=== PATIENT | male | born 1960 | race Hispanic/Latino ===

== ENCOUNTER 2020-08-29 21:43 | Inpatient (IN) | payer OTHER ==
[2020-08-29] MEDS ORDERED: SODIUM CHLORIDE 0.9% 1000 ML 1,000 ML IV ONE ×2 (21:56→23:44)
--- NOTE | 2020-08-29 22:05 | Emergency Department Report ---
HPI - General Chief Complaint: Fall Time Seen by Provider: 08/29/20 21:52 - HPI HPI: 59-year-old male with history of hypertension, PTSD, and alcohol use disorder brought in by EMS after he had a ground-level fall from standing sometime today. According to the EMS report, the patient's mother has a boyfriend who checks on him and went to check on him tonight and found him on the floor. The patient admits to drinking several beers today but cannot say how many. According to this individual, he has been drinking nonstop for the past 4 days, not eating, and falling frequently. He typically drinks a lot but has been drinking more over the past few days. The patient smells of alcohol but is alert and oriented x4. The patient does not remember suffering a fall. He states he has no complaints at this time including no headache, no vision change no neck pain no back pain no chest pain no abdominal pain no musculoskeletal pain in any other part of his body, as well as no focal weakness, numbness, or any other complaints. He does not remember his last tetanus shot. ED Past Medical Hx - Past Medical History Previous Medical History?: Yes Hx Hypertension: Yes Additional medical history: PTSD, Alcohol use disorder ED Review of Systems ROS: Stated complaint: ETOH,FALL Other details as noted in HPI Physical Exam - Physical Exam Physical Exam: GENERAL: Well developed and well nourished. No acute distress. Smells of alcohol. A & O x4. HEENT: Normocephalic. There are multiple bruises noted to the face of varying stages throughout. There is large amount of dried blood around the lips and mouth and with small blood clots seen within the mouth. There is no active bleeding. Very dry mucous membranes. Posterior pharynx is within normal limits. We will reassess this region once the patient has been cleaned up EYES: Extraocular movements are intact. Pupils are equal round and reactive to light bilaterally NECK: Trachea is midline. C-collar is in place LUNGS: Nonlabored breathing. Equal chest rise bilaterally. Clear to auscultation bilaterally. HEART/CARDIOVASCULAR: Tachycardic but with regular rhythm. No murmurs or rubs. VASCULAR: 2+ peripheral pulses. Cap refill < 2 seconds ABDOMEN: Abdomen is distended but soft and nontender. There is no significant tenderness, guarding or rebound. SKIN: Skin is warm and dry with scattered bruises of varying stages noted throughout the body including to the left lateral knee region, the right knee, and throughout both upper and lower extremities. NEURO: Patient is awake, alert, and oriented. 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 No focal deficits. Normal motor and sensory exam throughout. Normal speech. MUSCULOSKELETAL: No obvious deformities. No significant tenderness. Normal ROM throughout. There is no varus/valgus or anterior/posterior laxity of the bilateral knees. There is no tenderness of the malleoli or base of the fifth metatarsal bilaterally. There is no tenderness at the wrists, arms, shoulder, clavicle, or any other region. BACK/SPINE: The patient was rolled and there is no midline tenderness or step- offs of the C/T/L spine. No costovertebral angle tenderness. ED Medical Decision Making - Lab Data Result diagrams: 08/29/20 22:18 08/29/20 22:18 - EKG Data -: EKG Interpreted by Vt - EKG Data 08/30/20 00:14 Sinus tachycardia. Normal axis. Normal intervals. No ectopy. No significant ST segment or T wave abnormalities. - Radiology Data CT HEAD WITHOUT CONTRAST INDICATION / CLINICAL INFORMATION: trauma +etoh. TECHNIQUE: All CT scans at this location are performed using CT dose reduction for [employer] by means of automated exposure control. COMPARISON: None available. FINDINGS: HEMORRHAGE: None. EXTRA-AXIAL SPACES: Mildly prominent likely related to cortical atrophy. VENTRICULAR SYSTEM: Normal in size and morphology for the patient's age. CEREBRAL PARENCHYMA: No significant abnormality. No acute territorial infarct. MIDLINE SHIFT / HERNIATION: None. CEREBELLUM / BRAINSTEM: No significant abnormality. ORBITS: Normal as visualized. SOFT TISSUES: No significant abnormality. SKULL: No significant abnormality. PARANASAL SINUSES / MASTOID AIR CELLS: Normal as visualized. ADDITIONAL FINDINGS: None. IMPRESSION: 1. No acute intracranial abnormality. Signer Name: Jad Santillan MD Signed: 08/29/2020 10:06 PM Workstation Name: [id number] CT CERVICAL SPINE WITHOUT CONTRAST INDICATION / CLINICAL INFORMATION: fall, etoh. TECHNIQUE: Axial CT images were obtained through the cervical spine. Sagittal and coronal reformatted images were produced. All CT scans at this location are performed using CT dose reduction for ALARA by means of automated exposure control. COMPARISON: None available. FINDINGS: No fracture or dislocation is seen. There is multilevel degenerative change more severe in the lower cervical spine. There is disc space narrowing and osteophyte formation most prominent at C5-6 and C6-7. There is facet degenerative change throughout the cervical spine. Prevertebral soft tissues are unremarkable. LUNG APICES: No significant abnormality of visualized lungs. IMPRESSION: 1. No fracture or subluxation is seen. Degenerative changes are noted. Signer Name: Jad Santillan MD Signed: 08/29/2020 10:13 PM Workstation Name: [id number] CT facial bones wo con INDICATION: Facial trauma. TECHNIQUE: All CT scans at this location are performed using the following dose modulation technique: Automated exposure control. Helical slices were obtained through the facial bones. Coronal and sagittal reformatted images were obtained. COMPARISON: None available. FINDINGS: Mucosal thickening is noted in the maxillary sinuses. There is a mucous retention cyst in the right maxillary sinus. No fracture is seen. No dislocation is seen. No focal lytic or sclerotic lesions are seen. IMPRESSION: 1. No fracture is seen. Signer Name: Jad Santillan MD Signed: 08/29/2020 10:09 PM Workstation Name: [id number] - Medical Decision Making 5-year-old male with history of alcohol use disorder who admits to being intox icated and fell at some point today hitting his face on the carpet. Patient has apparently been drinking nonstop for the past 4 days. He has multiple bruises throughout his face and throughout his body of varying stages. He currently has no complaints but is amnesic to his fall. He has dried blood noted over his lips and intraorally with contusions noted to his lips. He has very dry mucous membranes. He is alert and oriented x4 and denies any complaints. The patient arrived in a c-collar. He does not remember his last Tdap. Examination reveals no evidence of musculoskeletal tenderness, reduced range of motion, or laxity at any of his joints. Nonetheless we will perform broad work-up with a full set of labs and CT of the head, cervical spine, and face to evaluate for injuries given that he is intoxicated and does not remember the fall as evidence of trauma. His vital signs are notable for tachycardia in the 130s. However he has very dry mucous membranes and appears to be fluid depleted. We will give 1 L of normal saline as well as 1 banana bag and Tdap. Will reassess the patient after he has been cleaned up and any open wounds/lacerations irrigated with saline. After the facial region was washed copiously with saline, I reexamined the area and there is a contusion noted to the bottom lip with a small overlying abrasion but no laceration. Intraorally there are no obvious lacerations or puncture wounds. Examination of the nares reveals no evidence of septal hematoma. There are no other lacerations noted to the head or face. At 10:30 PM, the nurse alerted me that the patient has started to show signs of withdrawal including tremulousness. He will be given 2 mg of Ativan. CIWA protocol will be initiated. CT of the head, C-spine, and face reveals no evidence of acute fracture or acute abnormalities. Labs have partially resulted and there is no significant leukocytosis or anemia. The patient's blood alcohol level is 0.43. I went to reassess the patient at 11:20 PM, and only 1 hour and 30 minutes after his arrival he now has fine tremor of his fingers and in his legs as well as a tongue lag. He is tachycardic and hypertensive. Although the patient was alert and oriented when he first arrived, he now states that he is confused. He states that he lives at home with roommates. However, the EMS story was that he was at home alone and that his mom's boyfriend checks on him daily. Given that the patient is showing signs of alcohol withdrawal at such a high blood alcohol level, I do not feel that he would be safe for discharge at this time. The patient's chemistry reveals signs of dehydration without significant electrolyte abnormalities. Kidney function is normal. His AST and ALT are elevated at 473 and 160 respectively, which is consistent with alcoholic hepatitis. I will add on a CK level given that we do not know how long the patient was down, although given his very high blood alcohol level I doubt he was down for very long. At 1:45 PM I spoke over the phone with Dr. Armenta, the on-call hospitalist regarding the case. He accepts the patient for admission and will assume care. I will follow up the CK level and update the admitting doctor regarding the results. For now I will add on an additional liter of IV fluids CK level only mildly elevated at 370. The patient's c-collar has been cleared. The hospitalist has been alerted. Critical Care Time: Yes Critical care time in (mins) excluding proc time.: 55 Critical care attestation.: If time is entered above; I have spent that time in minutes in the direct care of this critically ill patient, excluding procedure time. Critical care time was spent in the evaluation/assessment, work-up, and management of severe alcohol intoxication with evidence of head trauma and alcohol withdrawal requiring administration of IV lorazepam as well as frequent reevaluation reassessment. ED Disposition Clinical Impression: Alcohol intoxication, Fall, Facial injury, Alcohol abuse, Frequent falls, Alcohol withdrawal Disposition: DC-09 OP ADMIT IP TO THIS HOSP Is pt being admited?: Yes Condition: Stable
[2020-08-29] MEDS ORDERED: TETANUS,DIPH,PERTUSS(ACELL) VACCINE 0.5 ML SYRINGE IM ONE (22:14)
[2020-08-29] MEDS ORDERED: THIAMINE 100 MG, FOLIC ACID 1 MG, MULTIPLE VITAMIN INJ, ADULT 10 ML in SODIUM CHLORIDE ... IV ONE (22:30)
[2020-08-29] MEDS ORDERED: LORazepam 2 MG/ML VIAL IV ONE (22:55)
[2020-08-29 22:59] LABS: Hematocrit 39.7 % (35.5-45.6); Mean Corpuscular HGB Conc 35 % (32-34); Mean Corpuscular Volume 97 fl (84-94); Platelet Count 159 K/mm3 (140-440); Red Blood Count 4.08 M/mm3 (3.65-5.03); Red Cell Distribution Width 14.3 % (13.2-15.2)
[2020-08-29 23:10] LABS: INR 1.03 (0.87-1.13)
--- NOTE | 2020-08-29 23:10 | Cat Scan Report ---
CT HEAD WITHOUT CONTRAST INDICATION / CLINICAL INFORMATION: trauma +etoh. TECHNIQUE: All CT scans at this location are performed using CT dose reduction for [employer] by means of automated exposure control. COMPARISON: None available. FINDINGS: HEMORRHAGE: None. EXTRA-AXIAL SPACES: Mildly prominent likely related to cortical atrophy. VENTRICULAR SYSTEM: Normal in size and morphology for the patient's age. CEREBRAL PARENCHYMA: No significant abnormality. No acute territorial infarct. MIDLINE SHIFT / HERNIATION: None. CEREBELLUM / BRAINSTEM: No significant abnormality. ORBITS: Normal as visualized. SOFT TISSUES: No significant abnormality. SKULL: No significant abnormality. PARANASAL SINUSES / MASTOID AIR CELLS: Normal as visualized. ADDITIONAL FINDINGS: None. IMPRESSION: 1. No acute intracranial abnormality. Signer Name: Jad Santillan MD Signed: 08/29/2020 11:06 PM Workstation Name: [id number]
[2020-08-29 23:11] LABS: Partial Thromboplastin Time 31.1 Sec. (24.2-36.6)
--- NOTE | 2020-08-29 23:14 | Cat Scan Report ---
CT facial bones wo con INDICATION: Facial trauma. TECHNIQUE: All CT scans at this location are performed using the following dose modulation technique: Automated exposure control. Helical slices were obtained through the facial bones. Coronal and sagittal reforma tted images were obtained. COMPARISON: None available. FINDINGS: Mucosal thickening is noted in the maxillary sinuses. There is a mucous retention cyst in the right m axillary sinus. No fracture is seen. No dislocation is seen. No focal lytic or sclerotic lesions are seen. IMPRESSION: 1. No fracture is seen. Signer Name: Jad Santillan MD Signed: 08/29/2020 11:09 PM Workstation Name: [id number]
--- NOTE | 2020-08-29 23:17 | Cat Scan Report ---
CT CERVICAL SPINE WITHOUT CONTRAST INDICATION / CLINICAL INFORMATION: fall, etoh. TECHNIQUE: Axial CT images were obtained through the cervical spine. Sagittal and coronal reformatted images were produced. All CT scans at this location are performed using CT dose reduction for [employer] by means of automated exposure control. COMPARISON: None available. FINDINGS: No fracture or dislocation is seen. There is multilevel degenerative change more severe in the lower cervical spine. There is disc space narrowing and osteophyte formation most prominent at C5-6 and C6- 7. There is facet degenerative change throughout the cervical spine. Prevertebral soft tissues are u nremarkable. LUNG APICES: No significant abnormality of visualized lungs. IMPRESSION: 1. No fracture or subluxation is seen. Degenerative changes are noted. Signer Name: Jad Santillan MD Signed: 08/29/2020 11:13 PM Workstation Name: [id number]
[2020-08-29 23:24] LABS: Alanine Aminotransferase 160 units/L (7-56); Albumin 3.8 g/dL (3.9-5); Bilirubin,Direct 0.9 mg/dL (0-0.2); Blood Urea Nitrogen 3 mg/dL (9-20); Calcium 8.4 mg/dL (8.4-10.2); Hemolysis Index 2
[2020-08-29 23:37] LABS: BUN/Creatinine Ratio 5
[2020-08-30] MEDS ORDERED: ALBUTEROL 2.5 MG/3 ML NEBU IH PRN (00:19)
[2020-08-30] MEDS ORDERED: ONDANSETRON 4 MG/2 ML INJ IV PRN (00:19)
[2020-08-30] MEDS ORDERED: ACETAMINOPHEN 325 MG TAB PO PRN (00:19)
[2020-08-30 00:31] LABS: Amphetamine Screen,Urine PRESUMPTIVE NEGATIVE; Benzodiazepines Screen,Urine PRESUMPTIVE NEGATIVE; Cannabinoid Screen,Urine PRESUMPTIVE NEGATIVE; Cocaine Screen,Urine PRESUMPTIVE NEGATIVE; Methadone Screen,Urine PRESUMPTIVE NEGATIVE; Opiate Screen,Urine PRESUMPTIVE NEGATIVE
--- NOTE | 2020-08-30 00:32 | History and Physical Report ---
History of Present Illness Date of examination: 08/30/20 Date of admission: 08/30/2020 Chief complaint: Alcohol intoxication Fall History of present illness: 59-year-old male with history of hypertension, PTSD, and alcohol use disorder brought in by EMS after he had a ground-level fall from standing sometime today. According to the EMS report, the patient's mother has a boyfriend who checks on him and went to check on him tonight and found him on the floor. The patient admits to drinking several beers today but cannot say how many. According to this individual, he has been drinking nonstop for the past 4 days, not eating, and falling frequently. He typically drinks a lot but has been drinking more over the past few days. The patient smells of alcohol but is alert and oriented x4. The patient does not remember suffering a fall. He states he has no c omplaints at this time including no headache, no vision change no neck pain no back pain no chest pain no abdominal pain no musculoskeletal pain in any other part of his body, as well as no focal weakness, numbness, or any other complaints. He does not remember his last tetanus shot. In the emergency room patient alcohol level is 0.43. Also AST is 473 ALT [address] scan of the head shows no acute intracranial abnormality Past History Past Medical History: hypertension, other (PTSD alcohol abuse) Medications and Allergies Allergies Allergy/AdvReac Type Severity Reaction Status Date / Time No Known Allergies Allergy Verified 08/29/20 22:38 Active Meds: Active Medications Acetaminophen (Acetaminophen 325 Mg Tab) 650 mg PO Q4H PRN PRN Reason: Pain MILD(1-3)/Fever >100.5/AMOS Albuterol (Albuterol 2.5 Mg/3 Ml Nebu) 2.5 mg IH Q4HRT PRN PRN Reason: Shortness Of Breath Albuterol/Ipratropium (Ipratropium/Albuterol Sulfate 3 Ml Ampul.Neb) 1 ampul IH Q6HRT LEANNE Famotidine (Famotidine 20 Mg Tab) 20 mg PO BID LEANNE Thiamine HCl 100 mg/ Folic Acid 1 mg/ Multivitamins/Minerals 10 ml/ Sodium Chloride 1,011.2 mls @ 250 mls/hr IV ONCE ONE Stop: 08/30/20 02:32 Sodium Chloride (Nacl 0.9% 1000 Ml) 1,000 mls @ 999 mls/hr IV BOLUS ONE Stop: 08/30/20 00:44 Lorazepam (Lorazepam 2 Mg/Ml Vial) 2 mg IV Q1HR PRN PRN Reason: CIWA-Ar 8-15 Lorazepam (Lorazepam 2 Mg/Ml Vial) 4 mg IV Q1HR PRN PRN Reason: CIWA-Ar 16-25 Ondansetron HCl (Ondansetron 4 Mg/2 Ml Inj) 4 mg IV Q8H PRN PRN Reason: Nausea And Vomiting Sodium Chloride (Sodium Chloride 0.9% 10 Ml Flush Syringe) 10 ml IV BID LEANNE Sodium Chloride (Sodium Chloride 0.9% 10 Ml Flush Syringe) 10 ml IV PRN PRN PRN Reason: LINE FLUSH Review of Systems Constitutional: other (Fall) Ears, nose, mouth and throat: other (There are multiple bruises noted to the face of varying stages throughout. There is large amount of dried blood around the lips and mouth and with small blood clots seen within the mouth. There is no active bleeding. Very dry mucous membranes. Posterior pharynx is within normal limits. We will re) Exam - Constitutional Vitals: Temp Pulse Resp BP Pulse Ox 98.1 F 113 H 27 H 160/111 93 08/29/20 22:38 08/29/20 23:30 08/29/20 23:30 08/29/20 23:30 08/29/20 23:30 General appearance: Present: no acute distress, well-nourished, other (There are multiple bruises noted to the face of varying stages throughout. There is large amount of dried blood around the lips and mouth and with small blood clots seen within the mouth. There is no active bleeding. Very dry mucous membranes. Posterior pharynx is within normal limits. We will re) - EENT Eyes: Present: PERRL ENT: hearing intact, clear oral mucosa - Neck Neck: Present: supple, normal ROM - Respiratory Respiratory effort: normal Respiratory: bilateral: CTA - Cardiovascular Heart Sounds: Present: S1 & S2. Absent: rub, click - Extremities Extremities: pulses symmetrical, No edema Peripheral Pulses: within normal limits - Abdominal General gastrointestinal: Present: soft, non-tender, non-distended, normal bowel sounds Male genitourinary: Present: normal - Integumentary Integumentary: Present: clear, warm, dry - Musculoskeletal Musculoskeletal: gait normal, strength equal bilaterally - Psychiatric Psychiatric: appropriate mood/affect, intact judgment & insight - Neurologic Neurologic: CNII-XII intact, moves all extremities HEART Score - HEART Score Troponin: Troponin T < 0.010 ng/mL (0.00-0.029) 08/29/20 22:18 Results - Labs CBC & Chem 7: 08/29/20 22:18 08/29/20 22:18 Labs: Laboratory Last Values WBC 5.8 K/mm3 (4.5-11.0) 08/29/20 22:18 RBC 4.08 M/mm3 (3.65-5.03) 08/29/20 22:18 Hgb 14.0 gm/dl (11.8-15.2) 08/29/20 22:18 Hct 39.7 % (35.5-45.6) 08/29/20 22:18 MCV 97 fl (84-94) H 08/29/20 22:18 MCH 34 pg (28-32) H 08/29/20 22:18 MCHC 35 % (32-34) H 08/29/20 22:18 RDW 14.3 % (13.2-15.2) 08/29/20 22:18 Plt Count 159 K/mm3 (140-440) 08/29/20 22:18 PT 14.0 Sec. (12.2-14.9) 08/29/20 22:18 INR 1.03 (0.87-1.13) 08/29/20 22:18 APTT 31.1 Sec. (24.2-36.6) 08/29/20 22:18 Sodium 130 mmol/L (137-145) L 08/29/20 22:18 Potassium 3.6 mmol/L (3.6-5.0) 08/29/20 22:18 Chloride 91.1 mmol/L (98-107) L 08/29/20 22:18 Carbon Dioxide 16 mmol/L (22-30) L 08/29/20 22:18 Anion Gap 27 mmol/L 08/29/20 22:18 BUN 3 mg/dL (9-20) L 08/29/20 22:18 Creatinine 0.6 mg/dL (0.8-1.3) L 08/29/20 22:18 Estimated GFR > 60 ml/min 08/29/20 22:18 BUN/Creatinine Ratio 5 % 08/29/20 22:18 Glucose 87 mg/dL (75-100) 08/29/20 22:18 Calcium 8.4 mg/dL (8.4-10.2) 08/29/20 22:18 Magnesium 1.90 mg/dL (1.7-2.3) 08/29/20 22:18 Total Bilirubin 1.30 mg/dL (0.1-1.2) H 08/29/20 22:18 Direct Bilirubin 0.9 mg/dL (0-0.2) H 08/29/20 22:18 Indirect Bilirubin 0.4 mg/dL 08/29/20 22:18 AST 473 units/L (5-40) H 08/29/20 22:18 ALT 160 units/L (7-56) H 08/29/20 22:18 Alkaline Phosphatase 192 units/L (35-129) H 08/29/20 22:18 Total Creatine Kinase 374 units/L (55-170) H 08/29/20 22:30 Troponin T < 0.010 ng/mL (0.00-0.029) 08/29/20 22:18 Total Protein 7.2 g/dL (6.3-8.2) 08/29/20 22:18 Albumin 3.8 g/dL (3.9-5) L 08/29/20 22:18 Albumin/Globulin Ratio 1.1 % 08/29/20 22:18 Salicylates < 0.3 mg/dL (2.8-20.0) L 08/29/20 22:18 Acetaminophen 5.0 ug/mL (10.0-30.0) L 08/29/20 22:18 Plasma/Serum Alcohol 0.43 % (0-0.07) H 08/29/20 22:18 - Imaging and Cardiology CT Scan - head: report reviewed Assessment and Plan VTE prophylaxis?: Mechanical Plan of care discussed with patient/family: Yes - Patient Problems (1) Alcohol intoxication Current Visit: Yes Status: Acute Plan to address problem: Admit the patient to the medical telemetry. Counseled regarding quit drinking. Put the patient on CIWA protocol. We also put the patient on banana bag IV daily. Thiamine 100 mg IV daily and folic acid 1 mg IV daily. We will monitor the patient closely (2) Fall Current Visit: Yes Status: Acute Plan to address problem: Patient is on fall precaution. We also consult physical therapy (3) Facial injury Current Visit: Yes Status: Acute Plan to address problem: Face CT and cervical spine and head CT shows no acute injury. We will monitor the patient closely. We will put the patient on fall precaution (4) Hypertension Current Visit: Yes Status: Acute Plan to address problem: Hydralazine 10 mg IV every 6 hours as needed. We will monitor the blood pressure closely (5) Alcohol abuse Current Visit: Yes Status: Acute Plan to address problem: Counseled regarding quit drinking. Put the patient on CIWA protocol. We also put the patient on banana bag IV daily. Thiamine 100 mg IV daily and folic acid 1 mg IV daily. We will monitor the patient closely (6) PTSD (post-traumatic stress disorder) Current Visit: Yes Status: Acute Plan to address problem: We will monitor the patient closely. Outpatient follow-up with psych (7) DVT prophylaxis Current Visit: Yes Status: Acute Plan to address problem: SCD for DVT prophylaxis because of facial trauma. Pepcid 20 mg p.o. twice daily for GI prophylaxis. Patient is a full code
--- NOTE | 2020-08-30 00:38 | XRay Report ---
CHEST 1 VIEW 08/29/2020 11:23 PM INDICATION / CLINICAL INFORMATION: fall. COMPARISON: None available. FINDINGS: SUPPORT DEVICES: None. HEART / MEDIASTINUM: No significant abnormality. LUNGS / PLEURA: No significant pulmonary or pleural abnormality. No pneumothorax. ADDITIONAL FINDINGS: There is mild elevation of the right hemidiaphragm. IMPRESSION: 1. No acute findings. Signer Name: Jad Santillan MD Signed: 08/30/2020 12:33 AM Workstation Name: [id number]
[2020-08-30 01:25] LABS: Anisocytosis 1+; Platelet Estimate Consistent w Auto; Total Cells Counted 100
[2020-08-30] MEDS: LORazepam 2 MG/ML VIAL IV PRN ×6 (03:26→21:50)
[2020-08-30] MEDS: IPRATROPIUM/ALBUTEROL SULFATE 3 ML AMPUL.NEB IH SCH ×4 (03:48→20:17)
--- NOTE | 2020-08-30 10:30 | Gastroenterology Consultation ---
History of Present Illness - Reason for Consult Consult date: 08/30/20 abnormal liver enzymes Requesting physician: MERLIN UMANA - History of Present Illness The patient is a 59 yo male who presented after being found down/after a fall. History primarily obtained from chart review. pt with h/o alcohol abuse, he was sleeping but arousable and being treated for alcohol withdrawal. has tremors at bedside. he states last alcohol intake was prior to arrival. he does not provide more history on duration of alcohol use. noted to have elevated liver enzymes, primarily hepatocellular pattern with ast>alt. he is not aware of prior h/of known liver disease. denies abd pain. Past History Past Medical History: hypertension, other (PTSD alcohol abuse) Medications and Allergies Allergies Allergy/AdvReac Type Severity Reaction Status Date / Time No Known Allergies Allergy Verified 08/29/20 22:38 Active Meds: Active Medications Acetaminophen (Acetaminophen 325 Mg Tab) 650 mg PO Q4H PRN PRN Reason: Pain MILD(1-3)/Fever >100.5/AMOS Albuterol (Albuterol 2.5 Mg/3 Ml Nebu) 2.5 mg IH Q4HRT PRN PRN Reason: Shortness Of Breath Albuterol/Ipratropium (Ipratropium/Albuterol Sulfate 3 Ml Ampul.Neb) 1 ampul IH Q6HRT [facility] Last Admin: 08/30/20 10:05 Dose: 1 ampul Documented by: Famotidine (Famotidine 20 Mg Tab) 20 mg PO BID [facility] Thiamine HCl 100 mg/ Folic Acid 1 mg/ Multivitamins/Minerals 10 ml/ Sodium Chloride 1,011.2 mls @ 250 mls/hr IV DAILY ONE Stop: 08/31/20 02:32 Lorazepam (Lorazepam 2 Mg/Ml Vial) 2 mg IV Q1HR PRN PRN Reason: CIWA-Ar 8-15 Last Admin: 08/30/20 06:09 Dose: 2 mg Documented by: Lorazepam (Lorazepam 2 Mg/Ml Vial) 4 mg IV Q1HR PRN PRN Reason: VIJAY-Ar 16-25 Ondansetron HCl (Ondansetron 4 Mg/2 Ml Inj) 4 mg IV Q8H PRN PRN Reason: Nausea And Vomiting Sodium Chloride (Sodium Chloride 0.9% 10 Ml Flush Syringe) 10 ml IV BID LEANNE Sodium Chloride (Sodium Chloride 0.9% 10 Ml Flush Syringe) 10 ml IV PRN PRN PRN Reason: LINE FLUSH reviewed/updated patient's home and current medications Review of Systems - Review of Systems ROS unobtainable: due to mental status Exam - Constitutional Vital Signs: Temp Pulse Resp BP Pulse Ox 98.1 F 103 H 18 131/75 95 08/29/20 22:38 08/30/20 08:00 08/30/20 08:00 08/30/20 05:46 08/30/20 10:00 General appearance: disheveled, other (facial bruises) - EENT Eyes: PERRL, EOM intact - Respiratory Respiratory effort: normal Respiratory: bilateral: CTA - Cardiovascular Rhythm: regular Heart Sounds: Present: S1 & S2 - Gastrointestinal General gastrointestinal: Present: soft, non-tender, non-distended - Neurologic Neurological: oriented to person, other (resting tremors) - Labs CBC & Chem 7: 08/29/20 22:18 08/29/20 22:18 Lab Results: Laboratory Results - last 24 hr 08/29/20 08/29/20 08/29/20 22:18 22:18 22:18 WBC 5.8 RBC 4.08 Hgb 14.0 Hct 39.7 MCV 97 H MCH 34 H MCHC 35 H RDW 14.3 Plt Count 159 Add Manual Diff Complete Total Counted 100 Seg Neuts % (Manual) 84.0 H Lymphocytes % (Manual) 11.0 L Monocytes % (Manual) 4.0 Basophils % (Manual) 1.0 Nucleated RBC % Not Reportable Seg Neutrophils # Man 4.9 Band Neutrophils # 0.0 Lymphocytes # (Manual) 0.6 L Abs React Lymphs (Man) 0.0 Monocytes # (Manual) 0.2 Eosinophils # (Manual) 0.0 Basophils # (Manual) 0.1 Metamyelocytes # 0.0 Myelocytes # 0.0 Promyelocytes # 0.0 Blast Cells # 0.0 WBC Morphology Not Reportable Hypersegmented Neuts Not Reportable Hyposegmented Neuts Not Reportable Hypogranular Neuts Not Reportable Smudge Cells Not Reportable Toxic Granulation Not Reportable Toxic Vacuolation Not Reportable Dohle Bodies Not Reportable Pelger-Huet Anomaly Not Reportable César Rods Not Reportable Platelet Estimate Consistent w auto Clumped Platelets Not Reportable Plt Clumps, EDTA Not Reportable Large Platelets Not Reportable Giant Platelets Not Reportable Platelet Satelliting Not Reportable Plt Morphology Comment Not Reportable RBC Morphology Not Reportable Dimorphic RBCs Not Reportable Polychromasia Not Reportable Hypochromasia Not Reportable Poikilocytosis Not Reportable Anisocytosis 1+ Microcytosis Not Reportable Macrocytosis Not Reportable Spherocytes Not Reportable Pappenheimer Bodies Not Reportable Sickle Cells Not Reportable Target Cells Not Reportable Tear Drop Cells Not Reportable Ovalocytes Not Reportable Helmet Cells Not Reportable Singh-[place] Bodies Not Reportable [place]ering Rings Not Reportable Sukhjinder Cells Not Reportable Bite Cells Not Reportable Crenated Cell Not Reportable Elliptocytes Not Reportable Acanthocytes (Spur) Not Reportable Rouleaux Not Reportable Hemoglobin C Crystals Not Reportable Schistocytes Not Reportable Malaria parasites Not Reportable Abe Bodies Not Reportable Hem Pathologist Commnt No PT 14.0 INR 1.03 APTT 31.1 Sodium 130 L Potassium 3.6 Chloride 91.1 L Carbon Dioxide 16 L Anion Gap 27 BUN 3 L Creatinine 0.6 L Estimated GFR > 60 BUN/Creatinine Ratio 5 Glucose 87 Calcium 8.4 Magnesium Total Bilirubin 1.30 H Direct Bilirubin 0.9 H Indirect Bilirubin 0.4 AST 473 H ALT 160 H Alkaline Phosphatase 192 H Total Creatine Kinase Troponin T Total Protein 7.2 Albumin 3.8 L Albumin/Globulin Ratio 1.1 Salicylates Urine Opiates Screen Urine Methadone Screen Acetaminophen Ur Barbiturates Screen Ur Phencyclidine Scrn Ur Amphetamines Screen U Benzodiazepines Scrn Urine Cocaine Screen U Marijuana (THC) Screen Drugs of Abuse Note Plasma/Serum Alcohol 08/29/20 08/29/20 08/29/20 22:18 22:18 22:18 WBC RBC Hgb Hct MCV MCH MCHC RDW Plt Count Add Manual Diff Total Counted Seg Neuts % (Manual) Lymphocytes % (Manual) Monocytes % (Manual) Basophils % (Manual) Nucleated RBC % Seg Neutrophils # Man Band Neutrophils # Lymphocytes # (Manual) Abs React Lymphs (Man) Monocytes # (Manual) Eosinophils # (Manual) Basophils # (Manual) Metamyelocytes # Myelocytes # Promyelocytes # Blast Cells # WBC Morphology Hypersegmented Neuts Hyposegmented Neuts Hypogranular Neuts Smudge Cells Toxic Granulation Toxic Vacuolation Dohle Bodies Pelger-Huet Anomaly César Rods Platelet Estimate Clumped Platelets Plt Clumps, EDTA Large Platelets Giant Platelets Platelet Satelliting Plt Morphology Comment RBC Morphology Dimorphic RBCs Polychromasia Hypochromasia Poikilocytosis Anisocytosis Microcytosis Macrocytosis Spherocytes Pappenheimer Bodies Sickle Cells Target Cells Tear Drop Cells Ovalocytes Helmet Cells Singh-[place] Bodies [place] Rings [place] Cells Bite Cells Crenated Cell Elliptocytes Acanthocytes (Spur) Rouleaux Hemoglobin C Crystals Schistocytes Malaria parasites Abe Bodies Hem Pathologist Commnt PT INR APTT Sodium Potassium Chloride Carbon Dioxide Anion Gap BUN Creatinine Estimated GFR BUN/Creatinine Ratio Glucose Calcium Magnesium 1.90 Total Bilirubin Direct Bilirubin Indirect Bilirubin AST ALT Alkaline Phosphatase Total Creatine Kinase Troponin T < 0.010 Total Protein Albumin Albumin/Globulin Ratio Salicylates < 0.3 L Urine Opiates Screen Urine Methadone Screen Acetaminophen Ur Barbiturates Screen Ur Phencyclidine Scrn Ur Amphetamines Screen U Benzodiazepines Scrn Urine Cocaine Screen U Marijuana (THC) Screen Drugs of Abuse Note Plasma/Serum Alcohol 0.43 H 08/29/20 08/29/20 08/29/20 22:18 22:30 23:45 WBC RBC Hgb Hct MCV MCH MCHC RDW Plt Count Add Manual Diff Total Counted Seg Neuts % (Manual) Lymphocytes % (Manual) Monocytes % (Manual) Basophils % (Manual) Nucleated RBC % Seg Neutrophils # Man Band Neutrophils # Lymphocytes # (Manual) Abs React Lymphs (Man) Monocytes # (Manual) Eosinophils # (Manual) Basophils # (Manual) Metamyelocytes # Myelocytes # Promyelocytes # Blast Cells # WBC Morphology Hypersegmented Neuts Hyposegmented Neuts Hypogranular Neuts Smudge Cells Toxic Granulation Toxic Vacuolation Dohle Bodies Pelger-Huet Anomaly César Rods Platelet Estimate Clumped Platelets Plt Clumps, EDTA Large Platelets Giant Platelets Platelet Satelliting Plt Morphology Comment RBC Morphology Dimorphic RBCs Polychromasia Hypochromasia Poikilocytosis Anisocytosis Microcytosis Macrocytosis Spherocytes Pappenheimer Bodies Sickle Cells Target Cells Tear Drop Cells Ovalocytes Helmet Cells Singh-[place] Bodies [place] Rings [place] Cells Bite Cells Crenated Cell Elliptocytes Acanthocytes (Spur) Rouleaux Hemoglobin C Crystals Schistocytes Malaria parasites Abe Bodies Hem Pathologist Commnt PT INR APTT Sodium Potassium Chloride Carbon Dioxide Anion Gap BUN Creatinine Estimated GFR BUN/Creatinine Ratio Glucose Calcium Magnesium Total Bilirubin Direct Bilirubin Indirect Bilirubin AST ALT Alkaline Phosphatase Total Creatine Kinase 374 H Troponin T Total Protein Albumin Albumin/Globulin Ratio Salicylates Urine Opiates Screen Presumptive negative Urine Methadone Screen Presumptive negative Acetaminophen 5.0 L Ur Barbiturates Screen Presumptive negative Ur Phencyclidine Scrn Presumptive negative Ur Amphetamines Screen Presumptive negative U Benzodiazepines Scrn Presumptive negative Urine Cocaine Screen Presumptive negative U Marijuana (THC) Screen Presumptive negative Drugs of Abuse Note Disclamer Plasma/Serum Alcohol Assessment and Plan abnormal liver enzymes - likely alcoholic liver disease based on history and pattern of elevation. will check basic viral hep serologies, but would trend levels at present time otherwise. can obtain RUQ US as well but otherwise would manage conservatively and trend levels. if labs improve, no further inpatient work-up is needed from gi stand point. alcohol abuse/withdrawal - management per primary
[2020-08-30] MEDS: FAMOTIDINE 20 MG TAB PO SCH ×2 (11:19→21:15)
--- NOTE | 2020-08-30 11:36 | Progress Note ---
Assessment and Plan Assessment and plan: --Alcohol liver disease; Current Visit: Yes Status: Acute Secondary to chronic alcohol use Treat the underlying cause strongly advised to quit alcohol intake Closely monitor LFTs, GI evaluation noted and appreciated Follow hepatitis panel, supportive care --Alcohol withdrawal symptoms; Current Visit: Yes Status: Acute Initiate CIWA protocol Advised alcohol rehabilitation, alcohol Anonymous -- Alcohol intoxication Current Visit: Yes Status: Acute counseled regarding quit drinking. CIWA protocol. banana bag IV daily. Thiamine 100 mg IV daily and folic acid 1 mg IV daily. We will monitor the patient closely --Status post fall Current Visit: Yes Status: Acute Fall precautions, physical therapy and Occupational Therapy -- Facial injury Current Visit: Yes Status: Acute Face CT and cervical spine and head CT shows no acute injury. Fall precautions -- Hypertension Current Visit: Yes Status: Acute Hydralazine 10 mg IV every 6 hours as needed. We will monitor the blood pressure closely -- chronic alcohol abuse Current Visit: Yes Status: Acute Strongly advised to quit alcohol intake Also advised to seek alcohol rehabilitation And alcohol Anonymous when medically stable --PTSD (post-traumatic stress disorder) Current Visit: Yes Status: Acute We will monitor the patient closely. Outpatient follow-up with psych -- DVT prophylaxis Current Visit: Yes Status: Acute SCD for DVT prophylaxis because of facial trauma. Pepcid 20 mg p.o. twice daily for GI prophylaxis. 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 nurse Javascript Programmer recommendations noted and appreciated History Interval history: I have seen and examined the patient at the bedside Patient's chart and medications reviewed Patient is in acute alcohol intoxication mild tremulousness agitation minimally communicative vital signs reviewed Hospitalist Physical - Constitutional Vitals: Temp Pulse Resp BP Pulse Ox 98.4 F 91 H 17 130/76 96 08/30/20 10:31 08/30/20 10:31 08/30/20 10:31 08/30/20 10:31 08/30/20 10:31 General appearance: Present: no acute distress, well-nourished, other (There are multiple bruises noted to the face of varying stages throughout. There is large amount of dried blood around the lips and mouth and with small blood clots seen within the mouth. There is no active bleeding. Very dry mucous membranes. Posterior pharynx is within normal limits. We will re) - EENT Eyes: Present: PERRL, EOM intact - Neck Neck: Present: supple, normal ROM - Respiratory Respiratory effort: normal Respiratory: bilateral: diminished, negative: rales, rhonchi, wheezing - Cardiovascular Rhythm: regular Heart Sounds: Present: S1 & S2 - Extremities Extremities: no ischemia, No edema - Abdominal General gastrointestinal: soft, non-tender, non-distended, normal bowel sounds - Integumentary Integumentary: Present: clear, warm - Psychiatric Psychiatric: agitated, other (Confused) - Neurologic Neurologic: moves all extremities HEART Score - HEART Score Troponin: Troponin T < 0.010 ng/mL (0.00-0.029) 08/29/20 22:18 Results - Labs CBC & Chem 7: 08/29/20 22:18 08/29/20 22:18 Labs: Laboratory Last Values WBC 5.8 K/mm3 (4.5-11.0) 08/29/20 22:18 RBC 4.08 M/mm3 (3.65-5.03) 08/29/20 22:18 Hgb 14.0 gm/dl (11.8-15.2) 08/29/20 22:18 Hct 39.7 % (35.5-45.6) 08/29/20 22:18 MCV 97 fl (84-94) H 08/29/20 22:18 MCH 34 pg (28-32) H 08/29/20 22:18 MCHC 35 % (32-34) H 08/29/20 22:18 RDW 14.3 % (13.2-15.2) 08/29/20 22:18 Plt Count 159 K/mm3 (140-440) 08/29/20 22:18 Add Manual Diff Complete 08/29/20 22:18 Total Counted 100 08/29/20 22:18 Seg Neuts % (Manual) 84.0 % (40.0-70.0) H 08/29/20 22:18 Lymphocytes % (Manual) 11.0 % (13.4-35.0) L 08/29/20 22:18 Monocytes % (Manual) 4.0 % (0.0-7.3) 08/29/20 22:18 Basophils % (Manual) 1.0 % (0.0-1.8) 08/29/20 22:18 Nucleated RBC % Not Reportable 08/29/20 22:18 Seg Neutrophils # Man 4.9 K/mm3 (1.8-7.7) 08/29/20 22:18 Band Neutrophils # 0.0 K/mm3 08/29/20 22:18 Lymphocytes # (Manual) 0.6 K/mm3 (1.2-5.4) L 08/29/20 22:18 Abs React Lymphs (Man) 0.0 K/mm3 08/29/20 22:18 Monocytes # (Manual) 0.2 K/mm3 (0.0-0.8) 08/29/20 22:18 Eosinophils # (Manual) 0.0 K/mm3 (0.0-0.4) 08/29/20 22:18 Basophils # (Manual) 0.1 K/mm3 (0.0-0.1) 08/29/20 22:18 Metamyelocytes # 0.0 K/mm3 08/29/20 22:18 Myelocytes # 0.0 K/mm3 08/29/20 22:18 Promyelocytes # 0.0 K/mm3 08/29/20 22:18 Blast Cells # 0.0 K/mm3 08/29/20 22:18 WBC Morphology Not Reportable 08/29/20 22:18 Hypersegmented Neuts Not Reportable 08/29/20 22:18 Hyposegmented Neuts Not Reportable 08/29/20 22:18 Hypogranular Neuts Not Reportable 08/29/20 22:18 Smudge Cells Not Reportable 08/29/20 22:18 Toxic Granulation Not Reportable 08/29/20 22:18 Toxic Vacuolation Not Reportable 08/29/20 22:18 Dohle Bodies Not Reportable 08/29/20 22:18 Pelger-Huet Anomaly Not Reportable 08/29/20 22:18 César Rods Not Reportable 08/29/20 22:18 Platelet Estimate Consistent w auto 08/29/20 22:18 Clumped Platelets Not Reportable 08/29/20 22:18 Plt Clumps, EDTA Not Reportable 08/29/20 22:18 Large Platelets Not Reportable 08/29/20 22:18 Giant Platelets Not Reportable 08/29/20 22:18 Platelet Satelliting Not Reportable 08/29/20 22:18 Plt Morphology Comment Not Reportable 08/29/20 22:18 RBC Morphology Not Reportable 08/29/20 22:18 Dimorphic RBCs Not Reportable 08/29/20 22:18 Polychromasia Not Reportable 08/29/20 22:18 Hypochromasia Not Reportable 08/29/20 22:18 Poikilocytosis Not Reportable 08/29/20 22:18 Anisocytosis 1+ 08/29/20 22:18 Microcytosis Not Reportable 08/29/20 22:18 Macrocytosis Not Reportable 08/29/20 22:18 Spherocytes Not Reportable 08/29/20 22:18 Pappenheimer Bodies Not Reportable 08/29/20 22:18 Sickle Cells Not Reportable 08/29/20 22:18 Target Cells Not Reportable 08/29/20 22:18 Tear Drop Cells Not Reportable 08/29/20 22:18 Ovalocytes Not Reportable 08/29/20 22:18 Helmet Cells Not Reportable 08/29/20 22:18 Singh-[place] Bodies Not Reportable 08/29/20 22:18 [place] Rings Not Reportable 08/29/20 22:18 [place] Cells Not Reportable 08/29/20 22:18 Bite Cells Not Reportable 08/29/20 22:18 Crenated Cell Not Reportable 08/29/20 22:18 Elliptocytes Not Reportable 08/29/20 22:18 Acanthocytes (Spur) Not Reportable 08/29/20 22:18 Rouleaux Not Reportable 08/29/20 22:18 Hemoglobin C Crystals Not Reportable 08/29/20 22:18 Schistocytes Not Reportable 08/29/20 22:18 Malaria parasites Not Reportable 08/29/20 22:18 Abe Bodies Not Reportable 08/29/20 22:18 Hem Pathologist Commnt No 08/29/20 22:18 PT 14.0 Sec. (12.2-14.9) 08/29/20 22:18 INR 1.03 (0.87-1.13) 08/29/20 22:18 APTT 31.1 Sec. (24.2-36.6) 08/29/20 22:18 Sodium 130 mmol/L (137-145) L 08/29/20 22:18 Potassium 3.6 mmol/L (3.6-5.0) 08/29/20 22:18 Chloride 91.1 mmol/L (98-107) L 08/29/20 22:18 Carbon Dioxide 16 mmol/L (22-30) L 08/29/20 22:18 Anion Gap 27 mmol/L 08/29/20 22:18 BUN 3 mg/dL (9-20) L 08/29/20 22:18 Creatinine 0.6 mg/dL (0.8-1.3) L 08/29/20 22:18 Estimated GFR > 60 ml/min 08/29/20 22:18 BUN/Creatinine Ratio 5 % 08/29/20 22:18 Glucose 87 mg/dL (75-100) 08/29/20 22:18 Calcium 8.4 mg/dL (8.4-10.2) 08/29/20 22:18 Magnesium 1.90 mg/dL (1.7-2.3) 08/29/20 22:18 Total Bilirubin 1.30 mg/dL (0.1-1.2) H 08/29/20 22:18 Direct Bilirubin 0.9 mg/dL (0-0.2) H 08/29/20 22:18 Indirect Bilirubin 0.4 mg/dL 08/29/20 22:18 AST 473 units/L (5-40) H 08/29/20 22:18 ALT 160 units/L (7-56) H 08/29/20 22:18 Alkaline Phosphatase 192 units/L (35-129) H 08/29/20 22:18 Total Creatine Kinase 374 units/L (55-170) H 08/29/20 22:30 Troponin T < 0.010 ng/mL (0.00-0.029) 08/29/20 22:18 Total Protein 7.2 g/dL (6.3-8.2) 08/29/20 22:18 Albumin 3.8 g/dL (3.9-5) L 08/29/20 22:18 Albumin/Globulin Ratio 1.1 % 08/29/20 22:18 Salicylates < 0.3 mg/dL (2.8-20.0) L 08/29/20 22:18 Urine Opiates Screen Presumptive negative 08/29/20 23:45 Urine Methadone Screen Presumptive negative 07/17/21 23:45 Acetaminophen 5.0 ug/mL (10.0-30.0) L 08/29/20 22:18 Ur Barbiturates Screen Presumptive negative 08/29/20 23:45 Ur Phencyclidine Scrn Presumptive negative 08/29/20 23:45 Ur Amphetamines Screen Presumptive negative 08/29/20 23:45 U Benzodiazepines Scrn Presumptive negative 08/29/20 23:45 Urine Cocaine Screen Presumptive negative 08/29/20 23:45 U Marijuana (THC) Screen Presumptive negative 08/29/20 23:45 Drugs of Abuse Note Disclamer 08/29/20 23:45 Plasma/Serum Alcohol 0.43 % (0-0.07) H 08/29/20 22:18 Active Medications - Current Medications Current Medications: Generic Name Dose Route Start Last Admin Trade Name Freq PRN Reason Stop Dose Admin Acetaminophen 650 mg 08/30/20 00:19 Acetaminophen 325 Mg Tab PO Q4H PRN Pain MILD(1-3)/Fever >100.5/AMOS Albuterol 2.5 mg 08/30/20 00:19 Albuterol 2.5 Mg/3 Ml Nebu IH Q4HRT PRN Shortness Of Breath Albuterol/Ipratropium 1 ampul 08/30/20 02:00 08/30/20 10:05 Ipratropium/Albuterol Sulfate 3 Ml Ampul.Neb IH 1 ampul Q6HRT LEANNE Administration Famotidine 20 mg 08/30/20 10:00 08/30/20 11:19 Famotidine 20 Mg Tab PO 20 mg BID LEANNE Administration Thiamine HCl 100 mg/ Folic 1,011.2 mls @ 250 mls/hr 08/30/20 22:30 Acid 1 mg/ Multivitamins/ IV 08/31/20 02:32 Minerals 10 ml/ Sodium DAILY ONE Chloride Lorazepam 2 mg 08/29/20 23:15 08/30/20 06:09 Lorazepam 2 Mg/Ml Vial IV 2 mg Q1HR PRN Administration CIWA-Ar 8-15 Lorazepam 4 mg 08/29/20 23:15 Lorazepam 2 Mg/Ml Vial IV Q1HR PRN CIWA-Ar 16-25 Ondansetron HCl 4 mg 08/30/20 00:19 Ondansetron 4 Mg/2 Ml Inj IV Q8H PRN Nausea And Vomiting Sodium Chloride 10 ml 08/30/20 10:00 08/30/20 11:19 Sodium Chloride 0.9% 10 Ml Flush Syringe IV 10 ml BID LEANNE Administration Sodium Chloride 10 ml 08/30/20 00:19 Sodium Chloride 0.9% 10 Ml Flush Syringe IV PRN PRN LINE FLUSH
[2020-08-30 15:30] LABS: Hepatitis C Virus Antibody Non-Reactive (NonReactive)
--- NOTE | 2020-08-30 15:43 | Event Note ---
Date: 08/30/20 Patient's nurse Ms. Crowley called and reported that patient had brief episode of SVT with heart rate in 200s, It spontaneously resolved when I evaluated the patient patient's heart rate was in 120s sinus Patient has mild tremulousness denies any chest pain or shortness of breath, Patient with chronic alcohol history in alcohol withdrawals on [place] protocol Will add metoprolol 12.5 mg twice a day, 1 dose now Closely monitor, consult cardiology if needed Plan of care reviewed with the patient and his nurse.
[2020-08-30] MEDS ORDERED: METOPROLOL TARTRATE 25 MG TAB PO ONE (15:44)
[2020-08-30] MEDS ORDERED: METOPROLOL TARTRATE 5 MG/5 ML INJ IV PRN (16:52)
[2020-08-30] MEDS ORDERED: METOPROLOL TARTRATE 5 MG/5 ML INJ IV ONE (17:00)
--- NOTE | 2020-08-30 17:28 | Event Note ---
Date: 08/30/20 Patient had another episode of SVT with heart rate 180s to 200s, patient is asymptomatic Alert awake oriented, patient received IV metoprolol total 5 mg, vagal maneuvers used Cardioverted to sinus rhythm with heart rate 98-110 Advised IV metoprolol every 4 hours as needed for heart rate more than 130/min Also advised to continue CIWA protocol both with Ativan and Librium. Consulted on-call media promoter Dr. Willie Green, and I discussed with him patient's condition SVT, alcohol withdrawal CIWA protocol. Advised IV metoprolol every 4 hours as needed Plan of care reviewed with the nurse/and the charge nurse.
[2020-08-30 19:43] LABS: Blood Urea Nitrogen 3 mg/dL (9-20); Calcium 8.4 mg/dL (8.4-10.2); Hemolysis Index 4
[2020-08-30 19:51] LABS: BUN/Creatinine Ratio 6
[2020-08-30] MEDS: METOPROLOL TARTRATE 25 MG TAB PO SCH (21:15)
[2020-08-30] MEDS ORDERED: METOPROLOL TARTRATE 25 MG TAB PO SCH (22:00)
[2020-08-30] MEDS ORDERED: THIAMINE 100 MG, FOLIC ACID 1 MG, MULTIPLE VITAMIN INJ, ADULT 10 ML in SODIUM CHLORIDE ... IV ONE (22:30)
[2020-08-31] MEDS: LORazepam 2 MG/ML VIAL IV PRN ×7 (00:09→22:48)
[2020-08-31] MEDS: IPRATROPIUM/ALBUTEROL SULFATE 3 ML AMPUL.NEB IH SCH ×4 (02:24→21:03)
[2020-08-31 04:21] LABS: Basophils # (Auto) 0.1 K/mm3 (0.0-0.1); Basophils % (Auto) 1.2 % (0.0-1.8); Eosinophils % (Auto) 0.4 % (0.0-4.3); Hematocrit 41.8 % (35.5-45.6); Hemoglobin 13.9 gm/dl (11.8-15.2); Lymphocytes # (Auto) 0.8 K/mm3 (1.2-5.4); Lymphocytes % (Auto) 18.4 % (13.4-35.0); Mean Corpuscular HGB Conc 33 % (32-34); Mean Corpuscular Volume 103 fl (84-94); Monocytes # (Auto) 0.6 K/mm3 (0.0-0.8); Monocytes % (Auto) 13.3 % (0.0-7.3); Platelet Count 137 K/mm3 (140-440); Red Blood Count 4.06 M/mm3 (3.65-5.03); Red Cell Distribution Width 14.9 % (13.2-15.2)
[2020-08-31] MEDS: chlordiazePOXIDE 25 MG CAP PO PRN ×3 (04:41→22:47)
[2020-08-31 04:44] LABS: Alanine Aminotransferase 111 units/L (7-56); Albumin 3.6 g/dL (3.9-5); Blood Urea Nitrogen 6 mg/dL (9-20); Calcium 8.2 mg/dL (8.4-10.2); Hemolysis Index 10
[2020-08-31 04:55] LABS: BUN/Creatinine Ratio 12
[2020-08-31] MEDS: POTASSIUM CHLORIDE 10 MEQ 10 MEQ/100 ML BAG IV SCH ×4 (07:59→11:11)
--- NOTE | 2020-08-31 08:49 | Progress Note ---
Assessment and Plan Assessment and plan: --Hypokalemia; Current Visit: Yes Status: Acute . Replenished with KCl Magnesium levels normal range, monitor electrolytes --Hypophosphatemia; Current Visit: Yes Status: Acute. Replenished with sodium phosphate IV Monitor electrolytes --Intermittent SVT yesterday; Current Visit: Yes Status: Acute No new episodes of SVT the whole night This morning patient is in sinus rhythm tachycardia 115/min Continue beta-blockers, correct electrolyte imbalances Cardiology consulted --Alcohol withdrawal symptoms; Current Visit: Yes Status: Acute Continue CIWA , with Ativan and Librium per protocol --Chronic alcohol use; Current Visit: Yes Status: Chronic Strongly advised the patient to quit alcohol intake Advised to seek alcohol rehabilitation, alcohol Anonymous Patient verbalized understanding --Alcohol liver disease; Current Visit: Yes Status: Acute Secondary to chronic alcohol use Advised to quit alcohol intake LFTs trending down, GI evaluation noted and appreciated Hepatitis panel negative -- Alcohol intoxication/present on admission Current Visit: Yes Status: Acute Thiamine folic acid multivitamins Supportive care, advised to quit Currently patient has alcohol withdrawals on CIWA protocol --Status post fall Current Visit: Yes Status: Acute Fall precautions, physical therapy and Occupational Therapy -- Facial injury Current Visit: Yes Status: Acute Face CT and cervical spine and head CT shows no acute injury. Fall precautions, PT OT when patient is stable -- Hypertension Current Visit: Yes Status: Acute Hydralazine 10 mg IV every 6 hours as needed. We will monitor the blood pressure closely -- chronic alcohol abuse Current Visit: Yes Status: Acute Strongly advised to quit alcohol intake Also advised to seek alcohol rehabilitation And alcohol Anonymous when medically stable --PTSD (post-traumatic stress disorder) Current Visit: Yes Status: Acute We will monitor the patient closely. Outpatient follow-up with psych -- DVT prophylaxis; Current Visit: Yes Status: Acute SCD for DVT prophylaxis because of facial trauma. Pepcid 20 mg p.o. twice daily for GI prophylaxis. 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 nurse Hospice Team Lead recommendations noted and appreciated Brief history and daily hospital course: 08/30/2020; patient is on CIWA protocols Had intermittent SVTs resolved with beta-blockers Cardiology consulted 08/31/2020; no new episodes of SVT Continues to be on CIWA protocols LFTs trending down, GI following Recommend PT OT when medically stable Hypokalemia, hypophosphatemia, replace per protocols History Interval history: I have seen and examined the patient in the morning at the bedside Patient is on CIWA protocol, alert and awake Mild tremulousness, sinus rhythm heart rate in 80s-90s Not in acute distress Vital signs reviewed Hospitalist Physical - Constitutional Vitals: Temp Pulse Resp BP Pulse Ox 97.7 F 80 20 134/98 97 08/31/20 06:18 08/31/20 08:00 08/31/20 08:00 08/31/20 06:18 08/31/20 08:13 General appearance: Present: no acute distress, well-nourished, other (Mild tremulousness) - EENT Eyes: Present: PERRL, EOM intact - Neck Neck: Present: supple, normal ROM - Respiratory Respiratory effort: normal Respiratory: bilateral: diminished, negative: rales, rhonchi, wheezing - Cardiovascular Rhythm: regular Heart Sounds: Present: S1 & S2 - Extremities Extremities: no ischemia, No edema - Abdominal General gastrointestinal: soft, non-tender, non-distended, normal bowel sounds - Integumentary Integumentary: Present: clear, warm - Psychiatric Psychiatric: appropriate mood/affect, cooperative - Neurologic Neurologic: CNII-XII intact, moves all extremities HEART Score - HEART Score Troponin: Troponin T < 0.010 ng/mL (0.00-0.029) 08/29/20 22:18 Results - Labs CBC & Chem 7: 08/31/20 03:37 08/31/20 03:37 Labs: Laboratory Last Values WBC 4.6 K/mm3 (4.5-11.0) 08/31/20 03:37 RBC 4.06 M/mm3 (3.65-5.03) 08/31/20 03:37 Hgb 13.9 gm/dl (11.8-15.2) 08/31/20 03:37 Hct 41.8 % (35.5-45.6) 08/31/20 03:37 MCV 103 fl (84-94) H 08/31/20 03:37 MCH 34 pg (28-32) H 08/31/20 03:37 MCHC 33 % (32-34) 08/31/20 03:37 RDW 14.9 % (13.2-15.2) 08/31/20 03:37 Plt Count 137 K/mm3 (140-440) L 08/31/20 03:37 Lymph % (Auto) 18.4 % (13.4-35.0) 08/31/20 03:37 Bleckley % (Auto) 13.3 % (0.0-7.3) H 08/31/20 03:37 Eos % (Auto) 0.4 % (0.0-4.3) 08/31/20 03:37 Baso % (Auto) 1.2 % (0.0-1.8) 08/31/20 03:37 Lymph # (Auto) 0.8 K/mm3 (1.2-5.4) L 08/31/20 03:37 Bleckley # (Auto) 0.6 K/mm3 (0.0-0.8) 08/31/20 03:37 Eos # (Auto) 0.0 K/mm3 (0.0-0.4) 08/31/20 03:37 Baso # (Auto) 0.1 K/mm3 (0.0-0.1) 08/31/20 03:37 Add Manual Diff Complete 08/29/20 22:18 Total Counted 100 08/29/20 22:18 Seg Neutrophils % 66.7 % (40.0-70.0) 08/31/20 03:37 Seg Neuts % (Manual) 84.0 % (40.0-70.0) H 08/29/20 22:18 Lymphocytes % (Manual) 11.0 % (13.4-35.0) L 08/29/20 22:18 Monocytes % (Manual) 4.0 % (0.0-7.3) 08/29/20 22:18 Basophils % (Manual) 1.0 % (0.0-1.8) 08/29/20 22:18 Nucleated RBC % Not Reportable 08/29/20 22:18 Seg Neutrophils # 3.0 K/mm3 (1.8-7.7) 08/31/20 03:37 Seg Neutrophils # Man 4.9 K/mm3 (1.8-7.7) 08/29/20 22:18 Band Neutrophils # 0.0 K/mm3 08/29/20 22:18 Lymphocytes # (Manual) 0.6 K/mm3 (1.2-5.4) L 08/29/20 22:18 Abs React Lymphs (Man) 0.0 K/mm3 08/29/20 22:18 Monocytes # (Manual) 0.2 K/mm3 (0.0-0.8) 08/29/20 22:18 Eosinophils # (Manual) 0.0 K/mm3 (0.0-0.4) 08/29/20 22:18 Basophils # (Manual) 0.1 K/mm3 (0.0-0.1) 08/29/20 22:18 Metamyelocytes # 0.0 K/mm3 08/29/20 22:18 Myelocytes # 0.0 K/mm3 08/29/20 22:18 Promyelocytes # 0.0 K/mm3 08/29/20 22:18 Blast Cells # 0.0 K/mm3 08/29/20 22:18 WBC Morphology Not Reportable 08/29/20 22:18 Hypersegmented Neuts Not Reportable 08/29/20 22:18 Hyposegmented Neuts Not Reportable 08/29/20 22:18 Hypogranular Neuts Not Reportable 08/29/20 22:18 Smudge Cells Not Reportable 08/29/20 22:18 Toxic Granulation Not Reportable 08/29/20 22:18 Toxic Vacuolation Not Reportable 08/29/20 22:18 Dohle Bodies Not Reportable 08/29/20 22:18 Pelger-Huet Anomaly Not Reportable 08/29/20 22:18 César Rods Not Reportable 08/29/20 22:18 Platelet Estimate Consistent w auto 08/29/20 22:18 Clumped Platelets Not Reportable 08/29/20 22:18 Plt Clumps, EDTA Not Reportable 08/29/20 22:18 Large Platelets Not Reportable 08/29/20 22:18 Giant Platelets Not Reportable 08/29/20 22:18 Platelet Satelliting Not Reportable 08/29/20 22:18 Plt Morphology Comment Not Reportable 08/29/20 22:18 RBC Morphology Not Reportable 08/29/20 22:18 Dimorphic RBCs Not Reportable 08/29/20 22:18 Polychromasia Not Reportable 08/29/20 22:18 Hypochromasia Not Reportable 08/29/20 22:18 Poikilocytosis Not Reportable 08/29/20 22:18 Anisocytosis 1+ 08/29/20 22:18 Microcytosis Not Reportable 08/29/20 22:18 Macrocytosis Not Reportable 08/29/20 22:18 Spherocytes Not Reportable 08/29/20 22:18 Pappenheimer Bodies Not Reportable 08/29/20 22:18 Sickle Cells Not Reportable 08/29/20 22:18 Target Cells Not Reportable 08/29/20 22:18 Tear Drop Cells Not Reportable 08/29/20 22:18 Ovalocytes Not Reportable 08/29/20 22:18 Helmet Cells Not Reportable 08/29/20 22:18 Singh-Mellott Bodies Not Reportable 08/29/20 22:18 [place] Rings Not Reportable 08/29/20 22:18 Sukhjinder Cells Not Reportable 08/29/20 22:18 Bite Cells Not Reportable 08/29/20 22:18 Crenated Cell Not Reportable 08/29/20 22:18 Elliptocytes Not Reportable 08/29/20 22:18 Acanthocytes (Spur) Not Reportable 08/29/20 22:18 Rouleaux Not Reportable 08/29/20 22:18 Hemoglobin C Crystals Not Reportable 08/29/20 22:18 Schistocytes Not Reportable 08/29/20 22:18 Malaria parasites Not Reportable 08/29/20 22:18 Abe Bodies Not Reportable 08/29/20 22:18 Hem Pathologist Commnt No 08/29/20 22:18 PT 14.0 Sec. (12.2-14.9) 08/29/20 22:18 INR 1.03 (0.87-1.13) 08/29/20 22:18 APTT 31.1 Sec. (24.2-36.6) 08/29/20 22:18 Sodium 139 mmol/L (137-145) 08/31/20 03:37 Potassium 3.4 mmol/L (3.6-5.0) L 08/31/20 03:37 Chloride 97.8 mmol/L (98-107) L 08/31/20 03:37 Carbon Dioxide 25 mmol/L (22-30) 08/31/20 03:37 Anion Gap 20 mmol/L 08/31/20 03:37 BUN 6 mg/dL (9-20) L 08/31/20 03:37 Creatinine 0.5 mg/dL (0.8-1.3) L 08/31/20 03:37 Estimated GFR > 60 ml/min 08/31/20 03:37 BUN/Creatinine Ratio 12 % 08/31/20 03:37 Glucose 92 mg/dL (75-100) 08/31/20 03:37 Calcium 8.2 mg/dL (8.4-10.2) L 08/31/20 03:37 Phosphorus 2.20 mg/dL (2.5-4.5) L 08/31/20 03:37 Magnesium 1.90 mg/dL (1.7-2.3) 08/31/20 03:37 Total Bilirubin 1.80 mg/dL (0.1-1.2) H 08/31/20 03:37 Direct Bilirubin 0.9 mg/dL (0-0.2) H 08/29/20 22:18 Indirect Bilirubin 0.4 mg/dL 08/29/20 22:18 AST 263 units/L (5-40) H 08/31/20 03:37 ALT 111 units/L (7-56) H 08/31/20 03:37 Alkaline Phosphatase 156 units/L (35-129) H 08/31/20 03:37 Total Creatine Kinase 374 units/L (55-170) H 08/29/20 22:30 Troponin T < 0.010 ng/mL (0.00-0.029) 08/29/20 22:18 Total Protein 6.4 g/dL (6.3-8.2) 08/31/20 03:37 Albumin 3.6 g/dL (3.9-5) L 08/31/20 03:37 Albumin/Globulin Ratio 1.3 % 08/31/20 03:37 Salicylates < 0.3 mg/dL (2.8-20.0) L 08/29/20 22:18 Urine Opiates Screen Presumptive negative 08/29/20 23:45 Urine Methadone Screen Presumptive negative 08/29/20 23:45 Acetaminophen 5.0 ug/mL (10.0-30.0) L 08/29/20 22:18 Ur Barbiturates Screen Presumptive negative 07/17/21 23:45 Ur Phencyclidine Scrn Presumptive negative 08/29/20 23:45 Ur Amphetamines Screen Presumptive negative 08/29/20 23:45 U Benzodiazepines Scrn Presumptive negative 08/29/20 23:45 Urine Cocaine Screen Presumptive negative 08/29/20 23:45 U Marijuana (THC) Screen Presumptive negative 08/29/20 23:45 Drugs of Abuse Note Disclamer 08/29/20 23:45 Plasma/Serum Alcohol 0.43 % (0-0.07) H 08/29/20 22:18 Hepatitis A IgM Ab Non-reactive (NonReactive) 08/30/20 13:37 Hep Bs Antigen Non-reactive (Negative) 08/30/20 13:37 Hepatitis C Antibody Non-reactive (NonReactive) 08/30/20 13:37 Saldana/IV: Voiding Method External Female Catheter Active Medications - Current Medications Current Medications: Generic Name Dose Route Start Last Admin Trade Name Freq PRN Reason Stop Dose Admin Acetaminophen 650 mg 08/30/20 00:19 Acetaminophen 325 Mg Tab PO Q4H PRN Pain MILD(1-3)/Fever >100.5/AMOS Albuterol 2.5 mg 08/30/20 00:19 Albuterol 2.5 Mg/3 Ml Nebu IH Q4HRT PRN Shortness Of Breath Albuterol/Ipratropium 1 ampul 08/30/20 02:00 08/31/20 08:12 Ipratropium/Albuterol Sulfate 3 Ml Ampul.Neb IH 1 ampul Q6HRT LEANNE Administration Chlordiazepoxide HCl 100 mg 08/30/20 17:05 08/31/20 04:41 Chlordiazepoxide 25 Mg Cap PO 100 mg Q1H PRN Administration CIWA-Ar 16-25 Famotidine 20 mg 08/30/20 10:00 08/30/20 21:15 Famotidine 20 Mg Tab PO 20 mg BID LEANNE Administration Potassium Chloride 10 meq in 100 mls @ 100 mls/hr 08/31/20 07:00 08/31/20 08:13 Kcl 10meq/100ml IV 08/31/20 10:59 100 mls/hr Q1H LEANNE Administration Lorazepam 2 mg 08/29/20 23:15 08/30/20 06:09 Lorazepam 2 Mg/Ml Vial IV 2 mg Q1HR PRN Administration CIWA-Ar 8-15 Lorazepam 4 mg 08/29/20 23:15 08/31/20 02:35 Lorazepam 2 Mg/Ml Vial IV 4 mg Q1HR PRN Administration CIWA-Ar 16-25 Metoprolol Tartrate 5 mg 08/30/20 17:23 Metoprolol Tartrate 5 Mg/5 Ml Inj IV Q4H PRN Tachyarrhythmias Metoprolol Tartrate 25 mg 08/30/20 22:00 08/30/20 21:15 Metoprolol Tartrate 25 Mg Tab PO 25 mg BID LEANNE Administration Ondansetron HCl 4 mg 08/30/20 00:19 Ondansetron 4 Mg/2 Ml Inj IV Q8H PRN Nausea And Vomiting Sodium Chloride 10 ml 08/30/20 10:00 08/30/20 21:18 Sodium Chloride 0.9% 10 Ml Flush Syringe IV 10 ml BID LEANNE Administration Sodium Chloride 10 ml 08/30/20 00:19 Sodium Chloride 0.9% 10 Ml Flush Syringe IV PRN PRN LINE FLUSH Thiamine HCl 100 mg 08/31/20 10:00 Thiamine 100 Mg Tab PO QDAY [facility] Vitamin B Complex/Folic Acid 1 each 08/31/20 10:00 Folbee Plus Cz (Folic Acid/Vit Bcomp&C/Cu/Znox) PO QDAY [facility]
[2020-08-31] MEDS: METOPROLOL TARTRATE 25 MG TAB PO SCH ×2 (09:04→22:48)
[2020-08-31] MEDS: THIAMINE 100 MG TAB PO SCH (09:04)
[2020-08-31] MEDS: FOLBEE PLUS CZ (FOLIC ACID/VIT BCOMP&C/CU/ZNOX) PO SCH (09:04)
[2020-08-31] MEDS: FAMOTIDINE 20 MG TAB PO SCH ×2 (09:04→23:05)
--- NOTE | 2020-08-31 10:07 | Gastroenterology Progress Note ---
Assessment and Plan abnormal liver enzymes - likely alcohol related liver disease. trending down. viral hep serologies negative. no further inpatient work-up needed at this time. will sign off, please call as needed. Subjective Date of service: 08/31/20 Principal diagnosis: abnormal liver enzymes Interval history: no new gi complaints/obvious sx's. Objective - Exam Narrative Exam: gen: tremors, nad, some confusion abd: soft, nt, nd - Constitutional Vitals: Temp Pulse Resp BP Pulse Ox 97.7 F 80 20 134/98 97 08/31/20 06:18 08/31/20 08:00 08/31/20 08:00 08/31/20 06:18 08/31/20 08:13 - Labs CBC & Chem 7: 08/31/20 03:37 08/31/20 03:37 Labs: Laboratory Results - last 24 hr 08/30/20 08/30/20 08/30/20 13:37 13:37 18:52 WBC RBC Hgb Hct MCV MCH MCHC RDW Plt Count Lymph % (Auto) Dillon % (Auto) Eos % (Auto) Baso % (Auto) Lymph # (Auto) Dillon # (Auto) Eos # (Auto) Baso # (Auto) Seg Neutrophils % Seg Neutrophils # Sodium 138 D Potassium 3.5 L Chloride 95.8 L Carbon Dioxide 22 Anion Gap 24 BUN 3 L Creatinine 0.5 L Estimated GFR > 60 BUN/Creatinine Ratio 6 Glucose 66 L Calcium 8.4 Phosphorus Magnesium 1.90 Total Bilirubin AST ALT Alkaline Phosphatase Total Protein Albumin Albumin/Globulin Ratio Hepatitis A IgM Ab Non-reactive Hep Bs Antigen Non-reactive Hepatitis C Antibody Non-reactive 08/31/20 08/31/20 03:37 03:37 WBC 4.6 RBC 4.06 Hgb 13.9 Hct 41.8 MCV 103 H MCH 34 H MCHC 33 RDW 14.9 Plt Count 137 L Lymph % (Auto) 18.4 Dillon % (Auto) 13.3 H Eos % (Auto) 0.4 Baso % (Auto) 1.2 Lymph # (Auto) 0.8 L Dillon # (Auto) 0.6 Eos # (Auto) 0.0 Baso # (Auto) 0.1 Seg Neutrophils % 66.7 Seg Neutrophils # 3.0 Sodium 139 Potassium 3.4 L Chloride 97.8 L Carbon Dioxide 25 Anion Gap 20 BUN 6 L Creatinine 0.5 L Estimated GFR > 60 BUN/Creatinine Ratio 12 Glucose 92 Calcium 8.2 L Phosphorus 2.20 L Magnesium 1.90 Total Bilirubin 1.80 H AST 263 H ALT 111 H Alkaline Phosphatase 156 H Total Protein 6.4 Albumin 3.6 L Albumin/Globulin Ratio 1.3 Hepatitis A IgM Ab Hep Bs Antigen Hepatitis C Antibody
--- NOTE | 2020-08-31 15:36 | Consultation ---
History of Present Illness Consult date: 08/31/20 Requesting physician: ÁLVARO SCHWARZ Consult reason: tachycardia History of present illness: This patient is a 59-year-old male with a significant history of hypertension, PTSD, alcohol use disorder. He is previously known to our practice. Patient presents to [facility] via EMS secondary to ground-level fall. Blood alcohol level was initially found to be 0.43 and emergency room. Patient is currently being treated for delirium tremens secondary to alcohol withdrawal under [facility] protocol. Cardiology is consulted for episodes of SVT/atrial tach in the 200s. At time of interview patient denies any chest pain or shortness of breath, weakness, dizziness, N/V/D, recent illness or known exposures. Past History Past Medical History: hypertension, other (PTSD alcohol abuse) Medications and Allergies Allergies Allergy/AdvReac Type Severity Reaction Status Date / Time No Known Allergies Allergy Verified 08/29/20 22:38 Active Meds: Active Medications Acetaminophen (Acetaminophen 325 Mg Tab) 650 mg PO Q4H PRN PRN Reason: Pain MILD(1-3)/Fever >100.5/AMOS Albuterol (Albuterol 2.5 Mg/3 Ml Nebu) 2.5 mg IH Q4HRT PRN PRN Reason: Shortness Of Breath Albuterol/Ipratropium (Ipratropium/Albuterol Sulfate 3 Ml Ampul.Neb) 1 ampul IH Q6HRT [facility] Last Admin: 08/31/20 14:31 Dose: 1 ampul Documented by: Chlordiazepoxide HCl (Chlordiazepoxide 25 Mg Cap) 100 mg PO Q1H PRN PRN Reason: Shannan Last Admin: 08/31/20 09:05 Dose: 100 mg Documented by: Famotidine (Famotidine 20 Mg Tab) 20 mg PO BID [facility] Last Admin: 08/31/20 09:04 Dose: 20 mg Documented by: Lorazepam (Lorazepam 2 Mg/Ml Vial) 2 mg IV Q1HR PRN PRN Reason: Shannan - Last Admin: 08/30/20 06:09 Dose: 2 mg Documented by: Lorazepam (Lorazepam 2 Mg/Ml Vial) 4 mg IV Q1HR PRN PRN Reason: Shannan Last Admin: 08/31/20 13:47 Dose: 4 mg Documented by: Metoprolol Tartrate (Metoprolol Tartrate 5 Mg/5 Ml Inj) 5 mg IV Q4H PRN PRN Reason: Tachyarrhythmias Metoprolol Tartrate (Metoprolol Tartrate 25 Mg Tab) 25 mg PO BID [facility] Last Admin: 08/31/20 09:04 Dose: 25 mg Documented by: Ondansetron HCl (Ondansetron 4 Mg/2 Ml Inj) 4 mg IV Q8H PRN PRN Reason: Nausea And Vomiting Sodium Chloride (Sodium Chloride 0.9% 10 Ml Flush Syringe) 10 ml IV BID [facility] Last Admin: 08/31/20 09:05 Dose: 10 ml Documented by: Sodium Chloride (Sodium Chloride 0.9% 10 Ml Flush Syringe) 10 ml IV PRN PRN PRN Reason: LINE FLUSH Thiamine HCl (Thiamine 100 Mg Tab) 100 mg PO QDAY [facility] Last Admin: 08/31/20 09:04 Dose: 100 mg Documented by: Vitamin B Complex/Folic Acid (Folbee Plus Cz (Folic Acid/Vit Bcomp&C/Cu/Znox)) 1 each PO QDAY [facility] Last Admin: 08/31/20 09:04 Dose: 1 each Documented by: Review of Systems Constitutional: no weight loss, no weight gain, no fever, no chills, no sweats, no night sweats Ears, nose, mouth and throat: no ear pain, no nose pain, no nasal congestion, no nasal discharge Cardiovascular: no chest pain, no orthopnea, no palpitations, no rapid/irregular heart beat, no edema, no syncope Respiratory: no cough, no hemoptysis, no shortness of breath, no dyspnea on exertion Gastrointestinal: no abdominal pain, no nausea, no vomiting, no diarrhea Genitourinary Male: no flank pain Musculoskeletal: no neck stiffness, no neck pain, no shooting arm pain, no arm numbness/tingling, no low back pain, no shooting leg pain Integumentary: wounds, no rash, no pruritis, no redness, no sores Neurological: head injury, no paralysis, no weakness, no parathesias, no numbness, no tingling, no seizures, no syncope Psychiatric: no anxiety Endocrine: no cold intolerance, no heat intolerance Hematologic/Lymphatic: easy bruising, no easy bleeding Allergic/Immunologic: no urticaria Physical Examination Last Vital Signs Temp 97.8 F 08/31/20 11:33 Pulse 73 08/31/20 14:00 Resp 18 08/31/20 14:00 BP 160/105 08/31/20 11:33 Pulse Ox 94 08/31/20 11:33 General appearance: no acute distress HEENT: Positive: PERRL, Normocephaly, Mucus Membranes Moist Neck: Positive: neck supple, trachea midline Cardiac: Positive: Reg Rate and Rhythm, S1/S2 Lungs: Positive: Normal Exam, Normal Breath Sounds Neuro: Positive: Grossly Intact Abdomen: Positive: Unremarkable, Soft Skin: Positive: Bruising. Negative: Rash, Wound Musculoskeletal: Normal Range of Motion Extremities: Present: upper extr. pulses, lower extr. pulses. Absent: edema Results 08/31/20 03:37 08/31/20 03:37 Cardiac Enzymes 08/31/20 Range/Units 03:37 AST 263 H (5-40) units/L CBC 08/31/20 Range/Units 03:37 WBC 4.6 (4.5-11.0) K/mm3 RBC 4.06 (3.65-5.03) M/mm3 Hgb 13.9 (11.8-15.2) gm/dl Hct 41.8 (35.5-45.6) % Plt Count 137 L (140-440) K/mm3 Lymph # (Auto) 0.8 L (1.2-5.4) K/mm3 Wheeler # (Auto) 0.6 (0.0-0.8) K/mm3 Eos # (Auto) 0.0 (0.0-0.4) K/mm3 Baso # (Auto) 0.1 (0.0-0.1) K/mm3 Comprehensive Metabolic Panel 08/30/20 08/31/20 Range/Units 18:52 03:37 Sodium 138 D 139 (137-145) mmol/L Potassium 3.5 L 3.4 L (3.6-5.0) mmol/L Chloride 95.8 L 97.8 L (98-107) mmol/L Carbon Dioxide 22 25 (22-30) mmol/L BUN 3 L 6 L (9-20) mg/dL Creatinine 0.5 L 0.5 L (0.8-1.3) mg/dL Glucose 66 L 92 (75-100) mg/dL Calcium 8.4 8.2 L (8.4-10.2) mg/dL AST 263 H (5-40) units/L ALT 111 H (7-56) units/L Alkaline Phosphatase 156 H (35-129) units/L Total Protein 6.4 (6.3-8.2) g/dL Albumin 3.6 L (3.9-5) g/dL - Imaging and Cardiology Echo: pending EKG: report reviewed, image reviewed EKG interpretations - Telemetry EKG Rhythm: Sinus Rhythm - EKG Sinus rhythms and dysrhythmias: sinus tachycardia Assessment and Plan Nonsustained SVT secondary to delirium tremens/alcohol withdrawal * Review of telemetry shows sinus rhythm 84 with episodes of atrial tachycardia in 200s. * Patient is currently chest pain-free with no cardiac complaints. Twelve-lead ECG shows sinus tach 109 with no acute ischemic changes. Troponins negative x1. Will repeat cardiac enzymes. * Echocardiogram is pending. Continue to monitor on telemetry. Alcohol withdrawal secondary to chronic alcohol dependence * Being treated for delirium tremens under [facility] protocol management per primary team Hypertension * Continue antihypertensive regimen: Metoprolol 25 mg twice daily. DVT prophylaxis * Management per primary team Echocardiogram is pending. Continue to monitor on telemetry. Will follow This patient was seen in conjunction with Dr Campo who agrees with this assessment and plan of care - Patient Problems (1) Alcohol withdrawal Current Visit: Yes Status: Acute (2) DVT prophylaxis Current Visit: Yes Status: Acute (3) Facial injury Current Visit: Yes Status: Acute (4) Frequent falls Current Visit: Yes Status: Chronic (5) Hypertension Current Visit: Yes Status: Chronic (6) PTSD (post-traumatic stress disorder) Current Visit: Yes Status: Chronic (7) Nonsustained paroxysmal supraventricular tachycardia Current Visit: Yes Status: Acute (8) Alcohol dependence Current Visit: Yes Status: Chronic
[2020-08-31] MEDS: METOPROLOL TARTRATE 5 MG/5 ML INJ IV PRN ×3 (21:50→22:40)
[2020-08-31] MEDS ORDERED: ADENOSINE 6 MG/2 ML INJ ONE ×2 (22:23→22:26)
[2020-08-31] MEDS ORDERED: ADENOSINE 6 MG/2 ML INJ IV ONE ×2 (22:39→22:43)
[2020-08-31] MEDS: dilTIAZem/D5W 100 MG/100 ML BAG IV ONE (23:38)
--- NOTE | 2020-08-31 23:40 | Event Note ---
Date: 08/31/20 59-year-old white male on admission for alcohol withdrawal syndrome who has been going into SVT. He was said to have had similar episode earlier in the day and had been placed on metoprolol as needed. Rate has been sustained in the 180s to 200s. Vagal maneuvers, IV metoprolol was given without any significant improvement. Adenosine 6 mg and subsequently 2 doses of 12 mg were given without any improvement. Patient subsequently transferred into the intensive care unit for close monitoring. However upon arrival in the ICU rate went down into low 100s. We will continue to monitor in the intensive care unit and continue on IV metoprolol as needed.
[2020-09-01] MEDS: LORazepam 2 MG/ML VIAL IV PRN ×4 (00:46→15:24)
[2020-09-01] MEDS: IPRATROPIUM/ALBUTEROL SULFATE 3 ML AMPUL.NEB IH SCH ×4 (01:33→20:20)
[2020-09-01 05:54] LABS: Hematocrit 41.4 % (35.5-45.6); Hemoglobin 14.2 gm/dl (11.8-15.2); Mean Corpuscular HGB Conc 34 % (32-34); Mean Corpuscular Volume 100 fl (84-94); Platelet Count 138 K/mm3 (140-440); Red Blood Count 4.16 M/mm3 (3.65-5.03); Red Cell Distribution Width 13.7 % (13.2-15.2)
[2020-09-01 06:17] LABS: Alanine Aminotransferase 93 units/L (7-56); Albumin 3.3 g/dL (3.9-5); Bilirubin,Direct 0.9 mg/dL (0-0.2); Blood Urea Nitrogen 8 mg/dL (9-20); Calcium 8.9 mg/dL (8.4-10.2); Hemolysis Index 34
[2020-09-01 06:20] LABS: BUN/Creatinine Ratio 13
--- NOTE | 2020-09-01 08:19 | Progress Note ---
Assessment and Plan Assessment and plan: --Intermittent SVT ; Current Visit: Yes Status: Acute Patient had new episodes of SVT last night requiring IV metoprolol, IV at nursing multiple doses Project Engineer transfer the patient to ICU for close monitoring This morning patient is in sinus, heart rate ranging in the 80s to 90s Continue beta-blockers, monitor electrolytes Cardiology following --Hypokalemia; resolved Current Visit: Yes Status: Acute . potassium levels within normal limits today Closely monitor electrolytes --Hypophosphatemia; resolved Current Visit: Yes Status: Acute. phosphate levels normal today Monitor electrolytes --Alcohol withdrawal symptoms; Current Visit: Yes Status: Acute Continue CIWA , with Ativan and Librium per protocol --Chronic alcohol use; Current Visit: Yes Status: Chronic Strongly advised the patient to quit alcohol intake Advised to seek alcohol rehabilitation, alcohol Anonymous Patient verbalized understanding --Alcohol liver disease; Current Visit: Yes Status: Acute Secondary to chronic alcohol use Advised to quit alcohol intake LFTs trending down, GI evaluated Hepatitis panel negative -- Alcohol intoxication/present on admission Current Visit: Yes Status: Acute Thiamine folic acid multivitamins Supportive care, advised to quit Currently patient has alcohol withdrawals on CIWA protocol --Status post fall Current Visit: Yes Status: Acute Fall precautions, physical therapy and Occupational Therapy -- Facial injury Current Visit: Yes Status: Acute Face CT and cervical spine and head CT shows no acute injury. Fall precautions, PT OT when patient is stable -- Hypertension Current Visit: Yes Status: Acute Hydralazine 10 mg IV every 6 hours as needed. We will monitor the blood pressure closely -- chronic alcohol abuse Current Visit: Yes Status: Acute Strongly advised to quit alcohol intake Also advised to seek alcohol rehabilitation And alcohol Anonymous when medically stable --PTSD (post-traumatic stress disorder) Current Visit: Yes Status: Acute We will monitor the patient closely. Outpatient follow-up with psych -- DVT prophylaxis; Current Visit: Yes Status: Acute SCD for DVT prophylaxis because of facial trauma. Pepcid 20 mg p.o. twice daily for GI prophylaxis. 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 nurse Baby Doctor recommendations noted and appreciated Brief history and daily hospital course: 08/30/2020; patient is on CIWA protocols Had intermittent SVTs resolved with beta-blockers Cardiology consulted 08/31/2020; no new episodes of SVT Continues to be on CIWA protocols LFTs trending down, GI following Recommend PT OT when medically stable Hypokalemia, hypophosphatemia, replace per protocols 09/01/2020; patient had new episodes of SVT last night Requiring adenosine, metoprolol, transferred to ICU This morning patient is in sinus heart rate in 80s and 90s History Interval history: I have seen and examined the patient at the bedside in ICU this morning Last night events reviewed patient had episodes of SVT requiring IV metoprolol, and adenosine 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 transferred the patient to ICU for close monitoring This morning patient's heart rate is in 80s and 90s in sinus rhythm Patient is on CIKS protocol for alcohol withdrawal symptoms, Patient feels better no new complaints Vital signs reviewed Hospitalist Physical - Constitutional Vitals: Temp Pulse Resp BP Pulse Ox 98.1 F 89 38 H 126/87 97 09/01/20 07:31 09/01/20 06:30 09/01/20 06:30 09/01/20 06:30 09/01/20 06:30 General appearance: Present: no acute distress, well-nourished, other (Mild tremulousness) - EENT Eyes: Present: PERRL, EOM intact - Neck Neck: Present: supple, normal ROM - Respiratory Respiratory effort: normal Respiratory: bilateral: diminished, negative: rales, rhonchi, wheezing - Cardiovascular Rhythm: regular Heart Sounds: Present: S1 & S2 - Extremities Extremities: no ischemia, No edema - Abdominal General gastrointestinal: soft, non-tender, non-distended, normal bowel sounds - Integumentary Integumentary: Present: clear, warm - Psychiatric Psychiatric: appropriate mood/affect, cooperative - Neurologic Neurologic: moves all extremities HEART Score - HEART Score Troponin: Troponin T < 0.010 ng/mL (0.00-0.029) 09/01/20 04:47 Results - Labs CBC & Chem 7: 09/01/20 04:47 09/01/20 04:47 Labs: Laboratory Last Values WBC 4.2 K/mm3 (4.5-11.0) L 09/01/20 04:47 RBC 4.16 M/mm3 (3.65-5.03) 09/01/20 04:47 Hgb 14.2 gm/dl (11.8-15.2) 09/01/20 04:47 Hct 41.4 % (35.5-45.6) 09/01/20 04:47 MCV 100 fl (84-94) H 09/01/20 04:47 MCH 34 pg (28-32) H 09/01/20 04:47 MCHC 34 % (32-34) 09/01/20 04:47 RDW 13.7 % (13.2-15.2) 09/01/20 04:47 Plt Count 138 K/mm3 (140-440) L 09/01/20 04:47 Lymph % (Auto) 18.4 % (13.4-35.0) 08/31/20 03:37 [place] % (Auto) 13.3 % (0.0-7.3) H 08/31/20 03:37 Eos % (Auto) 0.4 % (0.0-4.3) 08/31/20 03:37 Baso % (Auto) 1.2 % (0.0-1.8) 08/31/20 03:37 Lymph # (Auto) 0.8 K/mm3 (1.2-5.4) L 08/31/20 03:37 [place] # (Auto) 0.6 K/mm3 (0.0-0.8) 08/31/20 03:37 Eos # (Auto) 0.0 K/mm3 (0.0-0.4) 08/31/20 03:37 Baso # (Auto) 0.1 K/mm3 (0.0-0.1) 08/31/20 03:37 Add Manual Diff Complete 08/29/20 22:18 Total Counted 100 08/29/20 22:18 Seg Neutrophils % 66.7 % (40.0-70.0) 08/31/20 03:37 Seg Neuts % (Manual) 84.0 % (40.0-70.0) H 08/29/20 22:18 Lymphocytes % (Manual) 11.0 % (13.4-35.0) L 08/29/20 22:18 Monocytes % (Manual) 4.0 % (0.0-7.3) 08/29/20 22:18 Basophils % (Manual) 1.0 % (0.0-1.8) 08/29/20 22:18 Nucleated RBC % Not Reportable 08/29/20 22:18 Seg Neutrophils # 3.0 K/mm3 (1.8-7.7) 08/31/20 03:37 Seg Neutrophils # Man 4.9 K/mm3 (1.8-7.7) 08/29/20 22:18 Band Neutrophils # 0.0 K/mm3 08/29/20 22:18 Lymphocytes # (Manual) 0.6 K/mm3 (1.2-5.4) L 08/29/20 22:18 Abs React Lymphs (Man) 0.0 K/mm3 08/29/20 22:18 Monocytes # (Manual) 0.2 K/mm3 (0.0-0.8) 08/29/20 22:18 Eosinophils # (Manual) 0.0 K/mm3 (0.0-0.4) 08/29/20 22:18 Basophils # (Manual) 0.1 K/mm3 (0.0-0.1) 08/29/20 22:18 Metamyelocytes # 0.0 K/mm3 08/29/20 22:18 Myelocytes # 0.0 K/mm3 08/29/20 22:18 Promyelocytes # 0.0 K/mm3 08/29/20 22:18 Blast Cells # 0.0 K/mm3 08/29/20 22:18 WBC Morphology Not Reportable 08/29/20 22:18 Hypersegmented Neuts Not Reportable 08/29/20 22:18 Hyposegmented Neuts Not Reportable 08/29/20 22:18 Hypogranular Neuts Not Reportable 08/29/20 22:18 Smudge Cells Not Reportable 08/29/20 22:18 Toxic Granulation Not Reportable 08/29/20 22:18 Toxic Vacuolation Not Reportable 08/29/20 22:18 Dohle Bodies Not Reportable 08/29/20 22:18 Pelger-Huet Anomaly Not Reportable 08/29/20 22:18 César Rods Not Reportable 08/29/20 22:18 Platelet Estimate Consistent w auto 08/29/20 22:18 Clumped Platelets Not Reportable 08/29/20 22:18 Plt Clumps, EDTA Not Reportable 08/29/20 22:18 Large Platelets Not Reportable 08/29/20 22:18 Giant Platelets Not Reportable 08/29/20 22:18 Platelet Satelliting Not Reportable 08/29/20 22:18 Plt Morphology Comment Not Reportable 08/29/20 22:18 RBC Morphology Not Reportable 08/29/20 22:18 Dimorphic RBCs Not Reportable 08/29/20 22:18 Polychromasia Not Reportable 08/29/20 22:18 Hypochromasia Not Reportable 08/29/20 22:18 Poikilocytosis Not Reportable 08/29/20 22:18 Anisocytosis 1+ 08/29/20 22:18 Microcytosis Not Reportable 08/29/20 22:18 Macrocytosis Not Reportable 08/29/20 22:18 Spherocytes Not Reportable 08/29/20 22:18 Pappenheimer Bodies Not Reportable 08/29/20 22:18 Sickle Cells Not Reportable 08/29/20 22:18 Target Cells Not Reportable 08/29/20 22:18 Tear Drop Cells Not Reportable 08/29/20 22:18 Ovalocytes Not Reportable 08/29/20 22:18 Helmet Cells Not Reportable 08/29/20 22:18 [place] Bodies Not Reportable 08/29/20 22:18 [place] Rings Not Reportable 08/29/20 22:18 [place] Cells Not Reportable 08/29/20 22:18 Bite Cells Not Reportable 08/29/20 22:18 Crenated Cell Not Reportable 08/29/20 22:18 Elliptocytes Not Reportable 08/29/20 22:18 Acanthocytes (Spur) Not Reportable 08/29/20 22:18 Rouleaux Not Reportable 08/29/20 22:18 Hemoglobin C Crystals Not Reportable 08/29/20 22:18 Schistocytes Not Reportable 08/29/20 22:18 Malaria parasites Not Reportable 08/29/20 22:18 Abe Bodies Not Reportable 08/29/20 22:18 Hem Pathologist Commnt No 08/29/20 22:18 PT 14.0 Sec. (12.2-14.9) 08/29/20 22:18 INR 1.03 (0.87-1.13) 08/29/20 22:18 APTT 31.1 Sec. (24.2-36.6) 08/29/20 22:18 Sodium 142 mmol/L (137-145) 09/01/20 04:47 Potassium 3.6 mmol/L (3.6-5.0) 09/01/20 04:47 Chloride 101.8 mmol/L (98-107) 09/01/20 04:47 Carbon Dioxide 22 mmol/L (22-30) 09/01/20 04:47 Anion Gap 22 mmol/L 09/01/20 04:47 BUN 8 mg/dL (9-20) L 09/01/20 04:47 Creatinine 0.6 mg/dL (0.8-1.3) L 09/01/20 04:47 Estimated GFR > 60 ml/min 09/01/20 04:47 BUN/Creatinine Ratio 13 % 09/01/20 04:47 Glucose 108 mg/dL (75-100) H 09/01/20 04:47 Calcium 8.9 mg/dL (8.4-10.2) 09/01/20 04:47 Phosphorus 2.20 mg/dL (2.5-4.5) L 08/31/20 03:37 Magnesium 1.90 mg/dL (1.7-2.3) 09/01/20 04:47 Total Bilirubin 1.80 mg/dL (0.1-1.2) H 09/01/20 04:47 Direct Bilirubin 0.9 mg/dL (0-0.2) H 09/01/20 04:47 Indirect Bilirubin 0.9 mg/dL 09/01/20 04:47 AST 204 units/L (5-40) H 09/01/20 04:47 ALT 93 units/L (7-56) H 09/01/20 04:47 Alkaline Phosphatase 159 units/L (35-129) H 09/01/20 04:47 Total Creatine Kinase 374 units/L (55-170) H 08/29/20 22:30 Troponin T < 0.010 ng/mL (0.00-0.029) 09/01/20 04:47 Total Protein 6.5 g/dL (6.3-8.2) 09/01/20 04:47 Albumin 3.3 g/dL (3.9-5) L 09/01/20 04:47 Albumin/Globulin Ratio 1.0 % 09/01/20 04:47 Salicylates < 0.3 mg/dL (2.8-20.0) L 08/29/20 22:18 Urine Opiates Screen Presumptive negative 08/29/20 23:45 Urine Methadone Screen Presumptive negative 08/29/20 23:45 Acetaminophen 5.0 ug/mL (10.0-30.0) L 08/29/20 22:18 Ur Barbiturates Screen Presumptive negative 08/29/20 23:45 Ur Phencyclidine Scrn Presumptive negative 08/29/20 23:45 Ur Amphetamines Screen Presumptive negative 08/29/20 23:45 U Benzodiazepines Scrn Presumptive negative 08/29/20 23:45 Urine Cocaine Screen Presumptive negative 08/29/20 23:45 U Marijuana (THC) Screen Presumptive negative 08/29/20 23:45 Drugs of Abuse Note Disclamer 08/29/20 23:45 Plasma/Serum Alcohol 0.43 % (0-0.07) H 08/29/20 22:18 Hepatitis A IgM Ab Non-reactive (NonReactive) 08/30/20 13:37 Hep Bs Antigen Non-reactive (Negative) 08/30/20 13:37 Hepatitis C Antibody Non-reactive (NonReactive) 08/30/20 13:37 [place]/IV: Voiding Method Condom Catheter Active Medications - Current Medications Current Medications: Generic Name Dose Route Start Last Admin Trade Name Freq PRN Reason Stop Dose Admin Acetaminophen 650 mg 08/30/20 00:19 Acetaminophen 325 Mg Tab PO Q4H PRN Pain MILD(1-3)/Fever >100.5/AMOS Albuterol 2.5 mg 08/30/20 00:19 Albuterol 2.5 Mg/3 Ml Nebu IH Q4HRT PRN Shortness Of Breath Albuterol/Ipratropium 1 ampul 08/30/20 02:00 09/01/20 01:33 Ipratropium/Albuterol Sulfate 3 Ml Ampul.Neb IH Not Given Q6HRT LEANNE Chlordiazepoxide HCl 100 mg 08/30/20 17:05 08/31/20 22:47 Chlordiazepoxide 25 Mg Cap PO 100 mg Q1H PRN Administration CIWA-Ar 16-25 Famotidine 20 mg 08/30/20 10:00 08/31/20 23:05 Famotidine 20 Mg Tab PO Not Given BID LEANNE Lorazepam 2 mg 08/29/20 23:15 08/31/20 22:48 Lorazepam 2 Mg/Ml Vial IV 2 mg Q1HR PRN Administration CIWA-Ar 8-15 Lorazepam 4 mg 08/29/20 23:15 09/01/20 00:46 Lorazepam 2 Mg/Ml Vial IV 4 mg Q1HR PRN Administration CIWA-Ar 16-25 Metoprolol Tartrate 5 mg 08/30/20 17:23 08/31/20 22:40 Metoprolol Tartrate 5 Mg/5 Ml Inj IV 5 mg Q4H PRN Administration Tachyarrhythmias Metoprolol Tartrate 25 mg 08/30/20 22:00 08/31/20 22:48 Metoprolol Tartrate 25 Mg Tab PO Not Given BID LEANNE Ondansetron HCl 4 mg 08/30/20 00:19 Ondansetron 4 Mg/2 Ml Inj IV Q8H PRN Nausea And Vomiting Sodium Chloride 10 ml 08/30/20 10:00 08/31/20 23:05 Sodium Chloride 0.9% 10 Ml Flush Syringe IV Not Given BID LEANNE Sodium Chloride 10 ml 08/30/20 00:19 Sodium Chloride 0.9% 10 Ml Flush Syringe IV PRN PRN LINE FLUSH Thiamine HCl 100 mg 08/31/20 10:00 08/31/20 09:04 Thiamine 100 Mg Tab PO 100 mg QDAY LEANNE Administration Vitamin B Complex/Folic Acid 1 each 08/31/20 10:00 08/31/20 09:04 Folbee Plus Cz (Folic Acid/Vit Bcomp&C/Cu/Znox) PO 1 each QDAY LEANNE Administration
[2020-09-01] MEDS: dilTIAZem/D5W 100 MG/100 ML BAG IV ONE (08:41)
[2020-09-01] MEDS: FAMOTIDINE 20 MG TAB PO SCH ×2 (09:51→22:38)
[2020-09-01] MEDS: THIAMINE 100 MG TAB PO SCH (09:51)
[2020-09-01] MEDS: METOPROLOL TARTRATE 25 MG TAB PO SCH (09:51)
--- NOTE | 2020-09-01 10:43 | Progress Note ---
Assessment and Plan Nonsustained SVT secondary to delirium tremens/alcohol withdrawal * Telemetry reviewed currently in sinus tach. Paroxysmal SVT/A. tach rate 210s noted overnight, refractory to 3 rounds of adenosine, vagal maneuvers. * Patient is currently chest pain-free with no cardiac complaints. Twelve-lead ECG shows sinus tach 109 with no acute ischemic changes. Troponin negative x2. AMI ruled out. * Echocardiogram is pending read. Continue to monitor on telemetry. * Optimize rate control: Increase metoprolol to 50 mg twice daily. Alcohol withdrawal secondary to chronic alcohol dependence * Being treated for delirium tremens under [facility] protocol management per primary team DVT prophylaxis * Management per primary team Echocardiogram is pending. Continue to monitor on telemetry. Patient may transfer to IMCU/telemetry from cardiology standpoint. Will follow This patient was seen in conjunction with Dr Campo who agrees with this assess ment and plan of care - Patient Problems (1) Alcohol withdrawal Current Visit: Yes Status: Acute (2) DVT prophylaxis Current Visit: Yes Status: Acute (3) Facial injury Current Visit: Yes Status: Acute (4) Frequent falls Current Visit: Yes Status: Chronic (5) Hypertension Current Visit: Yes Status: Chronic (6) PTSD (post-traumatic stress disorder) Current Visit: Yes Status: Chronic (7) Nonsustained paroxysmal supraventricular tachycardia Current Visit: Yes Status: Acute (8) Alcohol dependence Current Visit: Yes Status: Chronic Subjective Date of service: 09/01/20 Principal diagnosis: Alcohol withdrawal Interval history: Patient resting comfortably in bed. No chest pain or shortness of breath overnight. Telemetry reviewed: Sinus tach 105. Paroxysmal SVT/atrial tach rate 210s noted overnight. Objective Last Vital Signs Temp 98.1 F 09/01/20 07:31 Pulse 104 H 09/01/20 09:51 Resp 38 H 09/01/20 09:00 BP 132/94 09/01/20 09:51 Pulse Ox 99 09/01/20 09:00 - Physical Examination General: No Apparent Distress HEENT: Positive: PERRL, Normocephaly, Mucus Membranes Moist Neck: Positive: neck supple, trachea midline Cardiac: Positive: Regular Rhythm, S1/S2 Lungs: Positive: Normal Exam, Normal Breath Sounds Neuro: Positive: Grossly Intact Abdomen: Positive: Unremarkable, Soft Skin: Positive: Bruising. Negative: Rash, Wound Musculoskeletal: Normal Range of Motion Extremities: Present: upper extr. pulses, lower extr. pulses. Absent: edema - Labs and Meds Cardiac Enzymes 09/01/20 Range/Units 04:47 AST 204 H (5-40) units/L CBC 09/01/20 Range/Units 04:47 WBC 4.2 L (4.5-11.0) K/mm3 RBC 4.16 (3.65-5.03) M/mm3 Hgb 14.2 (11.8-15.2) gm/dl Hct 41.4 (35.5-45.6) % Plt Count 138 L (140-440) K/mm3 Comprehensive Metabolic Panel 09/01/20 Range/Units 04:47 Sodium 142 (137-145) mmol/L Potassium 3.6 (3.6-5.0) mmol/L Chloride 101.8 (98-107) mmol/L Carbon Dioxide 22 (22-30) mmol/L BUN 8 L (9-20) mg/dL Creatinine 0.6 L (0.8-1.3) mg/dL Glucose 108 H (75-100) mg/dL Calcium 8.9 (8.4-10.2) mg/dL Direct Bilirubin 0.9 H (0-0.2) mg/dL Indirect Bilirubin 0.9 mg/dL AST 204 H (5-40) units/L ALT 93 H (7-56) units/L Alkaline Phosphatase 159 H (35-129) units/L Total Protein 6.5 (6.3-8.2) g/dL Albumin 3.3 L (3.9-5) g/dL - Imaging and Cardiology EKG: report reviewed, image reviewed Echo: pending - Telemetry EKG Rhythm: Sinus Tachycardia - EKG Sinus rhythms and dysrhythmias: sinus tachycardia
[2020-09-01] MEDS ORDERED: METOPROLOL TARTRATE 25 MG TAB PO ONE (12:00)
[2020-09-01] MEDS: FOLBEE PLUS CZ (FOLIC ACID/VIT BCOMP&C/CU/ZNOX) PO SCH (12:04)
[2020-09-01] MEDS: METOPROLOL TARTRATE 50 MG TAB PO SCH (22:39)
[2020-09-02] MEDS: THIAMINE 100 MG TAB PO SCH (09:38)
[2020-09-02] MEDS: LORazepam 2 MG/ML VIAL IV PRN ×2 (09:38→22:16)
[2020-09-02] MEDS: FAMOTIDINE 20 MG TAB PO SCH ×2 (09:38→22:16)
[2020-09-02] MEDS: METOPROLOL TARTRATE 50 MG TAB PO SCH ×2 (09:38→22:16)
[2020-09-02] MEDS: FOLBEE PLUS CZ (FOLIC ACID/VIT BCOMP&C/CU/ZNOX) PO SCH (10:12)
[2020-09-02 11:09] LABS: Blood Urea Nitrogen 12 mg/dL (9-20); Calcium 9.5 mg/dL (8.4-10.2); Hemolysis Index 4
[2020-09-02 11:10] LABS: BUN/Creatinine Ratio 20
--- NOTE | 2020-09-02 15:55 | Progress Note ---
Assessment and Plan Nonsustained SVT secondary to delirium tremens/alcohol withdrawal * Telemetry reviewed: Sinus tach 102. No events * Patient is currently chest pain-free with no cardiac complaints. Twelve-lead ECG shows sinus tach 109 with no acute ischemic changes. Troponin negative x2. AMI ruled out. * Echocardiogram 08/31/2020: LVEF is 50 to 55%. LV normal size, LV SF normal. Mild diastolic dysfunction. RV SF is normal. Mild MR. RVSP is 36 mmHg. * Continue current rate control /antihypertensive regimen: Metoprolol 50 mg twice daily Alcohol withdrawal secondary to chronic alcohol dependence * Being treated for delirium tremens under [facility] protocol management per primary team DVT prophylaxis * Management per primary team Continue to monitor on telemetry. Will follow This patient was seen in conjunction with Dr Campo who agrees with this assessment and plan of care - Patient Problems (1) Alcohol withdrawal Current Visit: Yes Status: Acute (2) DVT prophylaxis Current Visit: Yes Status: Acute (3) Facial injury Current Visit: Yes Status: Acute (4) Frequent falls Current Visit: Yes Status: Chronic (5) Hypertension Current Visit: Yes Status: Chronic (6) PTSD (post-traumatic stress disorder) Current Visit: Yes Status: Chronic (7) Nonsustained paroxysmal supraventricular tachycardia Current Visit: Yes Status: Acute (8) Alcohol dependence Current Visit: Yes Status: Chronic Subjective Date of service: 09/02/20 Principal diagnosis: Alcohol withdrawal Interval history: Patient is resting in bed, somnolent secondary to Ativan administration. No chest pain or shortness of breath overnight. Telemetry reviewed: Sinus tach 102. No events Objective Last Vital Signs Temp 98.5 F 09/02/20 09:26 Pulse 91 H 09/02/20 09:26 Resp 18 09/02/20 09:26 BP 157/107 09/02/20 09:26 Pulse Ox 97 09/02/20 10:00 - Physical Examination General: No Apparent Distress HEENT: Positive: PERRL, Normocephaly, Mucus Membranes Moist Neck: Positive: neck supple, trachea midline Cardiac: Positive: Reg Rate and Rhythm, S1/S2 Lungs: Positive: Normal Exam, Normal Breath Sounds Neuro: Positive: Grossly Intact Abdomen: Positive: Unremarkable, Soft Skin: Positive: Bruising. Negative: Rash, Wound Musculoskeletal: Normal Range of Motion Extremities: Present: upper extr. pulses, lower extr. pulses. Absent: edema - Labs and Meds Comprehensive Metabolic Panel 09/02/20 Range/Units 09:49 Sodium 142 (137-145) mmol/L Potassium 3.7 (3.6-5.0) mmol/L Chloride 102.3 (98-107) mmol/L Carbon Dioxide 20 L (22-30) mmol/L BUN 12 (9-20) mg/dL Creatinine 0.6 L (0.8-1.3) mg/dL Glucose 76 (75-100) mg/dL Calcium 9.5 (8.4-10.2) mg/dL - Imaging and Cardiology EKG: report reviewed, image reviewed Echo: report reviewed (Echocardiogram 08/31/2020: LVEF is 50 to 55%. LV normal size, LV SF normal. Mild diastolic dysfunction. RV SF is normal. Mild MR. RVSP is 36 mmHg.) - EKG Sinus rhythms and dysrhythmias: sinus tachycardia
--- NOTE | 2020-09-02 17:21 | Progress Note ---
Assessment and Plan Assessment and plan: --Intermittent SVT ; Current Visit: Yes Status: Acute Patient had new episodes of SVT last night requiring IV metoprolol, IV at nursing multiple doses Supervisor Speech transfer the patient to ICU for close monitoring This morning patient is in sinus, heart rate ranging in the 80s to 90s Continue beta-blockers, monitor electrolytes Cardiology following --Hypokalemia; resolved Current Visit: Yes Status: Acute . potassium levels within normal limits today Closely monitor electrolytes --Hypophosphatemia; resolved Current Visit: Yes Status: Acute. phosphate levels normal today Monitor electrolytes --Alcohol withdrawal symptoms; Current Visit: Yes Status: Acute Continue CIWA , with Ativan and Librium per protocol --Chronic alcohol use; Current Visit: Yes Status: Chronic Strongly advised the patient to quit alcohol intake Advised to seek alcohol rehabilitation, alcohol Anonymous Patient verbalized understanding --Alcohol liver disease; Current Visit: Yes Status: Acute Secondary to chronic alcohol use Advised to quit alcohol intake LFTs trending down, GI evaluated Hepatitis panel negative -- Alcohol intoxication/present on admission Current Visit: Yes Status: Acute Thiamine folic acid multivitamins Supportive care, advised to quit Currently patient has alcohol withdrawals on CIWA protocol --Status post fall Current Visit: Yes Status: Acute Fall precautions, physical therapy and Occupational Therapy -- Facial injury Current Visit: Yes Status: Acute Face CT and cervical spine and head CT shows no acute injury. Fall precautions, PT OT when patient is stable -- Hypertension Current Visit: Yes Status: Acute Hydralazine 10 mg IV every 6 hours as needed. We will monitor the blood pressure closely -- chronic alcohol abuse Current Visit: Yes Status: Acute Strongly advised to quit alcohol intake Also advised to seek alcohol rehabilitation And alcohol Anonymous when medically stable --PTSD (post-traumatic stress disorder) Current Visit: Yes Status: Acute We will monitor the patient closely. Outpatient follow-up with psych -- DVT prophylaxis; Current Visit: Yes Status: Acute SCD for DVT prophylaxis because of facial trauma. Pepcid 20 mg p.o. twice daily for GI prophylaxis. 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 nurse Marine Cargo Surveyor recommendations noted and appreciated Brief history and daily hospital course: 08/30/2020; patient is on CIWA protocols Had intermittent SVTs resolved with beta-blockers Cardiology consulted 08/31/2020; no new episodes of SVT Continues to be on CINC protocols LFTs trending down, GI following Recommend PT OT when medically stable Hypokalemia, hypophosphatemia, replace per protocols 09/01/2020; patient had new episodes of SVT last night Requiring adenosine, metoprolol, transferred to ICU This morning patient is in sinus heart rate in 80s and 90s 09/02/2020; patient remains confused agitated at times, continue CINC protocol History Interval history: I have seen and examined the patient at the bedside Patient's chart and medications reviewed No new events reported by nursing staff Vital signs noted Patient is lethargic due to Ativan due to [facility] Hospitalist Physical - Constitutional Vitals: Temp Pulse Resp BP Pulse Ox 98.5 F 91 H 18 157/107 97 09/02/20 09:26 09/02/20 16:23 09/02/20 09:26 09/02/20 09:26 09/02/20 10:00 General appearance: Present: no acute distress, well-nourished, other (Mild tremulousness) - EENT Eyes: Present: PERRL, EOM intact - Neck Neck: Present: supple, normal ROM - Respiratory Respiratory effort: normal Respiratory: bilateral: diminished, negative: rales, rhonchi, wheezing - Cardiovascular Rhythm: regular Heart Sounds: Present: S1 & S2 - Extremities Extremities: no ischemia, No edema - Abdominal General gastrointestinal: soft, non-tender, non-distended, normal bowel sounds - Integumentary Integumentary: Present: clear, warm - Psychiatric Psychiatric: appropriate mood/affect, cooperative - Neurologic Neurologic: CNII-XII intact, moves all extremities HEART Score - HEART Score Troponin: Troponin T < 0.010 ng/mL (0.00-0.029) 09/01/20 04:47 Results - Labs CBC & Chem 7: 09/01/20 04:47 09/03/20 05:13 Labs: Laboratory Last Values WBC 4.2 K/mm3 (4.5-11.0) L 09/01/20 04:47 RBC 4.16 M/mm3 (3.65-5.03) 09/01/20 04:47 Hgb 14.2 gm/dl (11.8-15.2) 09/01/20 04:47 Hct 41.4 % (35.5-45.6) 09/01/20 04:47 MCV 100 fl (84-94) H 09/01/20 04:47 MCH 34 pg (28-32) H 09/01/20 04:47 MCHC 34 % (32-34) 09/01/20 04:47 RDW 13.7 % (13.2-15.2) 09/01/20 04:47 Plt Count 138 K/mm3 (140-440) L 09/01/20 04:47 Lymph % (Auto) 18.4 % (13.4-35.0) 08/31/20 03:37 [place] % (Auto) 13.3 % (0.0-7.3) H 08/31/20 03:37 Eos % (Auto) 0.4 % (0.0-4.3) 08/31/20 03:37 Baso % (Auto) 1.2 % (0.0-1.8) 08/31/20 03:37 Lymph # (Auto) 0.8 K/mm3 (1.2-5.4) L 08/31/20 03:37 [place] # (Auto) 0.6 K/mm3 (0.0-0.8) 08/31/20 03:37 Eos # (Auto) 0.0 K/mm3 (0.0-0.4) 08/31/20 03:37 Baso # (Auto) 0.1 K/mm3 (0.0-0.1) 08/31/20 03:37 Add Manual Diff Complete 08/29/20 22:18 Total Counted 100 08/29/20 22:18 Seg Neutrophils % 66.7 % (40.0-70.0) 08/31/20 03:37 Seg Neuts % (Manual) 84.0 % (40.0-70.0) H 08/29/20 22:18 Lymphocytes % (Manual) 11.0 % (13.4-35.0) L 08/29/20 22:18 Monocytes % (Manual) 4.0 % (0.0-7.3) 08/29/20 22:18 Basophils % (Manual) 1.0 % (0.0-1.8) 08/29/20 22:18 Nucleated RBC % Not Reportable 08/29/20 22:18 Seg Neutrophils # 3.0 K/mm3 (1.8-7.7) 08/31/20 03:37 Seg Neutrophils # Man 4.9 K/mm3 (1.8-7.7) 08/29/20 22:18 Band Neutrophils # 0.0 K/mm3 08/29/20 22:18 Lymphocytes # (Manual) 0.6 K/mm3 (1.2-5.4) L 08/29/20 22:18 Abs React Lymphs (Man) 0.0 K/mm3 08/29/20 22:18 Monocytes # (Manual) 0.2 K/mm3 (0.0-0.8) 08/29/20 22:18 Eosinophils # (Manual) 0.0 K/mm3 (0.0-0.4) 08/29/20 22:18 Basophils # (Manual) 0.1 K/mm3 (0.0-0.1) 08/29/20 22:18 Metamyelocytes # 0.0 K/mm3 08/29/20 22:18 Myelocytes # 0.0 K/mm3 08/29/20 22:18 Promyelocytes # 0.0 K/mm3 08/29/20 22:18 Blast Cells # 0.0 K/mm3 08/29/20 22:18 WBC Morphology Not Reportable 08/29/20 22:18 Hypersegmented Neuts Not Reportable 08/29/20 22:18 Hyposegmented Neuts Not Reportable 08/29/20 22:18 Hypogranular Neuts Not Reportable 08/29/20 22:18 Smudge Cells Not Reportable 08/29/20 22:18 Toxic Granulation Not Reportable 08/29/20 22:18 Toxic Vacuolation Not Reportable 08/29/20 22:18 Dohle Bodies Not Reportable 08/29/20 22:18 Pelger-Huet Anomaly Not Reportable 08/29/20 22:18 César Rods Not Reportable 08/29/20 22:18 Platelet Estimate Consistent w auto 08/29/20 22:18 Clumped Platelets Not Reportable 08/29/20 22:18 Plt Clumps, EDTA Not Reportable 08/29/20 22:18 Large Platelets Not Reportable 08/29/20 22:18 Giant Platelets Not Reportable 08/29/20 22:18 Platelet Satelliting Not Reportable 08/29/20 22:18 Plt Morphology Comment Not Reportable 08/29/20 22:18 RBC Morphology Not Reportable 08/29/20 22:18 Dimorphic RBCs Not Reportable 08/29/20 22:18 Polychromasia Not Reportable 08/29/20 22:18 Hypochromasia Not Reportable 08/29/20 22:18 Poikilocytosis Not Reportable 08/29/20 22:18 Anisocytosis 1+ 08/29/20 22:18 Microcytosis Not Reportable 08/29/20 22:18 Macrocytosis Not Reportable 08/29/20 22:18 Spherocytes Not Reportable 08/29/20 22:18 Pappenheimer Bodies Not Reportable 08/29/20 22:18 Sickle Cells Not Reportable 08/29/20 22:18 Target Cells Not Reportable 08/29/20 22:18 Tear Drop Cells Not Reportable 08/29/20 22:18 Ovalocytes Not Reportable 08/29/20 22:18 Helmet Cells Not Reportable 08/29/20 22:18 [place] Bodies Not Reportable 08/29/20 22:18 [place] Rings Not Reportable 08/29/20 22:18 [place] Cells Not Reportable 08/29/20 22:18 Bite Cells Not Reportable 08/29/20 22:18 Crenated Cell Not Reportable 08/29/20 22:18 Elliptocytes Not Reportable 08/29/20 22:18 Acanthocytes (Spur) Not Reportable 08/29/20 22:18 Rouleaux Not Reportable 08/29/20 22:18 Hemoglobin C Crystals Not Reportable 08/29/20 22:18 Schistocytes Not Reportable 08/29/20 22:18 Malaria parasites Not Reportable 08/29/20 22:18 Abe Bodies Not Reportable 08/29/20 22:18 Hem Pathologist Commnt No 08/29/20 22:18 PT 14.0 Sec. (12.2-14.9) 08/29/20 22:18 INR 1.03 (0.87-1.13) 08/29/20 22:18 APTT 31.1 Sec. (24.2-36.6) 08/29/20 22:18 Sodium 142 mmol/L (137-145) 09/02/20 09:49 Potassium 3.7 mmol/L (3.6-5.0) 09/02/20 09:49 Chloride 102.3 mmol/L (98-107) 09/02/20 09:49 Carbon Dioxide 20 mmol/L (22-30) L 09/02/20 09:49 Anion Gap 23 mmol/L 09/02/20 09:49 BUN 12 mg/dL (9-20) 09/02/20 09:49 Creatinine 0.6 mg/dL (0.8-1.3) L 09/02/20 09:49 Estimated GFR > 60 ml/min 09/02/20 09:49 BUN/Creatinine Ratio 20 % 09/02/20 09:49 Glucose 76 mg/dL (75-100) 09/02/20 09:49 Calcium 9.5 mg/dL (8.4-10.2) 09/02/20 09:49 Phosphorus 2.20 mg/dL (2.5-4.5) L 08/31/20 03:37 Magnesium 1.90 mg/dL (1.7-2.3) 09/01/20 04:47 Total Bilirubin 1.80 mg/dL (0.1-1.2) H 09/01/20 04:47 Direct Bilirubin 0.9 mg/dL (0-0.2) H 09/01/20 04:47 Indirect Bilirubin 0.9 mg/dL 09/01/20 04:47 AST 204 units/L (5-40) H 09/01/20 04:47 ALT 93 units/L (7-56) H 09/01/20 04:47 Alkaline Phosphatase 159 units/L (35-129) H 09/01/20 04:47 Total Creatine Kinase 374 units/L (55-170) H 08/29/20 22:30 Troponin T < 0.010 ng/mL (0.00-0.029) 09/01/20 04:47 Total Protein 6.5 g/dL (6.3-8.2) 09/01/20 04:47 Albumin 3.3 g/dL (3.9-5) L 09/01/20 04:47 Albumin/Globulin Ratio 1.0 % 09/01/20 04:47 Salicylates < 0.3 mg/dL (2.8-20.0) L 08/29/20 22:18 Urine Opiates Screen Presumptive negative 08/29/20 23:45 Urine Methadone Screen Presumptive negative 08/29/20 23:45 Acetaminophen 5.0 ug/mL (10.0-30.0) L 08/29/20 22:18 Ur Barbiturates Screen Presumptive negative 08/29/20 23:45 Ur Phencyclidine Scrn Presumptive negative 08/29/20 23:45 Ur Amphetamines Screen Presumptive negative 08/29/20 23:45 U Benzodiazepines Scrn Presumptive negative 08/29/20 23:45 Urine Cocaine Screen Presumptive negative 08/29/20 23:45 U Marijuana (THC) Screen Presumptive negative 08/29/20 23:45 Drugs of Abuse Note Disclamer 08/29/20 23:45 Plasma/Serum Alcohol 0.43 % (0-0.07) H 08/29/20 22:18 Hepatitis A IgM Ab Non-reactive (NonReactive) 08/30/20 13:37 Hep Bs Antigen Non-reactive (Negative) 08/30/20 13:37 Hepatitis C Antibody Non-reactive (NonReactive) 08/30/20 13:37 [place]/IV: Voiding Method Condom Catheter Active Medications - Current Medications Current Medications: Generic Name Dose Route Start Last Admin Trade Name Freq PRN Reason Stop Dose Admin Acetaminophen 650 mg 08/30/20 00:19 Acetaminophen 325 Mg Tab PO Q4H PRN Pain MILD(1-3)/Fever >100.5/AMOS Albuterol 2.5 mg 08/30/20 00:19 Albuterol 2.5 Mg/3 Ml Nebu IH Q4HRT PRN Shortness Of Breath Chlordiazepoxide HCl 100 mg 08/30/20 17:05 08/31/20 22:47 Chlordiazepoxide 25 Mg Cap PO 100 mg Q1H PRN Administration CIWA-Ar 16-25 Famotidine 20 mg 08/30/20 10:00 09/02/20 09:38 Famotidine 20 Mg Tab PO 20 mg BID LEANNE Administration Lorazepam 2 mg 08/29/20 23:15 09/02/20 09:38 Lorazepam 2 Mg/Ml Vial IV 2 mg Q1HR PRN Administration CIWA-Ar 8-15 Lorazepam 4 mg 08/29/20 23:15 09/01/20 15:24 Lorazepam 2 Mg/Ml Vial IV 4 mg Q1HR PRN Administration CIWA-Ar 16-25 Metoprolol Tartrate 5 mg 08/30/20 17:23 08/31/20 22:40 Metoprolol Tartrate 5 Mg/5 Ml Inj IV 5 mg Q4H PRN Administration Tachyarrhythmias Metoprolol Tartrate 50 mg 09/01/20 22:00 09/02/20 09:38 Metoprolol Tartrate 50 Mg Tab PO 50 mg BID LEANNE Administration Ondansetron HCl 4 mg 08/30/20 00:19 Ondansetron 4 Mg/2 Ml Inj IV Q8H PRN Nausea And Vomiting Sodium Chloride 10 ml 08/30/20 10:00 09/02/20 09:38 Sodium Chloride 0.9% 10 Ml Flush Syringe IV 10 ml BID LEANNE Administration Sodium Chloride 10 ml 08/30/20 00:19 Sodium Chloride 0.9% 10 Ml Flush Syringe IV PRN PRN LINE FLUSH Thiamine HCl 100 mg 08/31/20 10:00 09/02/20 09:38 Thiamine 100 Mg Tab PO 100 mg QDAY LEANNE Administration Vitamin B Complex/Folic Acid 1 each 08/31/20 10:00 09/01/20 12:04 Folbee Plus Cz (Folic Acid/Vit Bcomp&C/Cu/Znox) PO 1 each QDAY LEANNE Administration
[2020-09-03 06:34] LABS: Alanine Aminotransferase 128 units/L (7-56); Albumin 3.3 g/dL (3.9-5); Blood Urea Nitrogen 16 mg/dL (9-20); Hemolysis Index 22
[2020-09-03 06:36] LABS: BUN/Creatinine Ratio 27
[2020-09-03] MEDS: FOLBEE PLUS CZ (FOLIC ACID/VIT BCOMP&C/CU/ZNOX) PO SCH (09:21)
[2020-09-03] MEDS: METOPROLOL TARTRATE 50 MG TAB PO SCH ×2 (09:21→23:26)
[2020-09-03] MEDS: FAMOTIDINE 20 MG TAB PO SCH ×2 (09:21→23:27)
[2020-09-03] MEDS: THIAMINE 100 MG TAB PO SCH (09:21)
--- NOTE | 2020-09-03 12:06 | Electrocardiograph Report ---
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
--- NOTE | 2020-09-03 12:07 | Electrocardiograph Report ---
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
--- NOTE | 2020-09-03 12:08 | Electrocardiograph Report ---
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
--- NOTE | 2020-09-03 12:39 | Progress Note ---
Assessment and Plan Nonsustained SVT secondary to delirium tremens/alcohol withdrawal * Telemetry reviewed: Sinus 80s. No events * Patient is currently chest pain-free with no cardiac complaints. Twelve-lead ECG shows sinus tach 109 with no acute ischemic changes. Troponin negative x2. AMI ruled out. * Echocardiogram 08/31/2020: LVEF is 50 to 55%. LV normal size, LV SF normal. Mild diastolic dysfunction. RV SF is normal. Mild MR. RVSP is 36 mmHg. * Continue current rate control /antihypertensive regimen: Metoprolol 50 mg twice daily Alcohol withdrawal secondary to chronic alcohol dependence * Being treated for delirium tremens under [facility] protocol management per primary team DVT prophylaxis * Management per primary team Continue to monitor on telemetry. Will follow This patient was seen in conjunction with Dr Campo who agrees with this assessment and plan of care - Patient Problems (1) Alcohol withdrawal Current Visit: Yes Status: Acute (2) DVT prophylaxis Current Visit: Yes Status: Acute (3) Facial injury Current Visit: Yes Status: Acute (4) Frequent falls Current Visit: Yes Status: Chronic (5) Hypertension Current Visit: Yes Status: Chronic (6) PTSD (post-traumatic stress disorder) Current Visit: Yes Status: Chronic (7) Nonsustained paroxysmal supraventricular tachycardia Current Visit: Yes Status: Acute (8) Alcohol dependence Current Visit: Yes Status: Chronic Subjective Date of service: 09/03/20 Principal diagnosis: Alcohol withdrawal Interval history: Patient resting in bed with no complaints Sinus 80s with no events on the monitor Objective Last Vital Signs Temp 98.3 F 09/03/20 08:49 Pulse 87 09/03/20 08:49 Resp 20 09/03/20 08:49 BP 144/95 09/03/20 08:49 Pulse Ox 95 09/03/20 10:00 - Physical Examination General: No Apparent Distress HEENT: Positive: PERRL, Normocephaly, Mucus Membranes Moist Neck: Positive: neck supple, trachea midline Cardiac: Positive: Reg Rate and Rhythm Lungs: Positive: Normal Breath Sounds Neuro: Positive: Grossly Intact Abdomen: Positive: Unremarkable, Soft Skin: Positive: Bruising. Negative: Rash, Wound Musculoskeletal: Normal Range of Motion Extremities: Present: upper extr. pulses, lower extr. pulses. Absent: edema - Labs and Meds Cardiac Enzymes 09/03/20 Range/Units 05:13 AST 237 H (5-40) units/L Comprehensive Metabolic Panel 09/03/20 Range/Units 05:13 Sodium 142 (137-145) mmol/L Potassium 3.8 (3.6-5.0) mmol/L Chloride 103.7 (98-107) mmol/L Carbon Dioxide 17 L (22-30) mmol/L BUN 16 (9-20) mg/dL Creatinine 0.6 L (0.8-1.3) mg/dL Glucose 89 (75-100) mg/dL Calcium 9.0 (8.4-10.2) mg/dL AST 237 H (5-40) units/L ALT 128 H (7-56) units/L Alkaline Phosphatase 205 H (35-129) units/L Total Protein 7.3 (6.3-8.2) g/dL Albumin 3.3 L (3.9-5) g/dL - Imaging and Cardiology EKG: report reviewed, image reviewed Echo: report reviewed (Echocardiogram 08/31/2020: LVEF is 50 to 55%. LV normal size, LV SF normal. Mild diastolic dysfunction. RV SF is normal. Mild MR. RVSP is 36 mmHg.) - Telemetry EKG Rhythm: Sinus Rhythm - EKG Sinus rhythms and dysrhythmias: sinus rhythm
--- NOTE | 2020-09-03 14:49 | Progress Note ---
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 potassium levels within normal limits today Closely monitor electrolytes --Hypophosphatemia; resolved Current Visit: Yes Status: Acute. phosphate levels normal today Monitor electrolytes --Alcohol withdrawal symptoms; Current Visit: Yes Status: Acute Patient is more alert and awake Requiring very little Ativan, DC CIWA Start IV Ativan as needed for agitation PT OT evaluation and recommendations DC planning per case management --Chronic alcohol use; Current Visit: Yes Status: Chronic Strongly advised the patient to quit alcohol intake Advised to seek alcohol rehabilitation, alcohol Anonymous Patient verbalized understanding --Alcohol liver disease; Current Visit: Yes Status: Acute Secondary to chronic alcohol use Advised to quit alcohol intake LFTs trending down, GI evaluated Hepatitis panel negative -- Alcohol intoxication/present on admission Current Visit: Yes Status: Acute Thiamine folic acid multivitamins Supportive care, advised to quit Currently patient has alcohol withdrawals on CIWA protocol --Status post fall Current Visit: Yes Status: Acute Fall precautions, physical therapy and Occupational Therapy -- Facial injury Current Visit: Yes Status: Acute Face CT and cervical spine and head CT shows no acute injury. Fall precautions, PT OT when patient is stable -- Hypertension Current Visit: Yes Status: Acute Hydralazine 10 mg IV every 6 hours as needed. We will monitor the blood pressure closely -- chronic alcohol abuse Current Visit: Yes Status: Acute Strongly advised to quit alcohol intake Also advised to seek alcohol rehabilitation And alcohol Anonymous when medically stable --PTSD (post-traumatic stress disorder) Current Visit: Yes Status: Acute We will monitor the patient closely. Outpatient follow-up with psych -- DVT prophylaxis; Current Visit: Yes Status: Acute SCD for DVT prophylaxis because of facial trauma. Pepcid 20 mg p.o. twice daily for GI prophylaxis. 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 recommendations noted and appreciated Brief history and daily hospital course: 08/30/2020; patient is on CIWA protocols Had intermittent SVTs resolved with beta-blockers Cardiology consulted 08/31/2020; no new episodes of SVT Continues to be on CIWA protocols LFTs trending down, GI following Recommend PT OT when medically stable Hypokalemia, hypophosphatemia, replace per protocols 09/01/2020; patient had new episodes of SVT last night Requiring adenosine, metoprolol, transferred to ICU This morning patient is in sinus heart rate in 80s and 90s 09/02/2020; patient remains confused agitated at times, continue CIWA protocol 09/03/2020; continue CIWA protocol Once patient is more stable will request PT OT Will update family today History Interval history: The patient is more alert and awake, requiring very little Ativan Responding to simple questions appropriately No new complaints or concerns noted Hospitalist Physical - Constitutional Vitals: Temp Pulse Resp BP Pulse Ox 98.3 F 87 20 144/95 95 09/03/20 08:49 09/03/20 08:49 09/03/20 08:49 09/03/20 08:49 09/03/20 10:00 General appearance: Present: no acute distress, well-nourished, other (Mild tremulousness) - EENT Eyes: Present: PERRL, EOM intact - Neck Neck: Present: supple, normal ROM - Respiratory Respiratory effort: normal Respiratory: bilateral: diminished, negative: rales, rhonchi, wheezing - Cardiovascular Rhythm: regular Heart Sounds: Present: S1 & S2 - Extremities Extremities: no ischemia, No edema - Abdominal General gastrointestinal: soft, non-tender, non-distended, normal bowel sounds - Integumentary Integumentary: Present: clear, warm - Psychiatric Psychiatric: appropriate mood/affect, cooperative, other - Neurologic Neurologic: moves all extremities, other (No tremulousness or agitation) HEART Score - HEART Score Troponin: Troponin T < 0.010 ng/mL (0.00-0.029) 09/01/20 04:47 Results - Labs CBC & Chem 7: 09/01/20 04:47 09/03/20 05:13 Labs: Laboratory Last Values WBC 4.2 K/mm3 (4.5-11.0) L 09/01/20 04:47 RBC 4.16 M/mm3 (3.65-5.03) 09/01/20 04:47 Hgb 14.2 gm/dl (11.8-15.2) 09/01/20 04:47 Hct 41.4 % (35.5-45.6) 09/01/20 04:47 MCV 100 fl (84-94) H 09/01/20 04:47 MCH 34 pg (28-32) H 09/01/20 04:47 MCHC 34 % (32-34) 09/01/20 04:47 RDW 13.7 % (13.2-15.2) 09/01/20 04:47 Plt Count 138 K/mm3 (140-440) L 09/01/20 04:47 Lymph % (Auto) 18.4 % (13.4-35.0) 08/31/20 03:37 [place] % (Auto) 13.3 % (0.0-7.3) H 08/31/20 03:37 Eos % (Auto) 0.4 % (0.0-4.3) 08/31/20 03:37 Baso % (Auto) 1.2 % (0.0-1.8) 08/31/20 03:37 Lymph # (Auto) 0.8 K/mm3 (1.2-5.4) L 08/31/20 03:37 [place] # (Auto) 0.6 K/mm3 (0.0-0.8) 08/31/20 03:37 Eos # (Auto) 0.0 K/mm3 (0.0-0.4) 08/31/20 03:37 Baso # (Auto) 0.1 K/mm3 (0.0-0.1) 08/31/20 03:37 Add Manual Diff Complete 08/29/20 22:18 Total Counted 100 08/29/20 22:18 Seg Neutrophils % 66.7 % (40.0-70.0) 08/31/20 03:37 Seg Neuts % (Manual) 84.0 % (40.0-70.0) H 08/29/20 22:18 Lymphocytes % (Manual) 11.0 % (13.4-35.0) L 08/29/20 22:18 Monocytes % (Manual) 4.0 % (0.0-7.3) 08/29/20 22:18 Basophils % (Manual) 1.0 % (0.0-1.8) 08/29/20 22:18 Nucleated RBC % Not Reportable 08/29/20 22:18 Seg Neutrophils # 3.0 K/mm3 (1.8-7.7) 08/31/20 03:37 Seg Neutrophils # Man 4.9 K/mm3 (1.8-7.7) 08/29/20 22:18 Band Neutrophils # 0.0 K/mm3 08/29/20 22:18 Lymphocytes # (Manual) 0.6 K/mm3 (1.2-5.4) L 08/29/20 22:18 Abs React Lymphs (Man) 0.0 K/mm3 08/29/20 22:18 Monocytes # (Manual) 0.2 K/mm3 (0.0-0.8) 08/29/20 22:18 Eosinophils # (Manual) 0.0 K/mm3 (0.0-0.4) 08/29/20 22:18 Basophils # (Manual) 0.1 K/mm3 (0.0-0.1) 08/29/20 22:18 Metamyelocytes # 0.0 K/mm3 08/29/20 22:18 Myelocytes # 0.0 K/mm3 08/29/20 22:18 Promyelocytes # 0.0 K/mm3 08/29/20 22:18 Blast Cells # 0.0 K/mm3 08/29/20 22:18 WBC Morphology Not Reportable 08/29/20 22:18 Hypersegmented Neuts Not Reportable 08/29/20 22:18 Hyposegmented Neuts Not Reportable 08/29/20 22:18 Hypogranular Neuts Not Reportable 08/29/20 22:18 Smudge Cells Not Reportable 08/29/20 22:18 Toxic Granulation Not Reportable 08/29/20 22:18 Toxic Vacuolation Not Reportable 08/29/20 22:18 Dohle Bodies Not Reportable 08/29/20 22:18 Pelger-Huet Anomaly Not Reportable 08/29/20 22:18 César Rods Not Reportable 08/29/20 22:18 Platelet Estimate Consistent w auto 08/29/20 22:18 Clumped Platelets Not Reportable 08/29/20 22:18 Plt Clumps, EDTA Not Reportable 08/29/20 22:18 Large Platelets Not Reportable 08/29/20 22:18 Giant Platelets Not Reportable 08/29/20 22:18 Platelet Satelliting Not Reportable 08/29/20 22:18 Plt Morphology Comment Not Reportable 08/29/20 22:18 RBC Morphology Not Reportable 08/29/20 22:18 Dimorphic RBCs Not Reportable 08/29/20 22:18 Polychromasia Not Reportable 08/29/20 22:18 Hypochromasia Not Reportable 08/29/20 22:18 Poikilocytosis Not Reportable 08/29/20 22:18 Anisocytosis 1+ 08/29/20 22:18 Microcytosis Not Reportable 08/29/20 22:18 Macrocytosis Not Reportable 08/29/20 22:18 Spherocytes Not Reportable 08/29/20 22:18 Pappenheimer Bodies Not Reportable 08/29/20 22:18 Sickle Cells Not Reportable 08/29/20 22:18 Target Cells Not Reportable 08/29/20 22:18 Tear Drop Cells Not Reportable 08/29/20 22:18 Ovalocytes Not Reportable 08/29/20 22:18 Helmet Cells Not Reportable 08/29/20 22:18 [place] Bodies Not Reportable 08/29/20 22:18 [place] Rings Not Reportable 08/29/20 22:18 [place] Cells Not Reportable 08/29/20 22:18 Bite Cells Not Reportable 08/29/20 22:18 Crenated Cell Not Reportable 08/29/20 22:18 Elliptocytes Not Reportable 08/29/20 22:18 Acanthocytes (Spur) Not Reportable 08/29/20 22:18 Rouleaux Not Reportable 08/29/20 22:18 Hemoglobin C Crystals Not Reportable 08/29/20 22:18 Schistocytes Not Reportable 08/29/20 22:18 Malaria parasites Not Reportable 08/29/20 22:18 Abe Bodies Not Reportable 08/29/20 22:18 Hem Pathologist Commnt No 08/29/20 22:18 PT 14.0 Sec. (12.2-14.9) 08/29/20 22:18 INR 1.03 (0.87-1.13) 08/29/20 22:18 APTT 31.1 Sec. (24.2-36.6) 08/29/20 22:18 Sodium 142 mmol/L (137-145) 09/03/20 05:13 Potassium 3.8 mmol/L (3.6-5.0) 09/03/20 05:13 Chloride 103.7 mmol/L (98-107) 09/03/20 05:13 Carbon Dioxide 17 mmol/L (22-30) L 09/03/20 05:13 Anion Gap 25 mmol/L 09/03/20 05:13 BUN 16 mg/dL (9-20) 09/03/20 05:13 Creatinine 0.6 mg/dL (0.8-1.3) L 09/03/20 05:13 Estimated GFR > 60 ml/min 09/03/20 05:13 BUN/Creatinine Ratio 27 % 09/03/20 05:13 Glucose 89 mg/dL (75-100) 09/03/20 05:13 Calcium 9.0 mg/dL (8.4-10.2) 09/03/20 05:13 Phosphorus 4.00 mg/dL (2.5-4.5) 09/03/20 05:13 Magnesium 2.10 mg/dL (1.7-2.3) 09/03/20 05:13 Total Bilirubin 1.70 mg/dL (0.1-1.2) H 09/03/20 05:13 Direct Bilirubin 0.9 mg/dL (0-0.2) H 09/01/20 04:47 Indirect Bilirubin 0.9 mg/dL 09/01/20 04:47 AST 237 units/L (5-40) H 09/03/20 05:13 ALT 128 units/L (7-56) H 09/03/20 05:13 Alkaline Phosphatase 205 units/L (35-129) H 09/03/20 05:13 Total Creatine Kinase 374 units/L (55-170) H 08/29/20 22:30 Troponin T < 0.010 ng/mL (0.00-0.029) 09/01/20 04:47 Total Protein 7.3 g/dL (6.3-8.2) 09/03/20 05:13 Albumin 3.3 g/dL (3.9-5) L 09/03/20 05:13 Albumin/Globulin Ratio 0.8 % 09/03/20 05:13 Salicylates < 0.3 mg/dL (2.8-20.0) L 08/29/20 22:18 Urine Opiates Screen Presumptive negative 08/29/20 23:45 Urine Methadone Screen Presumptive negative 08/29/20 23:45 Acetaminophen 5.0 ug/mL (10.0-30.0) L 08/29/20 22:18 Ur Barbiturates Screen Presumptive negative 08/29/20 23:45 Ur Phencyclidine Scrn Presumptive negative 08/29/20 23:45 Ur Amphetamines Screen Presumptive negative 08/29/20 23:45 U Benzodiazepines Scrn Presumptive negative 08/29/20 23:45 Urine Cocaine Screen Presumptive negative 08/29/20 23:45 U Marijuana (THC) Screen Presumptive negative 08/29/20 23:45 Drugs of Abuse Note Disclamer 08/29/20 23:45 Plasma/Serum Alcohol 0.43 % (0-0.07) H 08/29/20 22:18 Hepatitis A IgM Ab Non-reactive (NonReactive) 08/30/20 13:37 Hep Bs Antigen Non-reactive (Negative) 08/30/20 13:37 Hepatitis C Antibody Non-reactive (NonReactive) 08/30/20 13:37 [place]/IV: Voiding Method Condom Catheter Active Medications - Current Medications Current Medications: Generic Name Dose Route Start Last Admin Trade Name Freq PRN Reason Stop Dose Admin Acetaminophen 650 mg 08/30/20 00:19 Acetaminophen 325 Mg Tab PO Q4H PRN Pain MILD(1-3)/Fever >100.5/AMOS Albuterol 2.5 mg 08/30/20 00:19 Albuterol 2.5 Mg/3 Ml Nebu IH Q4HRT PRN Shortness Of Breath Famotidine 20 mg 08/30/20 10:00 09/03/20 09:21 Famotidine 20 Mg Tab PO 20 mg BID LEANNE Administration Lorazepam 2 mg 09/03/20 10:00 Lorazepam 2 Mg/Ml Vial IV Q4H PRN Agitation Metoprolol Tartrate 5 mg 08/30/20 17:23 08/31/20 22:40 Metoprolol Tartrate 5 Mg/5 Ml Inj IV 5 mg Q4H PRN Administration Tachyarrhythmias Metoprolol Tartrate 50 mg 09/01/20 22:00 09/03/20 09:21 Metoprolol Tartrate 50 Mg Tab PO 50 mg BID LEANNE Administration Ondansetron HCl 4 mg 08/30/20 00:19 Ondansetron 4 Mg/2 Ml Inj IV Q8H PRN Nausea And Vomiting Sodium Chloride 10 ml 08/30/20 10:00 09/03/20 09:21 Sodium Chloride 0.9% 10 Ml Flush Syringe IV 10 ml BID LEANNE Administration Sodium Chloride 10 ml 08/30/20 00:19 Sodium Chloride 0.9% 10 Ml Flush Syringe IV PRN PRN LINE FLUSH Thiamine HCl 100 mg 08/31/20 10:00 09/03/20 09:21 Thiamine 100 Mg Tab PO 100 mg QDAY LEANNE Administration Vitamin B Complex/Folic Acid 1 each 08/31/20 10:00 09/03/20 09:21 Folbee Plus Cz (Folic Acid/Vit Bcomp&C/Cu/Znox) PO 1 each QDAY LEANNE Administration
[2020-09-03] MEDS: LORazepam 2 MG/ML VIAL IV PRN (15:06)
--- NOTE | 2020-09-03 19:56 | Progress Note ---
Assessment and Plan Assessment and plan: --Alcohol withdrawal symptoms; Current Visit: Yes Status: Acute Significantly improved, on Ativan as needed for agitation patient still has minimal tremulousness requiring low-dose of Ativan CIWA protocol held, Continue thiamine folic acid Follow PT OT evaluation and recommendations DC planning per case management when medically stable --Chronic alcohol use; Current Visit: Yes Status: Chronic Strongly advised the patient to quit alcohol intake Advised to seek alcohol rehabilitation, alcohol Anonymous Patient verbalized understanding --Alcohol liver disease; LFTs trending down Current Visit: Yes Status: Acute Secondary to chronic alcohol use Advised to quit alcohol intake LFTs trending down, GI evaluated Hepatitis panel negative --Intermittent SVT ; resolved Current Visit: Yes Status: Acute Patient heart rate 90s sinus Patient no new episodes of SVT Continue beta-blockers, monitor electrolytes Cardiology evaluated and cleared for discharge --Hypokalemia; Current Visit: Yes Status: Acute . Replenished with KCl monitor levels --Hypophosphatemia; resolved Current Visit: Yes Status: Acute. phosphate levels normal today Monitor electrolytes -- Alcohol intoxication/present on admission Current Visit: Yes Status: Acute Thiamine folic acid multivitamins Supportive care, advised to quit Currently patient has alcohol withdrawals on CIWA protocol --Status post fall Current Visit: Yes Status: Acute Fall precautions, physical therapy and Occupational Therapy -- Facial injury Current Visit: Yes Status: Acute Face CT and cervical spine and head CT shows no acute injury. Fall precautions, PT OT when patient is stable -- Hypertension Current Visit: Yes Status: Acute Hydralazine 10 mg IV every 6 hours as needed. We will monitor the blood pressure closely -- chronic alcohol abuse Current Visit: Yes Status: Acute Strongly advised to quit alcohol intake Also advised to seek alcohol rehabilitation And alcohol Anonymous when medically stable --Mild to moderate malnutrition and hypoalbuminemia; Current Visit: Yes Status: Acute Nutrition supplements and supportive care --PTSD (post-traumatic stress disorder) Current Visit: Yes Status: Acute We will monitor the patient closely. Outpatient follow-up with psych -- DVT prophylaxis; Current Visit: Yes Status: Acute SCD for DVT prophylaxis because of facial trauma. Pepcid 20 mg p.o. twice daily for GI prophylaxis. 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 nurse Clock And Watch Assembler recommendations noted and appreciated Brief history and daily hospital course: 59-year-old male patient with significant history of chronic alcohol use was a dmitted through emergency room with alcohol intoxication followed by Alcohol withdrawal symptoms, placed on CIWA protocol, patient had intermittent SVT requiring chemical cardioversion, cardiology evaluated the patient and medications were optimized, cleared for discharge. Patient continues to have mild tremulousness currently on Ativan as needed Follow PT OT evaluation and recommendations, discharge home when medically stable 08/30/2020; patient is on CIWA protocols Had intermittent SVTs resolved with beta-blockers Cardiology consulted 08/31/2020; no new episodes of SVT Continues to be on CIWA protocols LFTs trending down, GI following Recommend PT OT when medically stable Hypokalemia, hypophosphatemia, replace per protocols 09/01/2020; patient had new episodes of SVT last night Requiring adenosine, metoprolol, transferred to ICU This morning patient is in sinus heart rate in 80s and 90s 09/02/2020; patient remains confused agitated at times, continue CIWA protocol 09/03/2020; continue CIWA protocol Once patient is more stable will request PT OT Will update family today 09/04/2020; hypokalemia replenished Follow PT OT evaluation recommendation DC planning per case management when medically stable possible discharge in 1 to 2 days if he comes off Ativan as needed History Interval history: Seen and examined the patient at the bedside Patient's chart and medications reviewed Patient feels slightly better Still has mild tremulousness and agitation Requiring Ativan Follow PT OT evaluation Hospitalist Physical - Constitutional Vitals: Temp Pulse Resp BP Pulse Ox 97.8 F 60 18 120/73 93 09/03/20 19:20 09/03/20 19:20 09/03/20 19:20 09/03/20 19:20 09/03/20 19:20 General appearance: Present: no acute distress, well-nourished, other (Mild tremulousness) - EENT Eyes: Present: PERRL, EOM intact - Neck Neck: Present: supple, normal ROM - Respiratory Respiratory effort: normal Respiratory: bilateral: diminished, negative: rales, rhonchi, wheezing - Cardiovascular Rhythm: regular Heart Sounds: Present: S1 & S2 - Extremities Extremities: no ischemia, pulses intact - Abdominal General gastrointestinal: soft, non-tender, non-distended, normal bowel sounds - Integumentary Integumentary: Present: clear, warm - Psychiatric Psychiatric: cooperative, other (Tremulousness) - Neurologic Neurologic: moves all extremities, other (Responds appropriately) HEART Score - HEART Score Troponin: Troponin T < 0.010 ng/mL (0.00-0.029) 09/01/20 04:47 Results - Labs CBC & Chem 7: 09/01/20 04:47 09/04/20 04:39 Labs: Laboratory Last Values WBC 4.2 K/mm3 (4.5-11.0) L 09/01/20 04:47 RBC 4.16 M/mm3 (3.65-5.03) 09/01/20 04:47 Hgb 14.2 gm/dl (11.8-15.2) 09/01/20 04:47 Hct 41.4 % (35.5-45.6) 09/01/20 04:47 MCV 100 fl (84-94) H 09/01/20 04:47 MCH 34 pg (28-32) H 09/01/20 04:47 MCHC 34 % (32-34) 09/01/20 04:47 RDW 13.7 % (13.2-15.2) 09/01/20 04:47 Plt Count 138 K/mm3 (140-440) L 09/01/20 04:47 Lymph % (Auto) 18.4 % (13.4-35.0) 08/31/20 03:37 Dickinson % (Auto) 13.3 % (0.0-7.3) H 08/31/20 03:37 Eos % (Auto) 0.4 % (0.0-4.3) 08/31/20 03:37 Baso % (Auto) 1.2 % (0.0-1.8) 08/31/20 03:37 Lymph # (Auto) 0.8 K/mm3 (1.2-5.4) L 08/31/20 03:37 Dickinson # (Auto) 0.6 K/mm3 (0.0-0.8) 08/31/20 03:37 Eos # (Auto) 0.0 K/mm3 (0.0-0.4) 08/31/20 03:37 Baso # (Auto) 0.1 K/mm3 (0.0-0.1) 08/31/20 03:37 Add Manual Diff Complete 08/29/20 22:18 Total Counted 100 08/29/20 22:18 Seg Neutrophils % 66.7 % (40.0-70.0) 08/31/20 03:37 Seg Neuts % (Manual) 84.0 % (40.0-70.0) H 08/29/20 22:18 Lymphocytes % (Manual) 11.0 % (13.4-35.0) L 08/29/20 22:18 Monocytes % (Manual) 4.0 % (0.0-7.3) 08/29/20 22:18 Basophils % (Manual) 1.0 % (0.0-1.8) 08/29/20 22:18 Nucleated RBC % Not Reportable 08/29/20 22:18 Seg Neutrophils # 3.0 K/mm3 (1.8-7.7) 08/31/20 03:37 Seg Neutrophils # Man 4.9 K/mm3 (1.8-7.7) 08/29/20 22:18 Band Neutrophils # 0.0 K/mm3 08/29/20 22:18 Lymphocytes # (Manual) 0.6 K/mm3 (1.2-5.4) L 08/29/20 22:18 Abs React Lymphs (Man) 0.0 K/mm3 08/29/20 22:18 Monocytes # (Manual) 0.2 K/mm3 (0.0-0.8) 08/29/20 22:18 Eosinophils # (Manual) 0.0 K/mm3 (0.0-0.4) 08/29/20 22:18 Basophils # (Manual) 0.1 K/mm3 (0.0-0.1) 08/29/20 22:18 Metamyelocytes # 0.0 K/mm3 08/29/20 22:18 Myelocytes # 0.0 K/mm3 08/29/20 22:18 Promyelocytes # 0.0 K/mm3 08/29/20 22:18 Blast Cells # 0.0 K/mm3 08/29/20 22:18 WBC Morphology Not Reportable 08/29/20 22:18 Hypersegmented Neuts Not Reportable 08/29/20 22:18 Hyposegmented Neuts Not Reportable 08/29/20 22:18 Hypogranular Neuts Not Reportable 08/29/20 22:18 Smudge Cells Not Reportable 08/29/20 22:18 Toxic Granulation Not Reportable 08/29/20 22:18 Toxic Vacuolation Not Reportable 08/29/20 22:18 Dohle Bodies Not Reportable 08/29/20 22:18 Pelger-Huet Anomaly Not Reportable 08/29/20 22:18 César Rods Not Reportable 08/29/20 22:18 Platelet Estimate Consistent w auto 08/29/20 22:18 Clumped Platelets Not Reportable 08/29/20 22:18 Plt Clumps, EDTA Not Reportable 08/29/20 22:18 Large Platelets Not Reportable 08/29/20 22:18 Giant Platelets Not Reportable 08/29/20 22:18 Platelet Satelliting Not Reportable 08/29/20 22:18 Plt Morphology Comment Not Reportable 08/29/20 22:18 RBC Morphology Not Reportable 08/29/20 22:18 Dimorphic RBCs Not Reportable 08/29/20 22:18 Polychromasia Not Reportable 08/29/20 22:18 Hypochromasia Not Reportable 08/29/20 22:18 Poikilocytosis Not Reportable 08/29/20 22:18 Anisocytosis 1+ 08/29/20 22:18 Microcytosis Not Reportable 08/29/20 22:18 Macrocytosis Not Reportable 08/29/20 22:18 Spherocytes Not Reportable 08/29/20 22:18 Pappenheimer Bodies Not Reportable 08/29/20 22:18 Sickle Cells Not Reportable 08/29/20 22:18 Target Cells Not Reportable 08/29/20 22:18 Tear Drop Cells Not Reportable 08/29/20 22:18 Ovalocytes Not Reportable 08/29/20 22:18 Helmet Cells Not Reportable 08/29/20 22:18 Singh-[place] Bodies Not Reportable 08/29/20 22:18 [place] Rings Not Reportable 08/29/20 22:18 Sukhjinder Cells Not Reportable 08/29/20 22:18 Bite Cells Not Reportable 08/29/20 22:18 Crenated Cell Not Reportable 08/29/20 22:18 Elliptocytes Not Reportable 08/29/20 22:18 Acanthocytes (Spur) Not Reportable 08/29/20 22:18 Rouleaux Not Reportable 08/29/20 22:18 Hemoglobin C Crystals Not Reportable 08/29/20 22:18 Schistocytes Not Reportable 08/29/20 22:18 Malaria parasites Not Reportable 08/29/20 22:18 Abe Bodies Not Reportable 08/29/20 22:18 Hem Pathologist Commnt No 08/29/20 22:18 PT 14.0 Sec. (12.2-14.9) 08/29/20 22:18 INR 1.03 (0.87-1.13) 08/29/20 22:18 APTT 31.1 Sec. (24.2-36.6) 08/29/20 22:18 Sodium 142 mmol/L (137-145) 09/03/20 05:13 Potassium 3.8 mmol/L (3.6-5.0) 09/03/20 05:13 Chloride 103.7 mmol/L (98-107) 09/03/20 05:13 Carbon Dioxide 17 mmol/L (22-30) L 09/03/20 05:13 Anion Gap 25 mmol/L 09/03/20 05:13 BUN 16 mg/dL (9-20) 09/03/20 05:13 Creatinine 0.6 mg/dL (0.8-1.3) L 09/03/20 05:13 Estimated GFR > 60 ml/min 09/03/20 05:13 BUN/Creatinine Ratio 27 % 09/03/20 05:13 Glucose 89 mg/dL (75-100) 09/03/20 05:13 Calcium 9.0 mg/dL (8.4-10.2) 09/03/20 05:13 Phosphorus 4.00 mg/dL (2.5-4.5) 09/03/20 05:13 Magnesium 2.10 mg/dL (1.7-2.3) 09/03/20 05:13 Total Bilirubin 1.70 mg/dL (0.1-1.2) H 09/03/20 05:13 Direct Bilirubin 0.9 mg/dL (0-0.2) H 09/01/20 04:47 Indirect Bilirubin 0.9 mg/dL 09/01/20 04:47 AST 237 units/L (5-40) H 09/03/20 05:13 ALT 128 units/L (7-56) H 09/03/20 05:13 Alkaline Phosphatase 205 units/L (35-129) H 09/03/20 05:13 Total Creatine Kinase 374 units/L (55-170) H 08/29/20 22:30 Troponin T < 0.010 ng/mL (0.00-0.029) 09/01/20 04:47 Total Protein 7.3 g/dL (6.3-8.2) 09/03/20 05:13 Albumin 3.3 g/dL (3.9-5) L 09/03/20 05:13 Albumin/Globulin Ratio 0.8 % 09/03/20 05:13 Salicylates < 0.3 mg/dL (2.8-20.0) L 08/29/20 22:18 Urine Opiates Screen Presumptive negative 08/29/20 23:45 Urine Methadone Screen Presumptive negative 08/29/20 23:45 Acetaminophen 5.0 ug/mL (10.0-30.0) L 08/29/20 22:18 Ur Barbiturates Screen Presumptive negative 08/29/20 23:45 Ur Phencyclidine Scrn Presumptive negative 08/29/20 23:45 Ur Amphetamines Screen Presumptive negative 08/29/20 23:45 U Benzodiazepines Scrn Presumptive negative 08/29/20 23:45 Urine Cocaine Screen Presumptive negative 08/29/20 23:45 U Marijuana (THC) Screen Presumptive negative 08/29/20 23:45 Drugs of Abuse Note Disclamer 08/29/20 23:45 Plasma/Serum Alcohol 0.43 % (0-0.07) H 08/29/20 22:18 Hepatitis A IgM Ab Non-reactive (NonReactive) 08/30/20 13:37 Hep Bs Antigen Non-reactive (Negative) 08/30/20 13:37 Hepatitis C Antibody Non-reactive (NonReactive) 08/30/20 13:37 [place]/IV: Voiding Method Condom Catheter Active Medications - Current Medications Current Medications: Generic Name Dose Route Start Last Admin Trade Name Freq PRN Reason Stop Dose Admin Acetaminophen 650 mg 08/30/20 00:19 Acetaminophen 325 Mg Tab PO Q4H PRN Pain MILD(1-3)/Fever >100.5/AMOS Albuterol 2.5 mg 08/30/20 00:19 Albuterol 2.5 Mg/3 Ml Nebu IH Q4HRT PRN Shortness Of Breath Famotidine 20 mg 08/30/20 10:00 09/03/20 09:21 Famotidine 20 Mg Tab PO 20 mg BID LEANNE Administration Lorazepam 2 mg 09/03/20 10:00 09/03/20 15:06 Lorazepam 2 Mg/Ml Vial IV 2 mg Q4H PRN Administration Agitation Metoprolol Tartrate 5 mg 08/30/20 17:23 08/31/20 22:40 Metoprolol Tartrate 5 Mg/5 Ml Inj IV 5 mg Q4H PRN Administration Tachyarrhythmias Metoprolol Tartrate 50 mg 09/01/20 22:00 09/03/20 09:21 Metoprolol Tartrate 50 Mg Tab PO 50 mg BID LEANNE Administration Ondansetron HCl 4 mg 08/30/20 00:19 Ondansetron 4 Mg/2 Ml Inj IV Q8H PRN Nausea And Vomiting Sodium Chloride 10 ml 08/30/20 10:00 09/03/20 09:21 Sodium Chloride 0.9% 10 Ml Flush Syringe IV 10 ml BID LEANNE Administration Sodium Chloride 10 ml 08/30/20 00:19 Sodium Chloride 0.9% 10 Ml Flush Syringe IV PRN PRN LINE FLUSH Thiamine HCl 100 mg 08/31/20 10:00 09/03/20 09:21 Thiamine 100 Mg Tab PO 100 mg QDAY LEANNE Administration Vitamin B Complex/Folic Acid 1 each 08/31/20 10:00 09/03/20 09:21 Folbee Plus Cz (Folic Acid/Vit Bcomp&C/Cu/Znox) PO 1 each QDAY LEANNE Administration
[2020-09-04 05:19] LABS: Alanine Aminotransferase 110 units/L (7-56); Albumin 3.1 g/dL (3.9-5); Blood Urea Nitrogen 17 mg/dL (9-20); Calcium 9.4 mg/dL (8.4-10.2); Hemolysis Index 6
[2020-09-04 05:33] LABS: BUN/Creatinine Ratio 34
[2020-09-04] MEDS ORDERED: POTASSIUM CHLORIDE ER 20 MEQ TAB PO NR (08:39)
[2020-09-04] MEDS: THIAMINE 100 MG TAB PO SCH (10:02)
[2020-09-04] MEDS: METOPROLOL TARTRATE 50 MG TAB PO SCH ×2 (10:02→21:41)
[2020-09-04] MEDS: FOLBEE PLUS CZ (FOLIC ACID/VIT BCOMP&C/CU/ZNOX) PO SCH (10:02)
[2020-09-04] MEDS: FAMOTIDINE 20 MG TAB PO SCH ×2 (10:02→21:42)
--- NOTE | 2020-09-04 13:17 | Progress Note ---
Assessment and Plan Nonsustained SVT secondary to delirium tremens/alcohol withdrawal * Telemetry reviewed: Sinus 80s. No events * Patient is currently chest pain-free with no cardiac complaints. Twelve-lead ECG shows sinus tach 109 with no acute ischemic changes. Troponin negative x2. AMI ruled out. * Echocardiogram 08/31/2020: LVEF is 50 to 55%. LV normal size, LV SF normal. Mild diastolic dysfunction. RV SF is normal. Mild MR. RVSP is 36 mmHg. * Continue current rate control /antihypertensive regimen: Metoprolol 50 mg twice daily Alcohol withdrawal secondary to chronic alcohol dependence * Being treated for delirium tremens under [facility] protocol management per primary team DVT prophylaxis * Management per primary team Patient is stable and may be discharged from a cardiac standpoint. Will see as needed. This patient was seen in conjunction with Dr Campo who agrees with this assessment and plan of care - Patient Problems (1) Alcohol withdrawal Current Visit: Yes Status: Acute (2) DVT prophylaxis Current Visit: Yes Status: Acute (3) Facial injury Current Visit: Yes Status: Acute (4) Frequent falls Current Visit: Yes Status: Chronic (5) Hypertension Current Visit: Yes Status: Chronic (6) PTSD (post-traumatic stress disorder) Current Visit: Yes Status: Chronic (7) Nonsustained paroxysmal supraventricular tachycardia Current Visit: Yes Status: Acute (8) Alcohol dependence Current Visit: Yes Status: Chronic Subjective Date of service: 09/04/20 Principal diagnosis: Alcohol withdrawal Interval history: Patient resting in bed with no complaints Sinus with no events on the monitor Objective Last Vital Signs Temp 97.7 F 09/04/20 07:57 Pulse 82 09/04/20 07:57 Resp 20 09/04/20 07:57 BP 118/87 09/04/20 07:57 Pulse Ox 93 09/04/20 09:47 - Physical Examination General: No Apparent Distress HEENT: Positive: PERRL, Normocephaly, Mucus Membranes Moist Neck: Positive: neck supple, trachea midline Cardiac: Positive: Reg Rate and Rhythm Lungs: Positive: Normal Breath Sounds Neuro: Positive: Grossly Intact Abdomen: Positive: Unremarkable, Soft Skin: Positive: Bruising. Negative: Rash, Wound Musculoskeletal: Normal Range of Motion Extremities: Present: upper extr. pulses, lower extr. pulses. Absent: edema - Labs and Meds Cardiac Enzymes 09/04/20 Range/Units 04:39 AST 185 H (5-40) units/L Comprehensive Metabolic Panel 09/04/20 Range/Units 04:39 Sodium 143 (137-145) mmol/L Potassium 3.2 L (3.6-5.0) mmol/L Chloride 105.2 (98-107) mmol/L Carbon Dioxide 23 (22-30) mmol/L BUN 17 (9-20) mg/dL Creatinine 0.5 L (0.8-1.3) mg/dL Glucose 102 H (75-100) mg/dL Calcium 9.4 (8.4-10.2) mg/dL AST 185 H (5-40) units/L ALT 110 H (7-56) units/L Alkaline Phosphatase 187 H (35-129) units/L Total Protein 6.5 (6.3-8.2) g/dL Albumin 3.1 L (3.9-5) g/dL - Imaging and Cardiology EKG: report reviewed, image reviewed Echo: report reviewed (Echocardiogram 08/31/2020: LVEF is 50 to 55%. LV normal size, LV SF normal. Mild diastolic dysfunction. RV SF is normal. Mild MR. RVSP is 36 mmHg.) - Telemetry EKG Rhythm: Sinus Rhythm - EKG Sinus rhythms and dysrhythmias: sinus rhythm
[2020-09-04] MEDS: LORazepam 2 MG/ML VIAL IV PRN (16:48)
[2020-09-05] MEDS: LORazepam 2 MG/ML VIAL IV PRN ×2 (05:14→21:11)
[2020-09-05] MEDS: FOLBEE PLUS CZ (FOLIC ACID/VIT BCOMP&C/CU/ZNOX) PO SCH (10:19)
[2020-09-05] MEDS: FAMOTIDINE 20 MG TAB PO SCH ×2 (10:19→21:09)
[2020-09-05] MEDS: THIAMINE 100 MG TAB PO SCH (10:19)
[2020-09-05] MEDS: METOPROLOL TARTRATE 50 MG TAB PO SCH ×2 (10:20→21:10)
[2020-09-05] MEDS ORDERED: POTASSIUM CHLORIDE ER 20 MEQ TAB PO ONE (13:00)
[2020-09-06] MEDS: LORazepam 2 MG/ML VIAL IV PRN (05:22)
--- NOTE | 2020-09-06 09:30 | Progress Note ---
Assessment and Plan Assessment and Plan --Intermittent SVT ; resolved Current Visit: Yes Status: Acute Nonsustained SVT secondary to delirium tremens/alcohol withdrawal * Telemetry reviewed: Sinus 80s. No events * Patient is currently chest pain-free with no cardiac complaints. Twelve-lead ECG shows sinus tach 109 with no acute ischemic changes. Troponin negative x2. AMI ruled out. * Echocardiogram 08/31/2020: LVEF is 50 to 55%. LV normal size, LV SF normal. Mild diastolic dysfunction. RV SF is normal. Mild MR. RVSP is 36 mmHg. * Continue current rate control /antihypertensive regimen: Metoprolol 50 mg twice daily --Alcohol withdrawal symptoms; Current Visit: Yes Status: Acute Significantly improved, on Ativan as needed for agitation patient still has minimal tremulousness requiring low-dose of Ativan CIAL protocol held, Continue thiamine folic acid Follow PT OT evaluation and recommendations DC planning per case management when medically stable --Chronic alcohol use; Current Visit: Yes Status: Chronic Strongly advised the patient to quit alcohol intake Advised to seek alcohol rehabilitation, alcohol Anonymous Patient verbalized understanding --Alcohol liver disease; LFTs trending down Current Visit: Yes Status: Acute Secondary to chronic alcohol use Advised to quit alcohol intake LFTs trending down, GI evaluated Hepatitis panel negative --Hypokalemia; Current Visit: Yes Status: Acute . Replenished with KCl monitor levels --Hypophosphatemia; resolved Current Visit: Yes Status: Acute. phosphate levels normal today Monitor electrolytes -- Alcohol intoxication/present on admission Current Visit: Yes Status: Acute Thiamine folic acid multivitamins Supportive care, advised to quit Currently patient has alcohol withdrawals on CIAL protocol --Status post fall Current Visit: Yes Status: Acute Fall precautions, physical therapy and Occupational Therapy -- Facial injury Current Visit: Yes Status: Acute Face CT and cervical spine and head CT shows no acute injury. Fall precautions, PT OT when patient is stable -- Hypertension Current Visit: Yes Status: Acute Hydralazine 10 mg IV every 6 hours as needed. We will monitor the blood pressure closely -- chronic alcohol abuse Current Visit: Yes Status: Acute Strongly advised to quit alcohol intake Also advised to seek alcohol rehabilitation And alcohol Anonymous when medically stable --Mild to moderate malnutrition and hypoalbuminemia; Current Visit: Yes Status: Acute Nutrition supplements and supportive care --PTSD (post-traumatic stress disorder) Current Visit: Yes Status: Acute We will monitor the patient closely. Outpatient follow-up with psych -- DVT prophylaxis; Current Visit: Yes Status: Acute SCD for DVT prophylaxis because of facial trauma. Pepcid 20 mg p.o. twice daily for GI prophylaxis. 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 nurse Major Appliance Assembly Supervisor recommendations noted and appreciated Subjective Date of service: 09/05/20 Principal diagnosis: Alcohol withdrawal Interval history: Brief history and daily hospital course: 59-year-old male patient with significant history of chronic alcohol use was admitted through emergency room with alcohol intoxication followed by Alcohol withdrawal symptoms, placed on CIWA protocol, patient had intermittent SVT requiring chemical cardioversion, cardiology evaluated the patient and m edications were optimized, cleared for discharge. Patient continues to have mild tremulousness currently on Ativan as needed Follow PT OT evaluation and recommendations, discharge home when medically stable 08/30/2020; patient is on CIWA protocols Had intermittent SVTs resolved with beta-blockers Cardiology consulted 08/31/2020; no new episodes of SVT Continues to be on CIWA protocols LFTs trending down, GI following Recommend PT OT when medically stable Hypokalemia, hypophosphatemia, replace per protocols 09/01/2020; patient had new episodes of SVT last night Requiring adenosine, metoprolol, transferred to ICU This morning patient is in sinus heart rate in 80s and 90s 09/02/2020; patient remains confused agitated at times, continue CIWA protocol 09/03/2020; continue CIWA protocol Once patient is more stable will request PT OT Will update family today 09/04/2020; hypokalemia replenished Follow PT OT evaluation recommendation DC planning per case management when medically stable possible discharge in 1 to 2 days if he comes off Ativan as needed 09/05/2020 More alert and oriented Out of bed to chair Objective - Constitutional Vitals: Vital Signs - 12hr 09/05/20 09/05/20 09/06/20 21:56 22:00 00:15 Temperature 97.6 F Pulse Rate 100 H 74 Respiratory 22 18 Rate Blood Pressure 135/93 O2 Sat by Pulse 99 95 Oximetry 09/06/20 09/06/20 03:53 07:25 Temperature 97.6 F 98.1 F Pulse Rate 74 84 Respiratory 20 18 Rate Blood Pressure 149/100 165/108 O2 Sat by Pulse 98 94 Oximetry General appearance: Present: no acute distress, well-nourished - EENT Eyes: PERRL, EOM intact ENT: hearing intact, clear oral mucosa Ears: bilateral: normal - Neck Neck: supple, normal ROM - Respiratory Respiratory effort: normal Respiratory: bilateral: CTA - Breasts Breasts: normal - Cardiovascular Rhythm: regular Heart Sounds: Present: S1 & S2. Absent: gallop, rub Extremities: pulses intact, No edema, normal color, Full ROM - Gastrointestinal General gastrointestinal: Present: soft, non-tender, non-distended, normal bowel sounds - Genitourinary Male genitourinary: normal - Integumentary Integumentary: clear, warm, dry - Musculoskeletal Musculoskeletal: 1, strength equal bilaterally - Neurologic Neurologic: moves all extremities - Psychiatric Psychiatric: memory intact, appropriate mood/affect, intact judgment & insight - Labs CBC & Chem 7: 09/01/20 04:47 09/04/20 04:39 HEART Score - HEART Score Troponin: Troponin T < 0.010 ng/mL (0.00-0.029) 09/01/20 04:47
[2020-09-06] MEDS: FAMOTIDINE 20 MG TAB PO SCH ×2 (10:11→21:25)
[2020-09-06] MEDS: METOPROLOL TARTRATE 50 MG TAB PO SCH ×2 (10:11→21:24)
[2020-09-06] MEDS: THIAMINE 100 MG TAB PO SCH (10:11)
[2020-09-06] MEDS: FOLBEE PLUS CZ (FOLIC ACID/VIT BCOMP&C/CU/ZNOX) PO SCH (10:11)
--- NOTE | 2020-09-06 10:54 | Progress Note ---
Assessment and Plan Assessment and Plan --Intermittent SVT ; resolved Current Visit: Yes Status: Acute Nonsustained SVT secondary to delirium tremens/alcohol withdrawal * Telemetry reviewed: Sinus 80s. No events * Patient is currently chest pain-free with no cardiac complaints. Twelve-lead ECG shows sinus tach 109 with no acute ischemic changes. Troponin negative x2. AMI ruled out. * Echocardiogram 08/31/2020: LVEF is 50 to 55%. LV normal size, LV SF normal. Mild diastolic dysfunction. RV SF is normal. Mild MR. RVSP is 36 mmHg. * Continue current rate control /antihypertensive regimen: Metoprolol 50 mg twice daily --Alcohol withdrawal symptoms; Current Visit: Yes Status: Acute Significantly improved, on Ativan as needed for agitation patient still has minimal tremulousness requiring low-dose of Ativan CIOK protocol held, Continue thiamine folic acid Follow PT OT evaluation and recommendations DC planning per case management when medically stable Transaminitis Improving from 473/162 185/ 110 Acute hepatitis profile negative --Chronic alcohol use; Current Visit: Yes Status: Chronic Strongly advised the patient to quit alcohol intake Advised to seek alcohol rehabilitation, alcohol Anonymous Patient verbalized understanding --Alcohol liver disease; LFTs trending down Current Visit: Yes Status: Acute Secondary to chronic alcohol use Advised to quit alcohol intake LFTs trending down, GI evaluated Hepatitis panel negative --Hypokalemia; Current Visit: Yes Status: Acute . Replenished with KCl monitor levels --Hypophosphatemia; resolved Current Visit: Yes Status: Acute. phosphate levels normal today Monitor electrolytes -- Alcohol intoxication/present on admission Current Visit: Yes Status: Acute Thiamine folic acid multivitamins Supportive care, advised to quit Currently patient has alcohol withdrawals on CIOK protocol --Status post fall Current Visit: Yes Status: Acute Fall precautions, physical therapy and Occupational Therapy -- Facial injury Current Visit: Yes Status: Acute Face CT and cervical spine and head CT shows no acute injury. Fall precautions, PT OT when patient is stable -- Hypertension Current Visit: Yes Status: Acute Hydralazine 10 mg IV every 6 hours as needed. We will monitor the blood pressure closely -- chronic alcohol abuse Current Visit: Yes Status: Acute Strongly advised to quit alcohol intake Also advised to seek alcohol rehabilitation And alcohol Anonymous when medically stable --Mild to moderate malnutrition and hypoalbuminemia; Current Visit: Yes Status: Acute Nutrition supplements and supportive care --PTSD (post-traumatic stress disorder) Current Visit: Yes Status: Acute We will monitor the patient closely. Outpatient follow-up with psych -- DVT prophylaxis; Current Visit: Yes Status: Acute SCD for DVT prophylaxis because of facial trauma. Pepcid 20 mg p.o. twice daily for GI prophylaxis. 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 Patient continues to have mild tremulousness currently on Ativan as needed Follow PT OT evaluation and recommendations, discharge home when medically stable 08/30/2020; patient is on CIWA protocols Had intermittent SVTs resolved with beta-blockers Cardiology consulted 08/31/2020; no new episodes of SVT Continues to be on CIWA protocols LFTs trending down, GI following Recommend PT OT when medically stable Hypokalemia, hypophosphatemia, replace per protocols 09/01/2020; patient had new episodes of SVT last night Requiring adenosine, metoprolol, transferred to ICU This morning patient is in sinus heart rate in 80s and 90s 09/02/2020; patient remains confused agitated at times, continue CIWA protocol 09/03/2020; continue CIWA protocol Once patient is more stable will request PT OT Will update family today 09/04/2020; hypokalemia replenished Follow PT OT evaluation recommendation DC planning per case management when medically stable possible discharge in 1 to 2 days if he comes off Ativan as needed 09/05/2020 More alert and oriented Out of bed to chair 09/06/2020 More more alert and oriented Unable to go to his home because no one is present at this point Discussed with his father and Luis Fernando Leal Is Luis Fernando Garvin's phone number is [phone] This phone number is not demographics Patient is willing to accept him tomorrow Continue IV fluids Objective - Constitutional Vitals: Vital Signs - 12hr 09/06/20 09/06/20 09/06/20 00:15 03:53 07:25 Temperature 97.6 F 97.6 F 98.1 F Pulse Rate 74 74 84 Respiratory 18 20 18 Rate Blood Pressure 135/93 149/100 165/108 O2 Sat by Pulse 95 98 94 Oximetry General appearance: Present: no acute distress, well-nourished - EENT Eyes: PERRL, EOM intact ENT: hearing intact, clear oral mucosa Ears: bilateral: normal - Neck Neck: supple, normal ROM - Respiratory Respiratory effort: normal Respiratory: bilateral: CTA - Breasts Breasts: normal - Cardiovascular Rhythm: regular Heart Sounds: Present: S1 & S2. Absent: gallop, rub Extremities: pulses intact, No edema, normal color, Full ROM - Gastrointestinal General gastrointestinal: Present: soft, non-tender, non-distended, normal bowel sounds - Genitourinary Male genitourinary: normal - Integumentary Integumentary: clear, warm, dry - Musculoskeletal Musculoskeletal: 1, strength equal bilaterally - Neurologic Neurologic: moves all extremities - Psychiatric Psychiatric: memory intact, appropriate mood/affect, intact judgment & insight - Labs CBC & Chem 7: 09/01/20 04:47 09/04/20 04:39 HEART Score - HEART Score Troponin: Troponin T < 0.010 ng/mL (0.00-0.029) 09/01/20 04:47
[2020-09-06] MEDS: POTASSIUM CHLORIDE ER 20 MEQ TAB PO ONE ×2 (11:37→16:21)
[2020-09-06] MEDS: SODIUM CHLORIDE 0.9% 1000 ML 1,000 ML IV SCH (14:25)
[2020-09-06 15:45] LABS: Blood Urea Nitrogen 17 mg/dL (9-20); Calcium 9.4 mg/dL (8.4-10.2); Hemolysis Index 25
[2020-09-06 15:51] LABS: BUN/Creatinine Ratio 28
[2020-09-06] MEDS ORDERED: PANTOPRAZOLE 40 MG TAB PO SCH (16:30)
[2020-09-07] MEDS: SODIUM CHLORIDE 0.9% 1000 ML 1,000 ML IV SCH ×2 (02:25→13:00)
[2020-09-07 05:04] LABS: Hemoglobin 13.7 gm/dl (11.8-15.2); Mean Corpuscular HGB Conc 34 % (32-34); Mean Corpuscular Volume 100 fl (84-94); Platelet Count 197 K/mm3 (140-440); Red Cell Distribution Width 13.5 % (13.2-15.2)
[2020-09-07] MEDS: LORazepam 2 MG/ML VIAL IV PRN (05:26)
[2020-09-07 05:28] LABS: Alanine Aminotransferase 104 units/L (7-56); Albumin 2.9 g/dL (3.9-5); Blood Urea Nitrogen 14 mg/dL (9-20); Calcium 8.6 mg/dL (8.4-10.2); Hemolysis Index 10
[2020-09-07 05:31] LABS: BUN/Creatinine Ratio 23
[2020-09-07 06:59] LABS: Anisocytosis 1+; Macrocytosis 1+; Platelet Estimate Consistent w Auto; Total Cells Counted 100
[2020-09-07] MEDS: FOLBEE PLUS CZ (FOLIC ACID/VIT BCOMP&C/CU/ZNOX) PO SCH (10:04)
[2020-09-07] MEDS: FAMOTIDINE 20 MG TAB PO SCH ×2 (10:04→22:54)
[2020-09-07] MEDS: THIAMINE 100 MG TAB PO SCH (10:04)
[2020-09-07] MEDS: METOPROLOL TARTRATE 50 MG TAB PO SCH ×2 (10:05→22:54)
--- NOTE | 2020-09-08 07:20 | Progress Note ---
Assessment and Plan Assessment and Plan --Intermittent SVT ; resolved Current Visit: Yes Status: Acute Nonsustained SVT secondary to delirium tremens/alcohol withdrawal * Telemetry reviewed: Sinus 80s. No events * Patient is currently chest pain-free with no cardiac complaints. Twelve-lead ECG shows sinus tach 109 with no acute ischemic changes. Troponin negative x2. AMI ruled out. * Echocardiogram 08/31/2020: LVEF is 50 to 55%. LV normal size, LV SF normal. Mild diastolic dysfunction. RV SF is normal. Mild MR. RVSP is 36 mmHg. * Continue current rate control /antihypertensive regimen: Metoprolol 50 mg twice daily --Alcohol withdrawal symptoms; Current Visit: Yes Status: Acute Significantly improved May be discharged on oral Ativan for a few days and to follow-up with PCP for further care Transaminitis Improving --Chronic alcohol use; Current Visit: Yes Status: Chronic Strongly advised the patient to quit alcohol intake Advised to seek alcohol rehabilitation, alcohol Anonymous Patient verbalized understanding --Alcohol liver disease; LFTs trending down Current Visit: Yes Status: Acute Secondary to chronic alcohol use Advised to quit alcohol intake LFTs trending down, GI evaluated Hepatitis panel negative --Hypokalemia; Current Visit: Yes Status: Acute . Replenished with KCl monitor levels --Hypophosphatemia; resolved Current Visit: Yes Status: Acute. phosphate levels normal today Monitor electrolytes -- Alcohol intoxication/present on admission Current Visit: Yes Status: Acute Thiamine folic acid multivitamins Supportive care, advised to quit Currently patient has alcohol withdrawals on CIWA protocol --Status post fall Current Visit: Yes Status: Acute Fall precautions, physical therapy and Occupational Therapy -- Facial injury Current Visit: Yes Status: Acute Face CT and cervical spine and head CT shows no acute injury. Fall precautions, PT OT when patient is stable -- Hypertension Current Visit: Yes Status: Acute Hydralazine 10 mg IV every 6 hours as needed. We will monitor the blood pressure closely -- chronic alcohol abuse Current Visit: Yes Status: Acute Strongly advised to quit alcohol intake Also advised to seek alcohol rehabilitation And alcohol Anonymous when medically stable --Mild to moderate malnutrition and hypoalbuminemia; Current Visit: Yes Status: Acute Nutrition supplements and supportive care --PTSD (post-traumatic stress disorder) Current Visit: Yes Status: Acute We will monitor the patient closely. Outpatient follow-up with psych -- DVT prophylaxis; Current Visit: Yes Status: Acute SCD for DVT prophylaxis because of facial trauma. Pepcid 20 mg p.o. twice daily for GI prophylaxis. Patient is a full code Possible discharge tomorrow I had discharge him today but was not possible because of logistics Subjective Date of service: 09/07/20 Principal diagnosis: Alcohol withdrawal Interval history: Brief history and daily hospital course: 59-year-old male patient with significant history of chronic alcohol use was admitted through emergency room with alcohol intoxication followed by Alcohol withdrawal symptoms, placed on CIWA protocol, patient had intermittent SVT requiring chemical cardioversion, cardiology evaluated the patient and medications were optimized, cleared for discharge. Patient continues to have mild tremulousness currently on Ativan as needed Follow PT OT evaluation and recommendations, discharge home when medically stable 08/30/2020; patient is on CIWA protocols Had intermittent SVTs resolved with beta-blockers Cardiology consulted 08/31/2020; no new episodes of SVT Continues to be on CIWA protocols LFTs trending down, GI following Recommend PT OT when medically stable Hypokalemia, hypophosphatemia, replace per protocols 09/01/2020; patient had new episodes of SVT last night Requiring adenosine, metoprolol, transferred to ICU This morning patient is in sinus heart rate in 80s and 90s 09/02/2020; patient remains confused agitated at times, continue CIWA protocol 09/03/2020; continue CIWA protocol Once patient is more stable will request PT OT Will update family today 09/04/2020; hypokalemia replenished Follow PT OT evaluation recommendation DC planning per case management when medically stable possible discharge in 1 to 2 days if he comes off Ativan as needed 09/05/2020 More alert and oriented Out of bed to chair 09/06/2020 More more alert and oriented Unable to go to his home because no one is present at this point Discussed with his father and Luis Fernando Garvin's phone number is [phone] This phone number is not demographics Patient is willing to accept him tomorrow Continue IV fluids 09/07/2020 Patient is more alert and oriented Possible discharge tomorrow To discuss with Luis Fernando Garvin at [phone] More alert and responsive Objective - Constitutional Vitals: Vital Signs - 12hr 09/07/20 09/07/20 09/07/20 20:39 22:00 22:54 Temperature Pulse Rate 84 85 Pulse Rate [ 78 From Monitor] Respiratory 18 Rate Blood Pressure 139/91 Blood Pressure [Left] O2 Sat by Pulse 96 97 Oximetry 09/07/20 09/08/20 09/08/20 23:21 03:47 06:06 Temperature 97.8 F 98.0 F Pulse Rate 86 84 72 Pulse Rate [ From Monitor] Respiratory 18 18 16 Rate Blood Pressure 160/107 195/112 Blood Pressure 126/63 [Left] O2 Sat by Pulse 97 97 98 Oximetry General appearance: Present: no acute distress, well-nourished - EENT Eyes: PERRL, EOM intact ENT: hearing intact, clear oral mucosa Ears: bilateral: normal - Neck Neck: supple, normal ROM - Respiratory Respiratory effort: normal Respiratory: bilateral: CTA - Breasts Breasts: normal - Cardiovascular Heart rate: 78 Rhythm: regular Heart Sounds: Present: S1 & S2. Absent: gallop, rub Extremities: pulses intact, No edema, normal color, Full ROM - Gastrointestinal General gastrointestinal: Present: soft, non-tender, non-distended, normal bowel sounds - Genitourinary Male genitourinary: normal - Integumentary Integumentary: clear, warm, dry - Musculoskeletal Musculoskeletal: 1, strength equal bilaterally - Neurologic Neurologic: moves all extremities - Psychiatric Psychiatric: memory intact, appropriate mood/affect, intact judgment & insight - Labs CBC & Chem 7: 09/07/20 04:28 09/07/20 04:28 HEART Score - HEART Score Troponin: Troponin T < 0.010 ng/mL (0.00-0.029) 09/01/20 04:47
[2020-09-08] MEDS: LORazepam 2 MG/ML VIAL IV PRN ×2 (09:04→17:10)
[2020-09-08] MEDS: THIAMINE 100 MG TAB PO SCH (10:04)
[2020-09-08] MEDS: METOPROLOL TARTRATE 50 MG TAB PO SCH ×2 (10:04→22:50)
[2020-09-08] MEDS: FAMOTIDINE 20 MG TAB PO SCH ×2 (10:04→22:50)
[2020-09-08] MEDS: FOLBEE PLUS CZ (FOLIC ACID/VIT BCOMP&C/CU/ZNOX) PO SCH (10:05)
--- NOTE | 2020-09-08 10:20 | Progress Note ---
Assessment and Plan Assessment and plan: --Intermittent SVT ; resolved Current Visit: Yes Status: Acute Nonsustained SVT secondary to delirium tremens/alcohol withdrawal * Telemetry reviewed: Sinus 80s. No events * Patient is currently chest pain-free with no cardiac complaints. Twelve-lead ECG shows sinus tach 109 with no acute ischemic changes. Troponin negative x2. AMI ruled out. * Echocardiogram 08/31/2020: LVEF is 50 to 55%. LV normal size, LV SF normal. Mild diastolic dysfunction. RV SF is normal. Mild MR. RVSP is 36 mmHg. * Continue current rate control /antihypertensive regimen: Metoprolol 50 mg twice daily --Alcohol withdrawal symptoms; Current Visit: Yes Status: Acute Significantly improved May be discharged on oral Ativan for a few days and to follow-up with PCP for further care Transaminitis; Current Visit: Yes Status: Acute Trending down, due to alcoholic hepatitis Strongly advised to quit alcohol intake --Chronic alcohol use; Current Visit: Yes Status: Chronic Strongly advised the patient to quit alcohol intake Advised to seek alcohol rehabilitation, alcohol Anonymous Patient verbalized understanding --Alcohol liver disease; LFTs trending down Current Visit: Yes Status: Acute Secondary to chronic alcohol use Advised to quit alcohol intake LFTs trending down, GI evaluated Hepatitis panel negative --Hypokalemia; Current Visit: Yes Status: Acute . Replenished with KCl monitor levels --Hypophosphatemia; resolved Current Visit: Yes Status: Acute. phosphate levels normal today Monitor electrolytes -- Alcohol intoxication/present on admission Current Visit: Yes Status: Acute Thiamine folic acid multivitamins Supportive care, advised to quit Currently patient has alcohol withdrawals on CIWA protocol --Status post fall Current Visit: Yes Status: Acute Fall precautions, physical therapy and Occupational Therapy -- Facial injury Current Visit: Yes Status: Acute Face CT and cervical spine and head CT shows no acute injury. Fall precautions, PT OT when patient is stable -- Hypertension Current Visit: Yes Status: Acute Hydralazine 10 mg IV every 6 hours as needed. We will monitor the blood pressure closely -- chronic alcohol abuse Current Visit: Yes Status: Acute Strongly advised to quit alcohol intake Also advised to seek alcohol rehabilitation And alcohol Anonymous when medically stable --Mild to moderate malnutrition and hypoalbuminemia; Current Visit: Yes Status: Acute Nutrition supplements and supportive care --PTSD (post-traumatic stress disorder) Current Visit: Yes Status: Acute We will monitor the patient closely. Outpatient follow-up with psych -- DVT prophylaxis; Current Visit: Yes Status: Acute SCD for DVT prophylaxis because of facial trauma. Pepcid 20 mg p.o. twice daily for GI prophylaxis. Patient is a full code Possible discharge tomorrow I had discharge him today but was not possible because of logistics Subjective Date of service: 09/07/20 Principal diagnosis: Alcohol withdrawal Interval history: Brief history and daily hospital course: 59-year-old male patient with significant history of chronic alcohol use was admitted through emergency room with alcohol intoxication followed by Alcohol withdrawal symptoms, placed on CIWA protocol, patient had intermittent SVT requiring chemical cardioversion, cardiology evaluated the patient and medications were optimized, cleared for discharge. Patient continues to have mild tremulousness currently on Ativan as needed Follow PT OT evaluation and recommendations, discharge home when medically stable 08/30/2020; patient is on CIWA protocols Had intermittent SVTs resolved with beta-blockers Cardiology consulted 08/31/2020; no new episodes of SVT Continues to be on CIWA protocols LFTs trending down, GI following Recommend PT OT when medically stable Hypokalemia, hypophosphatemia, replace per protocols 09/01/2020; patient had new episodes of SVT last night Requiring adenosine, metoprolol, transferred to ICU This morning patient is in sinus heart rate in 80s and 90s 09/02/2020; patient remains confused agitated at times, continue CIWA protocol 09/03/2020; continue CIWA protocol Once patient is more stable will request PT OT Will update family today 09/04/2020; hypokalemia replenished Follow PT OT evaluation recommendation DC planning per case management when medically stable possible discharge in 1 to 2 days if he comes off Ativan as needed 09/05/2020 More alert and oriented Out of bed to chair 09/06/2020 More more alert and oriented Unable to go to his home because no one is present at this point Discussed with his father and Luis Fernando Garvin's phone number is [phone] This phone number is not demographics Patient is willing to accept him tomorrow Continue IV fluids 09/07/2020 Patient is more alert and oriented Possible discharge tomorrow To discuss with Luis Fernando Garvin at [phone] More alert and responsive 09/08/2020; Patient awaiting placement History Interval history: I have seen and examined the patient at the bedside Patient's chart and medications reviewed Patient feels slightly better no alcohol withdrawal symptoms except for minimal tremulousness Vital signs noted Hospitalist Physical - Constitutional Vitals: Temp Pulse Resp BP Pulse Ox 98.3 F 78 18 161/114 98 09/08/20 08:17 09/08/20 08:20 09/08/20 08:20 09/08/20 08:17 09/08/20 09:15 General appearance: Present: no acute distress, well-nourished - EENT Eyes: Present: PERRL, EOM intact - Neck Neck: Present: supple, normal ROM - Respiratory Respiratory effort: normal Respiratory: bilateral: diminished, negative: rales, rhonchi, wheezing - Cardiovascular Rhythm: regular Heart Sounds: Present: S1 & S2 - Extremities Extremities: no ischemia, No edema - Abdominal General gastrointestinal: soft, non-tender, non-distended, normal bowel sounds - Integumentary Integumentary: Present: clear, warm - Psychiatric Psychiatric: appropriate mood/affect, cooperative - Neurologic Neurologic: CNII-XII intact, moves all extremities HEART Score - HEART Score Troponin: Troponin T < 0.010 ng/mL (0.00-0.029) 09/01/20 04:47 Results - Labs CBC & Chem 7: 09/07/20 04:28 09/07/20 04:28 Labs: Laboratory Last Values WBC 4.1 K/mm3 (4.5-11.0) L 09/07/20 04:28 RBC 4.00 M/mm3 (3.65-5.03) 09/07/20 04:28 Hgb 13.7 gm/dl (11.8-15.2) 09/07/20 04:28 Hct 40.0 % (35.5-45.6) 09/07/20 04:28 MCV 100 fl (84-94) H 09/07/20 04:28 MCH 34 pg (28-32) H 09/07/20 04:28 MCHC 34 % (32-34) 09/07/20 04:28 RDW 13.5 % (13.2-15.2) 09/07/20 04:28 Plt Count 197 K/mm3 (140-440) 09/07/20 04:28 Lymph % (Auto) 18.4 % (13.4-35.0) 08/31/20 03:37 [place] % (Auto) [employer] 09/07/20 04:28 Eos % (Auto) 0.4 % (0.0-4.3) 08/31/20 03:37 Baso % (Auto) 1.2 % (0.0-1.8) 08/31/20 03:37 Lymph # (Auto) 0.8 K/mm3 (1.2-5.4) L 08/31/20 03:37 [place] # (Auto) 0.6 K/mm3 (0.0-0.8) 08/31/20 03:37 Eos # (Auto) 0.0 K/mm3 (0.0-0.4) 08/31/20 03:37 Baso # (Auto) 0.1 K/mm3 (0.0-0.1) 08/31/20 03:37 Add Manual Diff Complete 09/07/20 04:28 Total Counted 100 09/07/20 04:28 Seg Neutrophils % 66.7 % (40.0-70.0) 08/31/20 03:37 Seg Neuts % (Manual) 59.0 % (40.0-70.0) 09/07/20 04:28 Lymphocytes % (Manual) 27.0 % (13.4-35.0) 09/07/20 04:28 Monocytes % (Manual) 13.0 % (0.0-7.3) H 09/07/20 04:28 Basophils % (Manual) 1.0 % (0.0-1.8) 09/07/20 04:28 Nucleated RBC % Not Reportable 09/07/20 04:28 Seg Neutrophils # 3.0 K/mm3 (1.8-7.7) 08/31/20 03:37 Seg Neutrophils # Man 2.4 K/mm3 (1.8-7.7) 09/07/20 04:28 Band Neutrophils # 0.0 K/mm3 09/07/20 04:28 Lymphocytes # (Manual) 1.1 K/mm3 (1.2-5.4) L 09/07/20 04:28 Abs React Lymphs (Man) 0.0 K/mm3 09/07/20 04:28 Monocytes # (Manual) 0.5 K/mm3 (0.0-0.8) 09/07/20 04:28 Eosinophils # (Manual) 0.0 K/mm3 (0.0-0.4) 09/07/20 04:28 Basophils # (Manual) 0.0 K/mm3 (0.0-0.1) 09/07/20 04:28 Metamyelocytes # 0.0 K/mm3 09/07/20 04:28 Myelocytes # 0.0 K/mm3 09/07/20 04:28 Promyelocytes # 0.0 K/mm3 09/07/20 04:28 Blast Cells # 0.0 K/mm3 09/07/20 04:28 WBC Morphology Not Reportable 09/07/20 04:28 Hypersegmented Neuts Not Reportable 09/07/20 04:28 Hyposegmented Neuts Not Reportable 09/07/20 04:28 Hypogranular Neuts Not Reportable 09/07/20 04:28 Smudge Cells Not Reportable 09/07/20 04:28 Toxic Granulation Not Reportable 09/07/20 04:28 Toxic Vacuolation Not Reportable 09/07/20 04:28 Dohle Bodies Not Reportable 09/07/20 04:28 Pelger-Huet Anomaly Not Reportable 09/07/20 04:28 César Rods Not Reportable 09/07/20 04:28 Platelet Estimate Consistent w auto 09/07/20 04:28 Clumped Platelets Not Reportable 09/07/20 04:28 Plt Clumps, EDTA Not Reportable 09/07/20 04:28 Large Platelets Not Reportable 09/07/20 04:28 Giant Platelets Not Reportable 09/07/20 04:28 Platelet Satelliting Not Reportable 09/07/20 04:28 Plt Morphology Comment Not Reportable 09/07/20 04:28 RBC Morphology Not Reportable 09/07/20 04:28 Dimorphic RBCs Not Reportable 09/07/20 04:28 Polychromasia Not Reportable 09/07/20 04:28 Hypochromasia Not Reportable 09/07/20 04:28 Poikilocytosis Not Reportable 09/07/20 04:28 Anisocytosis 1+ 09/07/20 04:28 Microcytosis Not Reportable 09/07/20 04:28 Macrocytosis 1+ 09/07/20 04:28 Spherocytes Not Reportable 09/07/20 04:28 Pappenheimer Bodies Not Reportable 09/07/20 04:28 Sickle Cells Not Reportable 09/07/20 04:28 Target Cells Not Reportable 09/07/20 04:28 Tear Drop Cells Not Reportable 09/07/20 04:28 Ovalocytes Not Reportable 09/07/20 04:28 Helmet Cells Not Reportable 09/07/20 04:28 Singh-[place] Bodies Not Reportable 09/07/20 04:28 [place] Rings Not Reportable 09/07/20 04:28 Sukhjinder Cells Not Reportable 09/07/20 04:28 Bite Cells Not Reportable 09/07/20 04:28 Crenated Cell Not Reportable 09/07/20 04:28 Elliptocytes Not Reportable 09/07/20 04:28 Acanthocytes (Spur) Not Reportable 09/07/20 04:28 Rouleaux Not Reportable 09/07/20 04:28 Hemoglobin C Crystals Not Reportable 09/07/20 04:28 Schistocytes Not Reportable 09/07/20 04:28 Malaria parasites Not Reportable 09/07/20 04:28 Abe Bodies Not Reportable 09/07/20 04:28 Hem Pathologist Commnt No 09/07/20 04:28 PT 14.0 Sec. (12.2-14.9) 08/29/20 22:18 INR 1.03 (0.87-1.13) 08/29/20 22:18 APTT 31.1 Sec. (24.2-36.6) 08/29/20 22:18 Sodium 146 mmol/L (137-145) H 09/07/20 04:28 Potassium 3.6 mmol/L (3.6-5.0) 09/07/20 04:28 Chloride 109.9 mmol/L (98-107) H 09/07/20 04:28 Carbon Dioxide 25 mmol/L (22-30) 09/07/20 04:28 Anion Gap 15 mmol/L 09/07/20 04:28 BUN 14 mg/dL (9-20) 09/07/20 04:28 Creatinine 0.6 mg/dL (0.8-1.3) L 09/07/20 04:28 Estimated GFR > 60 ml/min 09/07/20 04:28 BUN/Creatinine Ratio 23 % 09/07/20 04:28 Glucose 106 mg/dL (75-100) H 09/07/20 04:28 Calcium 8.6 mg/dL (8.4-10.2) 09/07/20 04:28 Phosphorus 4.00 mg/dL (2.5-4.5) 09/03/20 05:13 Magnesium 2.10 mg/dL (1.7-2.3) 09/04/20 04:39 Total Bilirubin 0.70 mg/dL (0.1-1.2) 09/07/20 04:28 Direct Bilirubin 0.9 mg/dL (0-0.2) H 09/01/20 04:47 Indirect Bilirubin 0.9 mg/dL 09/01/20 04:47 AST 112 units/L (5-40) H 09/07/20 04:28 ALT 104 units/L (7-56) H 09/07/20 04:28 Alkaline Phosphatase 180 units/L (35-129) H 09/07/20 04:28 Total Creatine Kinase 374 units/L (55-170) H 08/29/20 22:30 Troponin T < 0.010 ng/mL (0.00-0.029) 09/01/20 04:47 Total Protein 6.0 g/dL (6.3-8.2) L 09/07/20 04:28 Albumin 2.9 g/dL (3.9-5) L 09/07/20 04:28 Albumin/Globulin Ratio 0.9 % 09/07/20 04:28 Salicylates < 0.3 mg/dL (2.8-20.0) L 08/29/20 22:18 Urine Opiates Screen Presumptive negative 08/29/20 23:45 Urine Methadone Screen Presumptive negative 08/29/20 23:45 Acetaminophen 5.0 ug/mL (10.0-30.0) L 08/29/20 22:18 Ur Barbiturates Screen Presumptive negative 08/29/20 23:45 Ur Phencyclidine Scrn Presumptive negative 08/29/20 23:45 Ur Amphetamines Screen Presumptive negative 08/29/20 23:45 U Benzodiazepines Scrn Presumptive negative 08/29/20 23:45 Urine Cocaine Screen Presumptive negative 08/29/20 23:45 U Marijuana (THC) Screen Presumptive negative 08/29/20 23:45 Drugs of Abuse Note Disclamer 08/29/20 23:45 Plasma/Serum Alcohol 0.43 % (0-0.07) H 08/29/20 22:18 Hepatitis A IgM Ab Non-reactive (NonReactive) 08/30/20 13:37 Hep Bs Antigen Non-reactive (Negative) 08/30/20 13:37 Hepatitis C Antibody Non-reactive (NonReactive) 08/30/20 13:37 [place]/IV: Voiding Method Condom Catheter Active Medications - Current Medications Current Medications: Generic Name Dose Route Start Last Admin Trade Name Freq PRN Reason Stop Dose Admin Acetaminophen 650 mg 08/30/20 00:19 Acetaminophen 325 Mg Tab PO Q4H PRN Pain MILD(1-3)/Fever >100.5/AMOS Albuterol 2.5 mg 08/30/20 00:19 Albuterol 2.5 Mg/3 Ml Nebu IH Q4HRT PRN Shortness Of Breath Famotidine 20 mg 08/30/20 10:00 09/08/20 10:04 Famotidine 20 Mg Tab PO 20 mg BID LEANNE Administration Sodium Chloride 1,000 mls @ 100 mls/hr 09/06/20 11:00 09/07/20 13:00 Nacl 0.9% 1000 Ml IV 100 mls/hr DIRECT LEANNE Administration Lorazepam 2 mg 09/03/20 10:00 09/08/20 09:04 Lorazepam 2 Mg/Ml Vial IV 2 mg Q4H PRN Administration Agitation Metoprolol Tartrate 5 mg 08/30/20 17:23 08/31/20 22:40 Metoprolol Tartrate 5 Mg/5 Ml Inj IV 5 mg Q4H PRN Administration Tachyarrhythmias Metoprolol Tartrate 50 mg 09/01/20 22:00 09/08/20 10:04 Metoprolol Tartrate 50 Mg Tab PO 50 mg BID LEANNE Administration Ondansetron HCl 4 mg 08/30/20 00:19 Ondansetron 4 Mg/2 Ml Inj IV Q8H PRN Nausea And Vomiting Sodium Chloride 10 ml 08/30/20 10:00 09/08/20 10:05 Sodium Chloride 0.9% 10 Ml Flush Syringe IV 10 ml BID LEANNE Administration Sodium Chloride 10 ml 08/30/20 00:19 Sodium Chloride 0.9% 10 Ml Flush Syringe IV PRN PRN LINE FLUSH Thiamine HCl 100 mg 08/31/20 10:00 09/08/20 10:04 Thiamine 100 Mg Tab PO 100 mg QDAY LEANNE Administration Vitamin B Complex/Folic Acid 1 each 08/31/20 10:00 09/08/20 10:05 Folbee Plus Cz (Folic Acid/Vit Bcomp&C/Cu/Znox) PO 1 each QDAY LEANNE Administration Nutrition/Malnutrition Assess - Dietary Evaluation Nutrition/Malnutrition Findings: Nutrition Notes Start: 09/04/20 12:22 Freq: Status: Active Protocol: Document 09/07/20 14:14 CHRIS (Rec: 09/07/20 14:18 CHRIS [id number]) Nutrition Notes Initial or Follow up Reassessment Current Diagnosis Hypertension Other Pertinent Diagnosis alcohol withdrawal and dependence, fall Current Diet Cardiac Labs/Tests Na 146 Pertinent Medications Thiamine NS at 100 ml/hr Height 5 ft 10 in Weight 71.1 kg Winnie Body Weight (kg) 75.45 BMI 22.4 Weight change and time frame 17% wt loss in 9 days Weight Status Appropriate Subjective/Other Information FU for intakes. Pt drinking 100% of 2 ONS and eating 0% of meals. Percent of energy/protein needs met: 38%/63% Burn Absent Trauma Absent Current % PO Negligible Minimum of two criteria Yes Energy Intake (severe) < or equal to 50% Estimated Energy Requirement > or equal to 5 days Interpretation of Weight Loss (severe) >2% in 1 week #1 Nutrition Diagnosis Inadequate oral intake Diagnosis Progress(for reassessment Continues documentation) Is patient on ventilator? No Is Patient Ambulatory and/or Out of Bed No REE-([facility]-confined to bed) [phone] Calculation Used for Recommendations [facility] Additional Notes Protein: (0.8-1g/kg) 63-78g Fluid: 1 ml/kcal Nutrition Intervention Change Diet Order: Continue Add Supplement/Snack (indicate name/kcal Ensure Enlive QID /protein ) Provides kCal: 1,400 Provides Protein (gm) 80 Goal #1 Meet at least 75% of energy and protein needs via PO and ONS Anticipated Discharge Needs: cardiac Follow-Up By: 09/09/20 Additional Comments FU for intakes and ONS tolerance
[2020-09-08] MEDS: SODIUM CHLORIDE 0.9% 1000 ML 1,000 ML IV SCH (15:14)
[2020-09-09] MEDS: SODIUM CHLORIDE 0.9% 1000 ML 1,000 ML IV SCH (00:39)
[2020-09-09 06:41] LABS: Alanine Aminotransferase 78 units/L (7-56); Albumin 2.5 g/dL (3.9-5); Blood Urea Nitrogen 6 mg/dL (9-20); Hemolysis Index 17
[2020-09-09 06:53] LABS: BUN/Creatinine Ratio 12
[2020-09-09] MEDS: FAMOTIDINE 20 MG TAB PO SCH ×2 (09:09→22:00)
[2020-09-09] MEDS: FOLBEE PLUS CZ (FOLIC ACID/VIT BCOMP&C/CU/ZNOX) PO SCH (09:09)
[2020-09-09] MEDS: THIAMINE 100 MG TAB PO SCH (09:09)
[2020-09-09] MEDS: METOPROLOL TARTRATE 50 MG TAB PO SCH ×2 (09:12→22:00)
--- NOTE | 2020-09-09 12:58 | Progress Note ---
Assessment and Plan Assessment and plan: --Alcohol withdrawal symptoms; Current Visit: Yes Status: Acute Significantly improved May be discharged on oral Ativan for a few days and to follow-up with PCP for further care --Intermittent SVT ; resolved Current Visit: Yes Status: Acute Nonsustained SVT secondary to delirium tremens/alcohol withdrawal Echocardiogram 08/31/2020: LVEF is 50 to 55%. LV normal size, LV SF normal. Mild diastolic dysfunction. RV SF is normal. Mild MR. RVSP is 36 mmHg. Continue current rate control /antihypertensive regimen: Metoprolol 50 mg twice daily --Transaminitis; Current Visit: Yes Status: Acute Trending down, due to alcoholic hepatitis Trending down --Chronic alcohol use; Current Visit: Yes Status: Chronic Strongly advised the patient to quit alcohol intake Advised to seek alcohol rehabilitation, alcohol Anonymous Patient verbalized understanding --Alcohol liver disease; LFTs trending down Current Visit: Yes Status: Acute Secondary to chronic alcohol use Advised to quit alcohol intake LFTs trending down, GI evaluated Hepatitis panel negative --Hypokalemia; Current Visit: Yes Status: Acute . Replenished with KCl monitor levels --Hypophosphatemia; resolved Current Visit: Yes Status: Acute. phosphate levels normal today Monitor electrolytes -- Alcohol intoxication/present on admission Current Visit: Yes Status: Acute Thiamine folic acid multivitamins Supportive care, advised to quit Currently patient has alcohol withdrawals on CIWA protocol --Status post fall Current Visit: Yes Status: Acute Fall precautions, physical therapy and Occupational Therapy -- Facial injury Current Visit: Yes Status: Acute Face CT and cervical spine and head CT shows no acute injury. Fall precautions, PT OT when patient is stable -- Hypertension Current Visit: Yes Status: Acute Hydralazine 10 mg IV every 6 hours as needed. We will monitor the blood pressure closely --Mild to moderate malnutrition and hypoalbuminemia; Current Visit: Yes Status: Acute Nutrition supplements and supportive care --PTSD (post-traumatic stress disorder) Current Visit: Yes Status: Acute We will monitor the patient closely. Outpatient follow-up with psych -- DVT prophylaxis; Current Visit: Yes Status: Acute SCD for DVT prophylaxis because of facial trauma. Pepcid 20 mg p.o. twice daily for GI prophylaxis. Patient is a full code DC planning per case management Awaiting placement Patient is medically stable for discharge Subjective Date of service: 09/07/20 Principal diagnosis: Alcohol withdrawal Interval history: Brief history and daily hospital course: 59-year-old male patient with significant history of chronic alcohol use was admitted through emergency room with alcohol intoxication followed by Alcohol withdrawal symptoms, placed on CIWA protocol, patient had intermittent SVT requiring chemical cardioversion, cardiology evaluated the patient and medications were optimized, cleared for discharge. Patient continues to have mild tremulousness currently on Ativan as needed Follow PT OT evaluation and recommendations, discharge home when medically stable 08/30/2020; patient is on CIWA protocols Had intermittent SVTs resolved with beta-blockers Cardiology consulted 08/31/2020; no new episodes of SVT Continues to be on CIWA protocols LFTs trending down, GI following Recommend PT OT when medically stable Hypokalemia, hypophosphatemia, replace per protocols 09/01/2020; patient had new episodes of SVT last night Requiring adenosine, metoprolol, transferred to ICU This morning patient is in sinus heart rate in 80s and 90s 09/02/2020; patient remains confused agitated at times, continue CIWA protocol 09/03/2020; continue CIWA protocol Once patient is more stable will request PT OT Will update family today 09/04/2020; hypokalemia replenished Follow PT OT evaluation recommendation DC planning per case management when medically stable possible discharge in 1 to 2 days if he comes off Ativan as needed 09/05/2020 More alert and oriented Out of bed to chair 09/06/2020 More more alert and oriented Unable to go to his home because no one is present at this point Discussed with his father and Luis Fernando Garvin's phone number is [phone] This phone number is not demographics Patient is willing to accept him tomorrow Continue IV fluids 09/07/2020 Patient is more alert and oriented Possible discharge tomorrow To discuss with Luis Fernando Garvin at [phone] More alert and responsive 09/08/2020; Patient awaiting placement 09/09/2020; awaiting placement History Interval history: I have seen and examined the patient at the bedside Patient's chart and medications reviewed Patient feels slightly better no new complaints Mild tremulousness intermittent Patient is stable for discharge Awaiting placement Hospitalist Physical - Constitutional Vitals: Temp Pulse Resp BP Pulse Ox 99.2 F 77 20 116/80 97 09/09/20 11:35 09/09/20 11:35 09/09/20 11:35 09/09/20 11:35 09/09/20 11:35 General appearance: Present: no acute distress, well-nourished - EENT Eyes: Present: PERRL, EOM intact - Neck Neck: Present: supple, normal ROM - Respiratory Respiratory effort: normal Respiratory: bilateral: diminished, negative: rales, rhonchi, wheezing - Cardiovascular Rhythm: regular Heart Sounds: Present: S1 & S2 - Extremities Extremities: no ischemia, No edema - Abdominal General gastrointestinal: soft, non-tender, non-distended, normal bowel sounds - Integumentary Integumentary: Present: clear, warm - Psychiatric Psychiatric: appropriate mood/affect, cooperative - Neurologic Neurologic: CNII-XII intact, moves all extremities HEART Score - HEART Score Troponin: Troponin T < 0.010 ng/mL (0.00-0.029) 09/01/20 04:47 Results - Labs CBC & Chem 7: 09/07/20 04:28 09/09/20 05:17 Labs: Laboratory Last Values WBC 4.1 K/mm3 (4.5-11.0) L 09/07/20 04:28 RBC 4.00 M/mm3 (3.65-5.03) 09/07/20 04:28 Hgb 13.7 gm/dl (11.8-15.2) 09/07/20 04:28 Hct 40.0 % (35.5-45.6) 09/07/20 04:28 MCV 100 fl (84-94) H 09/07/20 04:28 MCH 34 pg (28-32) H 09/07/20 04:28 MCHC 34 % (32-34) 09/07/20 04:28 RDW 13.5 % (13.2-15.2) 09/07/20 04:28 Plt Count 197 K/mm3 (140-440) 09/07/20 04:28 Lymph % (Auto) 18.4 % (13.4-35.0) 08/31/20 03:37 [place] % (Auto) Floor Assembler 09/07/20 04:28 Eos % (Auto) 0.4 % (0.0-4.3) 08/31/20 03:37 Baso % (Auto) 1.2 % (0.0-1.8) 08/31/20 03:37 Lymph # (Auto) 0.8 K/mm3 (1.2-5.4) L 08/31/20 03:37 [place] # (Auto) 0.6 K/mm3 (0.0-0.8) 08/31/20 03:37 Eos # (Auto) 0.0 K/mm3 (0.0-0.4) 08/31/20 03:37 Baso # (Auto) 0.1 K/mm3 (0.0-0.1) 08/31/20 03:37 Add Manual Diff Complete 09/07/20 04:28 Total Counted 100 09/07/20 04:28 Seg Neutrophils % 66.7 % (40.0-70.0) 08/31/20 03:37 Seg Neuts % (Manual) 59.0 % (40.0-70.0) 09/07/20 04:28 Lymphocytes % (Manual) 27.0 % (13.4-35.0) 09/07/20 04:28 Monocytes % (Manual) 13.0 % (0.0-7.3) H 09/07/20 04:28 Basophils % (Manual) 1.0 % (0.0-1.8) 09/07/20 04:28 Nucleated RBC % Not Reportable 09/07/20 04:28 Seg Neutrophils # 3.0 K/mm3 (1.8-7.7) 08/31/20 03:37 Seg Neutrophils # Man 2.4 K/mm3 (1.8-7.7) 09/07/20 04:28 Band Neutrophils # 0.0 K/mm3 09/07/20 04:28 Lymphocytes # (Manual) 1.1 K/mm3 (1.2-5.4) L 09/07/20 04:28 Abs React Lymphs (Man) 0.0 K/mm3 09/07/20 04:28 Monocytes # (Manual) 0.5 K/mm3 (0.0-0.8) 09/07/20 04:28 Eosinophils # (Manual) 0.0 K/mm3 (0.0-0.4) 09/07/20 04:28 Basophils # (Manual) 0.0 K/mm3 (0.0-0.1) 09/07/20 04:28 Metamyelocytes # 0.0 K/mm3 09/07/20 04:28 Myelocytes # 0.0 K/mm3 09/07/20 04:28 Promyelocytes # 0.0 K/mm3 09/07/20 04:28 Blast Cells # 0.0 K/mm3 09/07/20 04:28 WBC Morphology Not Reportable 09/07/20 04:28 Hypersegmented Neuts Not Reportable 09/07/20 04:28 Hyposegmented Neuts Not Reportable 09/07/20 04:28 Hypogranular Neuts Not Reportable 09/07/20 04:28 Smudge Cells Not Reportable 09/07/20 04:28 Toxic Granulation Not Reportable 09/07/20 04:28 Toxic Vacuolation Not Reportable 09/07/20 04:28 Dohle Bodies Not Reportable 09/07/20 04:28 Pelger-Huet Anomaly Not Reportable 09/07/20 04:28 César Rods Not Reportable 09/07/20 04:28 Platelet Estimate Consistent w auto 09/07/20 04:28 Clumped Platelets Not Reportable 09/07/20 04:28 Plt Clumps, EDTA Not Reportable 09/07/20 04:28 Large Platelets Not Reportable 09/07/20 04:28 Giant Platelets Not Reportable 09/07/20 04:28 Platelet Satelliting Not Reportable 09/07/20 04:28 Plt Morphology Comment Not Reportable 09/07/20 04:28 RBC Morphology Not Reportable 09/07/20 04:28 Dimorphic RBCs Not Reportable 09/07/20 04:28 Polychromasia Not Reportable 09/07/20 04:28 Hypochromasia Not Reportable 09/07/20 04:28 Poikilocytosis Not Reportable 09/07/20 04:28 Anisocytosis 1+ 09/07/20 04:28 Microcytosis Not Reportable 09/07/20 04:28 Macrocytosis 1+ 09/07/20 04:28 Spherocytes Not Reportable 09/07/20 04:28 Pappenheimer Bodies Not Reportable 09/07/20 04:28 Sickle Cells Not Reportable 09/07/20 04:28 Target Cells Not Reportable 09/07/20 04:28 Tear Drop Cells Not Reportable 09/07/20 04:28 Ovalocytes Not Reportable 09/07/20 04:28 Helmet Cells Not Reportable 09/07/20 04:28 [place] Bodies Not Reportable 09/07/20 04:28 [place] Rings Not Reportable 09/07/20 04:28 Sukhjinder Cells Not Reportable 09/07/20 04:28 Bite Cells Not Reportable 09/07/20 04:28 Crenated Cell Not Reportable 09/07/20 04:28 Elliptocytes Not Reportable 09/07/20 04:28 Acanthocytes (Spur) Not Reportable 09/07/20 04:28 Rouleaux Not Reportable 09/07/20 04:28 Hemoglobin C Crystals Not Reportable 09/07/20 04:28 Schistocytes Not Reportable 09/07/20 04:28 Malaria parasites Not Reportable 09/07/20 04:28 Abe Bodies Not Reportable 09/07/20 04:28 Hem Pathologist Commnt No 09/07/20 04:28 PT 14.0 Sec. (12.2-14.9) 08/29/20 22:18 INR 1.03 (0.87-1.13) 08/29/20 22:18 APTT 31.1 Sec. (24.2-36.6) 08/29/20 22:18 Sodium 136 mmol/L (137-145) L D 09/09/20 05:17 Potassium 3.6 mmol/L (3.6-5.0) 09/09/20 05:17 Chloride 104.8 mmol/L (98-107) 09/09/20 05:17 Carbon Dioxide 21 mmol/L (22-30) L 09/09/20 05:17 Anion Gap 14 mmol/L 09/09/20 05:17 BUN 6 mg/dL (9-20) L 09/09/20 05:17 Creatinine 0.5 mg/dL (0.8-1.3) L 09/09/20 05:17 Estimated GFR > 60 ml/min 09/09/20 05:17 BUN/Creatinine Ratio 12 % 09/09/20 05:17 Glucose 83 mg/dL (75-100) 09/09/20 05:17 Calcium 8.0 mg/dL (8.4-10.2) L 09/09/20 05:17 Phosphorus 4.00 mg/dL (2.5-4.5) 09/03/20 05:13 Magnesium 2.00 mg/dL (1.7-2.3) 09/09/20 05:17 Total Bilirubin 0.60 mg/dL (0.1-1.2) 09/09/20 05:17 Direct Bilirubin 0.9 mg/dL (0-0.2) H 09/01/20 04:47 Indirect Bilirubin 0.9 mg/dL 09/01/20 04:47 AST 90 units/L (5-40) H 09/09/20 05:17 ALT 78 units/L (7-56) H 09/09/20 05:17 Alkaline Phosphatase 145 units/L (35-129) H 09/09/20 05:17 Total Creatine Kinase 374 units/L (55-170) H 08/29/20 22:30 Troponin T < 0.010 ng/mL (0.00-0.029) 09/01/20 04:47 Total Protein 6.0 g/dL (6.3-8.2) L 09/09/20 05:17 Albumin 2.5 g/dL (3.9-5) L 09/09/20 05:17 Albumin/Globulin Ratio 0.7 % 09/09/20 05:17 Salicylates < 0.3 mg/dL (2.8-20.0) L 08/29/20 22:18 Urine Opiates Screen Presumptive negative 08/29/20 23:45 Urine Methadone Screen Presumptive negative 08/29/20 23:45 Acetaminophen 5.0 ug/mL (10.0-30.0) L 08/29/20 22:18 Ur Barbiturates Screen Presumptive negative 08/29/20 23:45 Ur Phencyclidine Scrn Presumptive negative 08/29/20 23:45 Ur Amphetamines Screen Presumptive negative 08/29/20 23:45 U Benzodiazepines Scrn Presumptive negative 08/29/20 23:45 Urine Cocaine Screen Presumptive negative 08/29/20 23:45 U Marijuana (THC) Screen Presumptive negative 08/29/20 23:45 Drugs of Abuse Note Disclamer 08/29/20 23:45 Plasma/Serum Alcohol 0.43 % (0-0.07) H 08/29/20 22:18 Coronavirus (PCR) Negative (Negative) 09/08/20 09:27 Hepatitis A IgM Ab Non-reactive (NonReactive) 08/30/20 13:37 Hep Bs Antigen Non-reactive (Negative) 08/30/20 13:37 Hepatitis C Antibody Non-reactive (NonReactive) 08/30/20 13:37 [place]/IV: Voiding Method Condom Catheter Active Medications - Current Medications Current Medications: Generic Name Dose Route Start Last Admin Trade Name Freq PRN Reason Stop Dose Admin Acetaminophen 650 mg 08/30/20 00:19 Acetaminophen 325 Mg Tab PO Q4H PRN Pain MILD(1-3)/Fever >100.5/AMOS Albuterol 2.5 mg 08/30/20 00:19 Albuterol 2.5 Mg/3 Ml Nebu IH Q4HRT PRN Shortness Of Breath Famotidine 20 mg 08/30/20 10:00 09/09/20 09:09 Famotidine 20 Mg Tab PO 20 mg BID LEANNE Administration Sodium Chloride 1,000 mls @ 100 mls/hr 09/06/20 11:00 09/09/20 00:39 Nacl 0.9% 1000 Ml IV 100 mls/hr DIRECT LEANNE Administration Lorazepam 2 mg 09/03/20 10:00 09/08/20 17:10 Lorazepam 2 Mg/Ml Vial IV 2 mg Q4H PRN Administration Agitation Metoprolol Tartrate 5 mg 08/30/20 17:23 08/31/20 22:40 Metoprolol Tartrate 5 Mg/5 Ml Inj IV 5 mg Q4H PRN Administration Tachyarrhythmias Metoprolol Tartrate 50 mg 09/01/20 22:00 09/09/20 09:12 Metoprolol Tartrate 50 Mg Tab PO 50 mg BID LEANNE Administration Ondansetron HCl 4 mg 08/30/20 00:19 Ondansetron 4 Mg/2 Ml Inj IV Q8H PRN Nausea And Vomiting Sodium Chloride 10 ml 08/30/20 10:00 09/09/20 09:09 Sodium Chloride 0.9% 10 Ml Flush Syringe IV 10 ml BID LEANNE Administration Sodium Chloride 10 ml 08/30/20 00:19 Sodium Chloride 0.9% 10 Ml Flush Syringe IV PRN PRN LINE FLUSH Thiamine HCl 100 mg 08/31/20 10:00 09/09/20 09:09 Thiamine 100 Mg Tab PO 100 mg QDAY LEANNE Administration Vitamin B Complex/Folic Acid 1 each 08/31/20 10:00 09/09/20 09:09 Folbee Plus Cz (Folic Acid/Vit Bcomp&C/Cu/Znox) PO 1 each QDAY LEANNE Administration Nutrition/Malnutrition Assess - Dietary Evaluation Nutrition/Malnutrition Findings: Nutrition Notes Start: 09/04/20 12:22 Freq: Status: Active Protocol: Document 09/07/20 14:14 CHRIS (Rec: 09/07/20 14:18 CHRIS [id number]) Nutrition Notes Initial or Follow up Reassessment Current Diagnosis Hypertension Other Pertinent Diagnosis alcohol withdrawal and dependence, fall Current Diet Cardiac Labs/Tests Na 146 Pertinent Medications Thiamine NS at 100 ml/hr Height 5 ft 10 in Weight 71.1 kg [place] Body Weight (kg) 75.45 BMI 22.4 Weight change and time frame 17% wt loss in 9 days Weight Status Appropriate Subjective/Other Information FU for intakes. Pt drinking 100% of 2 ONS and eating 0% of meals. Percent of energy/protein needs met: 38%/63% Burn Absent Trauma Absent Current % PO Negligible Minimum of two criteria Yes Energy Intake (severe) < or equal to 50% Estimated Energy Requirement > or equal to 5 days Interpretation of Weight Loss (severe) >2% in 1 week #1 Nutrition Diagnosis Inadequate oral intake Diagnosis Progress(for reassessment Continues documentation) Is patient on ventilator? No Is Patient Ambulatory and/or Out of Bed No REE-([facility]-confined to bed) [phone] Calculation Used for Recommendations [facility] Additional Notes Protein: (0.8-1g/kg) 63-78g Fluid: 1 ml/kcal Nutrition Intervention Change Diet Order: Continue Add Supplement/Snack (indicate name/kcal Ensure Enlive QID /protein ) Provides kCal: 1,400 Provides Protein (gm) 80 Goal #1 Meet at least 75% of energy and protein needs via PO and ONS Anticipated Discharge Needs: cardiac Follow-Up By: 09/09/20 Additional Comments FU for intakes and ONS tolerance
[2020-09-09] MEDS ORDERED: LORazepam 2 MG/ML VIAL IV PRN (13:00)
[2020-09-10] MEDS: FAMOTIDINE 20 MG TAB PO SCH ×2 (11:15→22:05)
[2020-09-10] MEDS: FOLBEE PLUS CZ (FOLIC ACID/VIT BCOMP&C/CU/ZNOX) PO SCH (11:15)
[2020-09-10] MEDS: METOPROLOL TARTRATE 50 MG TAB PO SCH ×2 (11:15→22:05)
[2020-09-10] MEDS: THIAMINE 100 MG TAB PO SCH (11:15)
--- NOTE | 2020-09-10 20:17 | Progress Note ---
Assessment and Plan Assessment and plan: --Alcohol withdrawal symptoms; Current Visit: Yes Status: Acute Resolved, no tremulousness, no agitation CIWA protocol discontinued Closely monitor, Ativan low-dose as needed for agitation or tremulousness --Intermittent SVT ; resolved Current Visit: Yes Status: Acute Nonsustained SVT secondary to delirium tremens/alcohol withdrawal Echocardiogram 08/31/2020: LVEF is 50 to 55%. LV normal size, LV SF normal. Mild diastolic dysfunction. RV SF is normal. Mild MR. RVSP is 36 mmHg. Continue current rate control /antihypertensive regimen: Metoprolol 50 mg twice daily --Transaminitis; Current Visit: Yes Status: Acute Trending down, due to alcoholic hepatitis Trending down --Chronic alcohol use; Current Visit: Yes Status: Chronic Strongly advised the patient to quit alcohol intake Advised to seek alcohol rehabilitation, alcohol Anonymous Patient verbalized understanding --Alcohol liver disease; LFTs trending down Current Visit: Yes Status: Acute Secondary to chronic alcohol use Advised to quit alcohol intake LFTs trending down, GI evaluated Hepatitis panel negative --Hypokalemia; Current Visit: Yes Status: Acute . Resolved --Hypophosphatemia; resolved Current Visit: Yes Status: Acute. phosphate levels normal today Monitor electrolytes -- Alcohol intoxication/present on admission Current Visit: Yes Status: Acute Resolved, thiamine folic acid and multivitamins --Status post fall Current Visit: Yes Status: Acute PT OT recommended subacute rehab -- Facial injury Current Visit: Yes Status: Acute Face CT and cervical spine and head CT shows no acute injury. PT OT recommended subacute rehab -- Hypertension Current Visit: Yes Status: Acute Well controlled , as needed hydralazine 10 mg IV --Mild to moderate malnutrition and hypoalbuminemia; Current Visit: Yes Status: Acute Nutrition supplements and supportive care --PTSD (post-traumatic stress disorder) Current Visit: Yes Status: Acute We will monitor the patient closely. Outpatient follow-up with psych -- DVT prophylaxis; Current Visit: Yes Status: Acute SCD for DVT prophylaxis because of facial trauma. Pepcid 20 mg p.o. twice daily for GI prophylaxis. Patient is a full code DC planning per case management Awaiting placement Patient is medically stable for discharge Subjective Date of service: 09/07/20 Principal diagnosis: Alcohol withdrawal Interval history: Brief history and daily hospital course: 59-year-old male patient with significant history of chronic alcohol use was admitted through emergency room with alcohol intoxication followed by Alcohol withdrawal symptoms, placed on CIWA protocol, patient had intermittent SVT requiring chemical cardioversion, cardiology evaluated the patient and medic ations were optimized, cleared for discharge. Patient continues to have mild tremulousness currently on Ativan as needed Follow PT OT evaluation and recommendations, discharge home when medically sta ble 08/30/2020; patient is on CIWA protocols Had intermittent SVTs resolved with beta-blockers Cardiology consulted 08/31/2020; no new episodes of SVT Continues to be on CIWA protocols LFTs trending down, GI following Recommend PT OT when medically stable Hypokalemia, hypophosphatemia, replace per protocols 09/01/2020; patient had new episodes of SVT last night Requiring adenosine, metoprolol, transferred to ICU This morning patient is in sinus heart rate in 80s and 90s 09/02/2020; patient remains confused agitated at times, continue CIWA protocol 09/03/2020; continue CIWA protocol Once patient is more stable will request PT OT Will update family today 09/04/2020; hypokalemia replenished Follow PT OT evaluation recommendation DC planning per case management when medically stable possible discharge in 1 to 2 days if he comes off Ativan as needed 09/05/2020 More alert and oriented Out of bed to chair 09/06/2020 More more alert and oriented Unable to go to his home because no one is present at this point Discussed with his father and Luis Fernando Garvin's phone number is [phone] This phone number is not demographics Patient is willing to accept him tomorrow Continue IV fluids 09/07/2020 Patient is more alert and oriented Possible discharge tomorrow To discuss with Luis Fernando Garvin at [phone] More alert and responsive 09/08/2020; Patient awaiting placement 09/09/2020; awaiting placement 09/10/2020; patient is medically stable for discharge Off CIWA protocol, awaiting placement PT OT recommended subacute rehab History Interval history: I have seen examined the patient at the bedside during my morning rounds Patient's chart and medications reviewed Patient is alert and awake, no withdrawal symptoms, no tremulousness However patient complains of generalized weakness Vital signs noted Hospitalist Physical - Constitutional Vitals: Temp Pulse Resp BP Pulse Ox 98.0 F 75 18 126/91 97 09/10/20 15:10 09/10/20 15:10 09/10/20 15:10 09/10/20 15:10 09/10/20 15:10 General appearance: Present: no acute distress, well-nourished - EENT Eyes: Present: PERRL, EOM intact - Neck Neck: Present: supple, normal ROM - Respiratory Respiratory effort: normal Respiratory: bilateral: diminished, negative: rales, rhonchi, wheezing - Cardiovascular Rhythm: regular Heart Sounds: Present: S1 & S2 - Extremities Extremities: no ischemia, No edema - Abdominal General gastrointestinal: soft, non-tender, non-distended, normal bowel sounds - Integumentary Integumentary: Present: clear, warm - Psychiatric Psychiatric: appropriate mood/affect, cooperative - Neurologic Neurologic: moves all extremities HEART Score - HEART Score Troponin: Troponin T < 0.010 ng/mL (0.00-0.029) 09/01/20 04:47 Results - Labs CBC & Chem 7: 09/07/20 04:28 09/09/20 05:17 Labs: Laboratory Last Values WBC 4.1 K/mm3 (4.5-11.0) L 09/07/20 04:28 RBC 4.00 M/mm3 (3.65-5.03) 09/07/20 04:28 Hgb 13.7 gm/dl (11.8-15.2) 09/07/20 04:28 Hct 40.0 % (35.5-45.6) 09/07/20 04:28 MCV 100 fl (84-94) H 09/07/20 04:28 MCH 34 pg (28-32) H 09/07/20 04:28 MCHC 34 % (32-34) 09/07/20 04:28 RDW 13.5 % (13.2-15.2) 09/07/20 04:28 Plt Count 197 K/mm3 (140-440) 09/07/20 04:28 Lymph % (Auto) 18.4 % (13.4-35.0) 08/31/20 03:37 [place] % (Auto) Controller Instructor 09/07/20 04:28 Eos % (Auto) 0.4 % (0.0-4.3) 08/31/20 03:37 Baso % (Auto) 1.2 % (0.0-1.8) 08/31/20 03:37 Lymph # (Auto) 0.8 K/mm3 (1.2-5.4) L 08/31/20 03:37 [place] # (Auto) 0.6 K/mm3 (0.0-0.8) 08/31/20 03:37 Eos # (Auto) 0.0 K/mm3 (0.0-0.4) 08/31/20 03:37 Baso # (Auto) 0.1 K/mm3 (0.0-0.1) 08/31/20 03:37 Add Manual Diff Complete 09/07/20 04:28 Total Counted 100 09/07/20 04:28 Seg Neutrophils % 66.7 % (40.0-70.0) 08/31/20 03:37 Seg Neuts % (Manual) 59.0 % (40.0-70.0) 09/07/20 04:28 Lymphocytes % (Manual) 27.0 % (13.4-35.0) 09/07/20 04:28 Monocytes % (Manual) 13.0 % (0.0-7.3) H 09/07/20 04:28 Basophils % (Manual) 1.0 % (0.0-1.8) 09/07/20 04:28 Nucleated RBC % Not Reportable 09/07/20 04:28 Seg Neutrophils # 3.0 K/mm3 (1.8-7.7) 08/31/20 03:37 Seg Neutrophils # Man 2.4 K/mm3 (1.8-7.7) 09/07/20 04:28 Band Neutrophils # 0.0 K/mm3 09/07/20 04:28 Lymphocytes # (Manual) 1.1 K/mm3 (1.2-5.4) L 09/07/20 04:28 Abs React Lymphs (Man) 0.0 K/mm3 09/07/20 04:28 Monocytes # (Manual) 0.5 K/mm3 (0.0-0.8) 09/07/20 04:28 Eosinophils # (Manual) 0.0 K/mm3 (0.0-0.4) 09/07/20 04:28 Basophils # (Manual) 0.0 K/mm3 (0.0-0.1) 09/07/20 04:28 Metamyelocytes # 0.0 K/mm3 09/07/20 04:28 Myelocytes # 0.0 K/mm3 09/07/20 04:28 Promyelocytes # 0.0 K/mm3 09/07/20 04:28 Blast Cells # 0.0 K/mm3 09/07/20 04:28 WBC Morphology Not Reportable 09/07/20 04:28 Hypersegmented Neuts Not Reportable 09/07/20 04:28 Hyposegmented Neuts Not Reportable 09/07/20 04:28 Hypogranular Neuts Not Reportable 09/07/20 04:28 Smudge Cells Not Reportable 09/07/20 04:28 Toxic Granulation Not Reportable 09/07/20 04:28 Toxic Vacuolation Not Reportable 09/07/20 04:28 Dohle Bodies Not Reportable 09/07/20 04:28 Pelger-Huet Anomaly Not Reportable 09/07/20 04:28 César Rods Not Reportable 09/07/20 04:28 Platelet Estimate Consistent w auto 09/07/20 04:28 Clumped Platelets Not Reportable 09/07/20 04:28 Plt Clumps, EDTA Not Reportable 09/07/20 04:28 Large Platelets Not Reportable 09/07/20 04:28 Giant Platelets Not Reportable 09/07/20 04:28 Platelet Satelliting Not Reportable 09/07/20 04:28 Plt Morphology Comment Not Reportable 09/07/20 04:28 RBC Morphology Not Reportable 09/07/20 04:28 Dimorphic RBCs Not Reportable 09/07/20 04:28 Polychromasia Not Reportable 09/07/20 04:28 Hypochromasia Not Reportable 09/07/20 04:28 Poikilocytosis Not Reportable 09/07/20 04:28 Anisocytosis 1+ 09/07/20 04:28 Microcytosis Not Reportable 09/07/20 04:28 Macrocytosis 1+ 09/07/20 04:28 Spherocytes Not Reportable 09/07/20 04:28 Pappenheimer Bodies Not Reportable 09/07/20 04:28 Sickle Cells Not Reportable 09/07/20 04:28 Target Cells Not Reportable 09/07/20 04:28 Tear Drop Cells Not Reportable 09/07/20 04:28 Ovalocytes Not Reportable 09/07/20 04:28 Helmet Cells Not Reportable 09/07/20 04:28 Singh-[place]in[place] Bodies Not Reportable 09/07/20 04:28 [place] Rings Not Reportable 09/07/20 04:28 [place] Cells Not Reportable 09/07/20 04:28 Bite Cells Not Reportable 09/07/20 04:28 Crenated Cell Not Reportable 09/07/20 04:28 Elliptocytes Not Reportable 09/07/20 04:28 Acanthocytes (Spur) Not Reportable 09/07/20 04:28 Rouleaux Not Reportable 09/07/20 04:28 Hemoglobin C Crystals Not Reportable 09/07/20 04:28 Schistocytes Not Reportable 09/07/20 04:28 Malaria parasites Not Reportable 09/07/20 04:28 Abe Bodies Not Reportable 09/07/20 04:28 Hem Pathologist Commnt No 09/07/20 04:28 PT 14.0 Sec. (12.2-14.9) 08/29/20 22:18 INR 1.03 (0.87-1.13) 08/29/20 22:18 APTT 31.1 Sec. (24.2-36.6) 08/29/20 22:18 Sodium 136 mmol/L (137-145) L D 09/09/20 05:17 Potassium 3.6 mmol/L (3.6-5.0) 09/09/20 05:17 Chloride 104.8 mmol/L (98-107) 09/09/20 05:17 Carbon Dioxide 21 mmol/L (22-30) L 09/09/20 05:17 Anion Gap 14 mmol/L 09/09/20 05:17 BUN 6 mg/dL (9-20) L 09/09/20 05:17 Creatinine 0.5 mg/dL (0.8-1.3) L 09/09/20 05:17 Estimated GFR > 60 ml/min 09/09/20 05:17 BUN/Creatinine Ratio 12 % 09/09/20 05:17 Glucose 83 mg/dL (75-100) 09/09/20 05:17 Calcium 8.0 mg/dL (8.4-10.2) L 09/09/20 05:17 Phosphorus 4.00 mg/dL (2.5-4.5) 09/03/20 05:13 Magnesium 2.00 mg/dL (1.7-2.3) 09/09/20 05:17 Total Bilirubin 0.60 mg/dL (0.1-1.2) 09/09/20 05:17 Direct Bilirubin 0.9 mg/dL (0-0.2) H 09/01/20 04:47 Indirect Bilirubin 0.9 mg/dL 09/01/20 04:47 AST 90 units/L (5-40) H 09/09/20 05:17 ALT 78 units/L (7-56) H 09/09/20 05:17 Alkaline Phosphatase 145 units/L (35-129) H 09/09/20 05:17 Total Creatine Kinase 374 units/L (55-170) H 08/29/20 22:30 Troponin T < 0.010 ng/mL (0.00-0.029) 09/01/20 04:47 Total Protein 6.0 g/dL (6.3-8.2) L 09/09/20 05:17 Albumin 2.5 g/dL (3.9-5) L 09/09/20 05:17 Albumin/Globulin Ratio 0.7 % 09/09/20 05:17 Salicylates < 0.3 mg/dL (2.8-20.0) L 08/29/20 22:18 Urine Opiates Screen Presumptive negative 08/29/20 23:45 Urine Methadone Screen Presumptive negative 08/29/20 23:45 Acetaminophen 5.0 ug/mL (10.0-30.0) L 08/29/20 22:18 Ur Barbiturates Screen Presumptive negative 08/29/20 23:45 Ur Phencyclidine Scrn Presumptive negative 08/29/20 23:45 Ur Amphetamines Screen Presumptive negative 08/29/20 23:45 U Benzodiazepines Scrn Presumptive negative 08/29/20 23:45 Urine Cocaine Screen Presumptive negative 08/29/20 23:45 U Marijuana (THC) Screen Presumptive negative 08/29/20 23:45 Drugs of Abuse Note Disclamer 08/29/20 23:45 Plasma/Serum Alcohol 0.43 % (0-0.07) H 08/29/20 22:18 Coronavirus (PCR) Negative (Negative) 09/08/20 09:27 Hepatitis A IgM Ab Non-reactive (NonReactive) 08/30/20 13:37 Hep Bs Antigen Non-reactive (Negative) 08/30/20 13:37 Hepatitis C Antibody Non-reactive (NonReactive) 08/30/20 13:37 [place]/IV: Voiding Method Condom Catheter Active Medications - Current Medications Current Medications: Generic Name Dose Route Start Last Admin Trade Name Freq PRN Reason Stop Dose Admin Acetaminophen 650 mg 08/30/20 00:19 Acetaminophen 325 Mg Tab PO Q4H PRN Pain MILD(1-3)/Fever >100.5/AMOS Albuterol 2.5 mg 08/30/20 00:19 Albuterol 2.5 Mg/3 Ml Nebu IH Q4HRT PRN Shortness Of Breath Famotidine 20 mg 08/30/20 10:00 09/10/20 11:15 Famotidine 20 Mg Tab PO 20 mg BID LEANNE Administration Lorazepam 2 mg 09/09/20 13:00 Lorazepam 2 Mg/Ml Vial IV Q8H PRN Agitation Metoprolol Tartrate 5 mg 08/30/20 17:23 08/31/20 22:40 Metoprolol Tartrate 5 Mg/5 Ml Inj IV 5 mg Q4H PRN Administration Tachyarrhythmias Metoprolol Tartrate 50 mg 09/01/20 22:00 09/10/20 11:15 Metoprolol Tartrate 50 Mg Tab PO 50 mg BID LEANNE Administration Ondansetron HCl 4 mg 08/30/20 00:19 Ondansetron 4 Mg/2 Ml Inj IV Q8H PRN Nausea And Vomiting Sodium Chloride 10 ml 08/30/20 10:00 09/10/20 11:15 Sodium Chloride 0.9% 10 Ml Flush Syringe IV 10 ml BID LEANNE Administration Sodium Chloride 10 ml 08/30/20 00:19 Sodium Chloride 0.9% 10 Ml Flush Syringe IV PRN PRN LINE FLUSH Thiamine HCl 100 mg 08/31/20 10:00 09/10/20 11:15 Thiamine 100 Mg Tab PO 100 mg QDAY LEANNE Administration Vitamin B Complex/Folic Acid 1 each 08/31/20 10:00 09/10/20 11:15 Folbee Plus Cz (Folic Acid/Vit Bcomp&C/Cu/Znox) PO 1 each QDAY LEANNE Administration Nutrition/Malnutrition Assess - Dietary Evaluation Nutrition/Malnutrition Findings: Nutrition Notes Start: 09/04/20 12:22 Freq: Status: Active Protocol: Document 09/09/20 13:03 CHRIS (Rec: 09/09/20 13:06 CHRIS [id number]) Nutrition Notes Initial or Follow up Reassessment Current Diagnosis Hypertension Other Pertinent Diagnosis alcohol withdrawal and dependence, fall Current Diet Cardiac Labs/Tests Na 136 Pertinent Medications NS at 100 ml/hr Height 5 ft 10 in Weight 71.3 kg [place] Body Weight (kg) 75.45 BMI 22.5 Weight Status Appropriate Subjective/Other Information Pt drinking 100% of 3 ONS daily. Unopened ONS at bedside . Pt not eating. Percent of energy/protein needs met: 57%/95% Burn Absent Trauma Absent Current % PO Negligible Minimum of two criteria Yes Energy Intake (severe) < or equal to 50% Estimated Energy Requirement > or equal to 5 days Interpretation of Weight Loss (severe) >2% in 1 week #1 Nutrition Diagnosis Inadequate oral intake Diagnosis Progress(for reassessment Continues documentation) Is patient on ventilator? No Is Patient Ambulatory and/or Out of Bed No REE-(Timber-St. Jeor-confined to bed) 1840.008 Calculation Used for Recommendations Timber-St or Additional Notes Protein: (0.8-1g/kg) 63-78g Fluid: 1 ml/kcal Nutrition Intervention Change Diet Order: Continue Add Supplement/Snack (indicate name/kcal Ensure Enlive TID /protein ) Provides kCal: 1,050 Provides Protein (gm) 60 Goal #1 Meet at least 75% of energy and protein needs via PO and ONS Anticipated Discharge Needs: cardiac Follow-Up By: 09/14/20 Additional Comments FU for intakes and ONS tolerance
[2020-09-11 05:29] LABS: Alanine Aminotransferase 73 units/L (7-56); Albumin 2.8 g/dL (3.9-5); Blood Urea Nitrogen 10 mg/dL (9-20); Calcium 9.1 mg/dL (8.4-10.2); Hemolysis Index 190
[2020-09-11 05:39] LABS: BUN/Creatinine Ratio 17
--- NOTE | 2020-09-11 10:01 | Progress Note ---
Assessment and Plan Assessment and plan: -Alcohol withdrawal symptoms; Current Visit: Yes Status: Acute Resolved, no tremulousness, no agitation CIWA protocol discontinued Closely monitor, Ativan low-dose as needed for agitation or tremulousness --Intermittent SVT ; resolved Current Visit: Yes Status: Acute Nonsustained SVT secondary to delirium tremens/alcohol withdrawal Echocardiogram 08/31/2020: LVEF is 50 to 55%. LV normal size, LV SF normal. Mild diastolic dysfunction. RV SF is normal. Mild MR. RVSP is 36 mmHg. Continue current rate control /antihypertensive regimen: Metoprolol 50 mg twice daily --Transaminitis; Current Visit: Yes Status: Acute Trending down, due to alcoholic hepatitis Trending down --Chronic alcohol use; Current Visit: Yes Status: Chronic Strongly advised the patient to quit alcohol intake Advised to seek alcohol rehabilitation, alcohol Anonymous Patient verbalized understanding --Alcohol liver disease; LFTs trending down Current Visit: Yes Status: Acute Secondary to chronic alcohol use Advised to quit alcohol intake LFTs trending down, GI evaluated Hepatitis panel negative --Hypokalemia; Current Visit: Yes Status: Acute . Resolved --Hypophosphatemia; resolved Current Visit: Yes Status: Acute. phosphate levels normal today Monitor electrolytes -- Alcohol intoxication/present on admission Current Visit: Yes Status: Acute Resolved, thiamine folic acid and multivitamins --Status post fall Current Visit: Yes Status: Acute PT OT recommended subacute rehab -- Facial injury Current Visit: Yes Status: Acute Face CT and cervical spine and head CT shows no acute injury. PT OT recommended subacute rehab -- Hypertension Current Visit: Yes Status: Acute Well controlled , as needed hydralazine 10 mg IV --Mild to moderate malnutrition and hypoalbuminemia; Current Visit: Yes Status: Acute Nutrition supplements and supportive care --PTSD (post-traumatic stress disorder) Current Visit: Yes Status: Acute We will monitor the patient closely. Outpatient follow-up with psych -- DVT prophylaxis; Current Visit: Yes Status: Acute SCD for DVT prophylaxis because of facial trauma. Pepcid 20 mg p.o. twice daily for GI prophylaxis. Patient is a full code DC planning per case management Awaiting placement Patient is medically stable for discharge Subjective Date of service: 09/07/20 Principal diagnosis: Alcohol withdrawal Interval history: Brief history and daily hospital course: 59-year-old male patient with significant history of chronic alcohol use was admitted through emergency room with alcohol intoxication followed by Alcohol withdrawal symptoms, placed on CIWA protocol, patient had intermittent SVT requiring chemical cardioversion, cardiology evaluated the patient and medications were optimized, cleared for discharge. Patient continues to have mild tremulousness currently on Ativan as needed Follow PT OT evaluation and recommendations, discharge home when medically stab le 08/30/2020; patient is on CIWA protocols Had intermittent SVTs resolved with beta-blockers Cardiology consulted 08/31/2020; no new episodes of SVT Continues to be on CIWA protocols LFTs trending down, GI following Recommend PT OT when medically stable Hypokalemia, hypophosphatemia, replace per protocols 09/01/2020; patient had new episodes of SVT last night Requiring adenosine, metoprolol, transferred to ICU This morning patient is in sinus heart rate in 80s and 90s 09/02/2020; patient remains confused agitated at times, continue CIWA protocol 09/03/2020; continue CIWA protocol Once patient is more stable will request PT OT Will update family today 09/04/2020; hypokalemia replenished Follow PT OT evaluation recommendation DC planning per case management when medically stable possible discharge in 1 to 2 days if he comes off Ativan as needed 09/05/2020 More alert and oriented Out of bed to chair 09/06/2020 More more alert and oriented Unable to go to his home because no one is present at this point Discussed with his father and Luis Fernando Garvin's phone number is [phone] This phone number is not demographics Patient is willing to accept him tomorrow Continue IV fluids 09/07/2020 Patient is more alert and oriented Possible discharge tomorrow To discuss with Luis Fernando Garvin at [phone] More alert and responsive 09/08/2020; Patient awaiting placement 09/09/2020; awaiting placement 09/10/2020; patient is medically stable for discharge Off CIWA protocol, awaiting placement PT OT recommended subacute rehab 09/07/2020 Patient medically stable for discharge Awaiting placement History Interval history: Patient has no new complaints Hospitalist Physical - Physical exam Narrative exam: Gen: Not in acute distress, lying in bed HEENT: Normocephalic, atraumatic Neck : supple, no JVD Heart:S1 and S2 reg, no murmurs, rubs or gallop Lungs: clear to auscultation bilaterally, no wheeze Abd: Soft , non tender, non distended, normal bowel sounds Ext: No edema, no clubbing, no cyanosis Neuro: Awake, - Constitutional Vitals: Temp Pulse Resp BP Pulse Ox 97.5 F L 75 16 148/75 94 09/11/20 00:21 09/10/20 22:05 09/11/20 00:21 09/11/20 00:21 09/11/20 08:57 General appearance: Present: no acute distress, well-nourished HEART Score - HEART Score Troponin: Troponin T < 0.010 ng/mL (0.00-0.029) 09/01/20 04:47 Results - Labs CBC & Chem 7: 09/07/20 04:28 09/11/20 04:44 Labs: Laboratory Last Values WBC 4.1 K/mm3 (4.5-11.0) L 09/07/20 04:28 RBC 4.00 M/mm3 (3.65-5.03) 09/07/20 04:28 Hgb 13.7 gm/dl (11.8-15.2) 09/07/20 04:28 Hct 40.0 % (35.5-45.6) 09/07/20 04:28 MCV 100 fl (84-94) H 09/07/20 04:28 MCH 34 pg (28-32) H 09/07/20 04:28 MCHC 34 % (32-34) 09/07/20 04:28 RDW 13.5 % (13.2-15.2) 09/07/20 04:28 Plt Count 197 K/mm3 (140-440) 09/07/20 04:28 Lymph % (Auto) 18.4 % (13.4-35.0) 08/31/20 03:37 [place] % (Auto) Oil Expeller 09/07/20 04:28 Eos % (Auto) 0.4 % (0.0-4.3) 08/31/20 03:37 Baso % (Auto) 1.2 % (0.0-1.8) 08/31/20 03:37 Lymph # (Auto) 0.8 K/mm3 (1.2-5.4) L 08/31/20 03:37 [place] # (Auto) 0.6 K/mm3 (0.0-0.8) 08/31/20 03:37 Eos # (Auto) 0.0 K/mm3 (0.0-0.4) 08/31/20 03:37 Baso # (Auto) 0.1 K/mm3 (0.0-0.1) 08/31/20 03:37 Add Manual Diff Complete 09/07/20 04:28 Total Counted 100 09/07/20 04:28 Seg Neutrophils % 66.7 % (40.0-70.0) 08/31/20 03:37 Seg Neuts % (Manual) 59.0 % (40.0-70.0) 09/07/20 04:28 Lymphocytes % (Manual) 27.0 % (13.4-35.0) 09/07/20 04:28 Monocytes % (Manual) 13.0 % (0.0-7.3) H 09/07/20 04:28 Basophils % (Manual) 1.0 % (0.0-1.8) 09/07/20 04:28 Nucleated RBC % Not Reportable 09/07/20 04:28 Seg Neutrophils # 3.0 K/mm3 (1.8-7.7) 08/31/20 03:37 Seg Neutrophils # Man 2.4 K/mm3 (1.8-7.7) 09/07/20 04:28 Band Neutrophils # 0.0 K/mm3 09/07/20 04:28 Lymphocytes # (Manual) 1.1 K/mm3 (1.2-5.4) L 09/07/20 04:28 Abs React Lymphs (Man) 0.0 K/mm3 09/07/20 04:28 Monocytes # (Manual) 0.5 K/mm3 (0.0-0.8) 09/07/20 04:28 Eosinophils # (Manual) 0.0 K/mm3 (0.0-0.4) 09/07/20 04:28 Basophils # (Manual) 0.0 K/mm3 (0.0-0.1) 09/07/20 04:28 Metamyelocytes # 0.0 K/mm3 09/07/20 04:28 Myelocytes # 0.0 K/mm3 09/07/20 04:28 Promyelocytes # 0.0 K/mm3 09/07/20 04:28 Blast Cells # 0.0 K/mm3 09/07/20 04:28 WBC Morphology Not Reportable 09/07/20 04:28 Hypersegmented Neuts Not Reportable 09/07/20 04:28 Hyposegmented Neuts Not Reportable 09/07/20 04:28 Hypogranular Neuts Not Reportable 09/07/20 04:28 Smudge Cells Not Reportable 09/07/20 04:28 Toxic Granulation Not Reportable 09/07/20 04:28 Toxic Vacuolation Not Reportable 09/07/20 04:28 Dohle Bodies Not Reportable 09/07/20 04:28 Pelger-Huet Anomaly Not Reportable 09/07/20 04:28 César Rods Not Reportable 09/07/20 04:28 Platelet Estimate Consistent w auto 09/07/20 04:28 Clumped Platelets Not Reportable 09/07/20 04:28 Plt Clumps, EDTA Not Reportable 09/07/20 04:28 Large Platelets Not Reportable 09/07/20 04:28 Giant Platelets Not Reportable 09/07/20 04:28 Platelet Satelliting Not Reportable 09/07/20 04:28 Plt Morphology Comment Not Reportable 09/07/20 04:28 RBC Morphology Not Reportable 09/07/20 04:28 Dimorphic RBCs Not Reportable 09/07/20 04:28 Polychromasia Not Reportable 09/07/20 04:28 Hypochromasia Not Reportable 09/07/20 04:28 Poikilocytosis Not Reportable 09/07/20 04:28 Anisocytosis 1+ 09/07/20 04:28 Microcytosis Not Reportable 09/07/20 04:28 Macrocytosis 1+ 09/07/20 04:28 Spherocytes Not Reportable 09/07/20 04:28 Pappenheimer Bodies Not Reportable 09/07/20 04:28 Sickle Cells Not Reportable 09/07/20 04:28 Target Cells Not Reportable 09/07/20 04:28 Tear Drop Cells Not Reportable 09/07/20 04:28 Ovalocytes Not Reportable 09/07/20 04:28 Helmet Cells Not Reportable 09/07/20 04:28 [place] Bodies Not Reportable 09/07/20 04:28 [place] Rings Not Reportable 09/07/20 04:28 [place] Cells Not Reportable 09/07/20 04:28 Bite Cells Not Reportable 09/07/20 04:28 Crenated Cell Not Reportable 09/07/20 04:28 Elliptocytes Not Reportable 09/07/20 04:28 Acanthocytes (Spur) Not Reportable 09/07/20 04:28 Rouleaux Not Reportable 09/07/20 04:28 Hemoglobin C Crystals Not Reportable 09/07/20 04:28 Schistocytes Not Reportable 09/07/20 04:28 Malaria parasites Not Reportable 09/07/20 04:28 Abe Bodies Not Reportable 09/07/20 04:28 Hem Pathologist Commnt No 09/07/20 04:28 PT 14.0 Sec. (12.2-14.9) 08/29/20 22:18 INR 1.03 (0.87-1.13) 08/29/20 22:18 APTT 31.1 Sec. (24.2-36.6) 08/29/20 22:18 Sodium 139 mmol/L (137-145) 09/11/20 04:44 Potassium 4.0 mmol/L (3.6-5.0) 09/11/20 04:44 Chloride 105.6 mmol/L (98-107) 09/11/20 04:44 Carbon Dioxide 21 mmol/L (22-30) L 09/11/20 04:44 Anion Gap 16 mmol/L 09/11/20 04:44 BUN 10 mg/dL (9-20) 09/11/20 04:44 Creatinine 0.6 mg/dL (0.8-1.3) L 09/11/20 04:44 Estimated GFR > 60 ml/min 09/11/20 04:44 BUN/Creatinine Ratio 17 % 09/11/20 04:44 Glucose 83 mg/dL (75-100) 09/11/20 04:44 Calcium 9.1 mg/dL (8.4-10.2) 09/11/20 04:44 Phosphorus 4.00 mg/dL (2.5-4.5) 09/03/20 05:13 Magnesium 2.00 mg/dL (1.7-2.3) 09/09/20 05:17 Total Bilirubin 0.60 mg/dL (0.1-1.2) 09/11/20 04:44 Direct Bilirubin 0.9 mg/dL (0-0.2) H 09/01/20 04:47 Indirect Bilirubin 0.9 mg/dL 09/01/20 04:47 AST 93 units/L (5-40) H 09/11/20 04:44 ALT 73 units/L (7-56) H 09/11/20 04:44 Alkaline Phosphatase 139 units/L (35-129) H 09/11/20 04:44 Total Creatine Kinase 374 units/L (55-170) H 08/29/20 22:30 Troponin T < 0.010 ng/mL (0.00-0.029) 09/01/20 04:47 Total Protein 6.9 g/dL (6.3-8.2) 09/11/20 04:44 Albumin 2.8 g/dL (3.9-5) L 09/11/20 04:44 Albumin/Globulin Ratio 0.7 % 09/11/20 04:44 Salicylates < 0.3 mg/dL (2.8-20.0) L 08/29/20 22:18 Urine Opiates Screen Presumptive negative 08/29/20 23:45 Urine Methadone Screen Presumptive negative 08/29/20 23:45 Acetaminophen 5.0 ug/mL (10.0-30.0) L 08/29/20 22:18 Ur Barbiturates Screen Presumptive negative 08/29/20 23:45 Ur Phencyclidine Scrn Presumptive negative 08/29/20 23:45 Ur Amphetamines Screen Presumptive negative 08/29/20 23:45 U Benzodiazepines Scrn Presumptive negative 08/29/20 23:45 Urine Cocaine Screen Presumptive negative 08/29/20 23:45 U Marijuana (THC) Screen Presumptive negative 08/29/20 23:45 Drugs of Abuse Note Disclamer 08/29/20 23:45 Plasma/Serum Alcohol 0.43 % (0-0.07) H 08/29/20 22:18 Coronavirus (PCR) Negative (Negative) 09/08/20 09:27 Hepatitis A IgM Ab Non-reactive (NonReactive) 08/30/20 13:37 Hep Bs Antigen Non-reactive (Negative) 08/30/20 13:37 Hepatitis C Antibody Non-reactive (NonReactive) 08/30/20 13:37 [place]/IV: Voiding Method Condom Catheter Active Medications - Current Medications Current Medications: Generic Name Dose Route Start Last Admin Trade Name Freq PRN Reason Stop Dose Admin Acetaminophen 650 mg 08/30/20 00:19 Acetaminophen 325 Mg Tab PO Q4H PRN Pain MILD(1-3)/Fever >100.5/AMOS Albuterol 2.5 mg 08/30/20 00:19 Albuterol 2.5 Mg/3 Ml Nebu IH Q4HRT PRN Shortness Of Breath Famotidine 20 mg 08/30/20 10:00 09/10/20 22:05 Famotidine 20 Mg Tab PO 20 mg BID LEANNE Administration Metoprolol Tartrate 5 mg 08/30/20 17:23 08/31/20 22:40 Metoprolol Tartrate 5 Mg/5 Ml Inj IV 5 mg Q4H PRN Administration Tachyarrhythmias Metoprolol Tartrate 50 mg 09/01/20 22:00 09/10/20 22:05 Metoprolol Tartrate 50 Mg Tab PO 50 mg BID LEANNE Administration Ondansetron HCl 4 mg 08/30/20 00:19 Ondansetron 4 Mg/2 Ml Inj IV Q8H PRN Nausea And Vomiting Sodium Chloride 10 ml 08/30/20 10:00 09/10/20 22:06 Sodium Chloride 0.9% 10 Ml Flush Syringe IV 10 ml BID LEANNE Administration Sodium Chloride 10 ml 08/30/20 00:19 Sodium Chloride 0.9% 10 Ml Flush Syringe IV PRN PRN LINE FLUSH Thiamine HCl 100 mg 08/31/20 10:00 09/10/20 11:15 Thiamine 100 Mg Tab PO 100 mg QDAY LEANNE Administration Vitamin B Complex/Folic Acid 1 each 08/31/20 10:00 09/10/20 11:15 Folbee Plus Cz (Folic Acid/Vit Bcomp&C/Cu/Znox) PO 1 each QDAY LEANNE Administration Nutrition/Malnutrition Assess - Dietary Evaluation Nutrition/Malnutrition Findings: Nutrition Notes Start: 09/04/20 12:22 Freq: Status: Active Protocol: Document 09/09/20 13:03 CHRIS (Rec: 09/09/20 13:06 CHRIS [id number]) Nutrition Notes Initial or Follow up Reassessment Current Diagnosis Hypertension Other Pertinent Diagnosis alcohol withdrawal and dependence, fall Current Diet Cardiac Labs/Tests Na 136 Pertinent Medications NS at 100 ml/hr Height 5 ft 10 in Weight 71.3 kg Pepin Body Weight (kg) 75.45 BMI 22.5 Weight Status Appropriate Subjective/Other Information Pt drinking 100% of 3 ONS daily. Unopened ONS at bedside . Pt not eating. Percent of energy/protein needs met: 57%/95% Burn Absent Trauma Absent Current % PO Negligible Minimum of two criteria Yes Energy Intake (severe) < or equal to 50% Estimated Energy Requirement > or equal to 5 days Interpretation of Weight Loss (severe) >2% in 1 week #1 Nutrition Diagnosis Inadequate oral intake Diagnosis Progress(for reassessment Continues documentation) Is patient on ventilator? No Is Patient Ambulatory and/or Out of Bed No REE-([facility]-confined to bed) 1840.008 Calculation Used for Recommendations [facility] Additional Notes Protein: (0.8-1g/kg) 63-78g Fluid: 1 ml/kcal Nutrition Intervention Change Diet Order: Continue Add Supplement/Snack (indicate name/kcal Ensure Enlive TID /protein ) Provides kCal: 1,050 Provides Protein (gm) 60 Goal #1 Meet at least 75% of energy and protein needs via PO and ONS Anticipated Discharge Needs: cardiac Follow-Up By: 09/14/20 Additional Comments FU for intakes and ONS tolerance
[2020-09-11] MEDS: METOPROLOL TARTRATE 50 MG TAB PO SCH ×2 (11:54→23:14)
[2020-09-11] MEDS: FAMOTIDINE 20 MG TAB PO SCH ×2 (11:54→23:13)
[2020-09-11] MEDS: THIAMINE 100 MG TAB PO SCH (11:54)
[2020-09-11] MEDS: FOLBEE PLUS CZ (FOLIC ACID/VIT BCOMP&C/CU/ZNOX) PO SCH (11:54)
--- NOTE | 2020-09-12 09:22 | Progress Note ---
Assessment and Plan Assessment and plan: -Alcohol withdrawal symptoms; Current Visit: Yes Status: Acute Resolved, no tremulousness, no agitation CIWA protocol discontinued Closely monitor, Ativan low-dose as needed for agitation or tremulousness --Intermittent SVT ; resolved Current Visit: Yes Status: Acute Nonsustained SVT secondary to delirium tremens/alcohol withdrawal Echocardiogram 08/31/2020: LVEF is 50 to 55%. LV normal size, LV SF normal. Mild diastolic dysfunction. RV SF is normal. Mild MR. RVSP is 36 mmHg. Continue current rate control /antihypertensive regimen: Metoprolol 50 mg twice daily --Transaminitis; Current Visit: Yes Status: Acute Trending down, due to alcoholic hepatitis Trending down --Chronic alcohol use; Current Visit: Yes Status: Chronic Strongly advised the patient to quit alcohol intake Advised to seek alcohol rehabilitation, alcohol Anonymous Patient verbalized understanding --Alcohol liver disease; LFTs trending down Current Visit: Yes Status: Acute Secondary to chronic alcohol use Advised to quit alcohol intake LFTs trending down, GI evaluated Hepatitis panel negative --Hypokalemia; Current Visit: Yes Status: Acute . Resolved --Hypophosphatemia; resolved Current Visit: Yes Status: Acute. phosphate levels normal today Monitor electrolytes -- Alcohol intoxication/present on admission Current Visit: Yes Status: Acute Resolved, thiamine folic acid and multivitamins --Status post fall Current Visit: Yes Status: Acute PT OT recommended subacute rehab -- Facial injury Current Visit: Yes Status: Acute Face CT and cervical spine and head CT shows no acute injury. PT OT recommended subacute rehab -- Hypertension Current Visit: Yes Status: Acute Well controlled , as needed hydralazine 10 mg IV --Mild to moderate malnutrition and hypoalbuminemia; Current Visit: Yes Status: Acute Nutrition supplements and supportive care --PTSD (post-traumatic stress disorder) Current Visit: Yes Status: Acute We will monitor the patient closely. Outpatient follow-up with psych -- DVT prophylaxis; Current Visit: Yes Status: Acute SCD for DVT prophylaxis because of facial trauma. Pepcid 20 mg p.o. twice daily for GI prophylaxis. Patient is a full code DC planning per case management Awaiting placement Patient is medically stable for discharge Subjective Date of service: 09/07/20 Principal diagnosis: Alcohol withdrawal Interval history: Brief history and daily hospital course: 59-year-old male patient with significant history of chronic alcohol use was admitted through emergency room with alcohol intoxication followed by Alcohol withdrawal symptoms, placed on CIWA protocol, patient had intermittent SVT requiring chemical cardioversion, cardiology evaluated the patient and medications were optimized, cleared for discharge. Patient continues to have mild tremulousness currently on Ativan as needed Follow PT OT evaluation and recommendations, discharge home when medically stab le 08/30/2020; patient is on CIWA protocols Had intermittent SVTs resolved with beta-blockers Cardiology consulted 08/31/2020; no new episodes of SVT Continues to be on CIWA protocols LFTs trending down, GI following Recommend PT OT when medically stable Hypokalemia, hypophosphatemia, replace per protocols 09/01/2020; patient had new episodes of SVT last night Requiring adenosine, metoprolol, transferred to ICU This morning patient is in sinus heart rate in 80s and 90s 09/02/2020; patient remains confused agitated at times, continue CIWA protocol 09/03/2020; continue CIWA protocol Once patient is more stable will request PT OT Will update family today 09/04/2020; hypokalemia replenished Follow PT OT evaluation recommendation DC planning per case management when medically stable possible discharge in 1 to 2 days if he comes off Ativan as needed 09/05/2020 More alert and oriented Out of bed to chair 09/06/2020 More more alert and oriented Unable to go to his home because no one is present at this point Discussed with his father and Luis Fernando Garvin's phone number is [phone] This phone number is not demographics Patient is willing to accept him tomorrow Continue IV fluids 09/07/2020 Patient is more alert and oriented Possible discharge tomorrow To discuss with Luis Fernando Garvin at [phone] More alert and responsive 09/08/2020; Patient awaiting placement 09/09/2020; awaiting placement 09/10/2020; patient is medically stable for discharge Off CIWA protocol, awaiting placement PT OT recommended subacute rehab 09/11/2020 Patient medically stable for discharge Awaiting placement 09/12/20 Patient came with alcohol withdrawal symptoms, stabilized. He is stable for discharge. Awaiting placement. History Interval history: Patient has no new complaints Hospitalist Physical - Physical exam Narrative exam: Gen: Not in acute distress, lying in bed HEENT: Normocephalic, atraumatic Neck : supple, no JVD Heart:S1 and S2 reg, no murmurs, rubs or gallop Lungs: clear to auscultation bilaterally, no wheeze Abd: Soft , non tender, non distended, normal bowel sounds Ext: No edema, no clubbing, no cyanosis Neuro: Awake, - Constitutional Vitals: Temp Pulse Resp BP Pulse Ox 98.0 F 90 20 147/97 98 09/12/20 08:39 09/12/20 08:39 09/12/20 08:39 09/12/20 08:39 09/12/20 09:14 General appearance: Present: no acute distress, well-nourished HEART Score - HEART Score Troponin: Troponin T < 0.010 ng/mL (0.00-0.029) 09/01/20 04:47 Results - Labs CBC & Chem 7: 09/07/20 04:28 09/11/20 04:44 Labs: Laboratory Last Values WBC 4.1 K/mm3 (4.5-11.0) L 09/07/20 04:28 RBC 4.00 M/mm3 (3.65-5.03) 09/07/20 04:28 Hgb 13.7 gm/dl (11.8-15.2) 09/07/20 04:28 Hct 40.0 % (35.5-45.6) 09/07/20 04:28 MCV 100 fl (84-94) H 09/07/20 04:28 MCH 34 pg (28-32) H 09/07/20 04:28 MCHC 34 % (32-34) 09/07/20 04:28 RDW 13.5 % (13.2-15.2) 09/07/20 04:28 Plt Count 197 K/mm3 (140-440) 09/07/20 04:28 Lymph % (Auto) 18.4 % (13.4-35.0) 08/31/20 03:37 Woodson % (Auto) Fuel System Maintenance Supervisor 09/07/20 04:28 Eos % (Auto) 0.4 % (0.0-4.3) 08/31/20 03:37 Baso % (Auto) 1.2 % (0.0-1.8) 08/31/20 03:37 Lymph # (Auto) 0.8 K/mm3 (1.2-5.4) L 08/31/20 03:37 Woodson # (Auto) 0.6 K/mm3 (0.0-0.8) 08/31/20 03:37 Eos # (Auto) 0.0 K/mm3 (0.0-0.4) 08/31/20 03:37 Baso # (Auto) 0.1 K/mm3 (0.0-0.1) 08/31/20 03:37 Add Manual Diff Complete 09/07/20 04:28 Total Counted 100 09/07/20 04:28 Seg Neutrophils % 66.7 % (40.0-70.0) 08/31/20 03:37 Seg Neuts % (Manual) 59.0 % (40.0-70.0) 09/07/20 04:28 Lymphocytes % (Manual) 27.0 % (13.4-35.0) 09/07/20 04:28 Monocytes % (Manual) 13.0 % (0.0-7.3) H 09/07/20 04:28 Basophils % (Manual) 1.0 % (0.0-1.8) 09/07/20 04:28 Nucleated RBC % Not Reportable 09/07/20 04:28 Seg Neutrophils # 3.0 K/mm3 (1.8-7.7) 08/31/20 03:37 Seg Neutrophils # Man 2.4 K/mm3 (1.8-7.7) 09/07/20 04:28 Band Neutrophils # 0.0 K/mm3 09/07/20 04:28 Lymphocytes # (Manual) 1.1 K/mm3 (1.2-5.4) L 09/07/20 04:28 Abs React Lymphs (Man) 0.0 K/mm3 09/07/20 04:28 Monocytes # (Manual) 0.5 K/mm3 (0.0-0.8) 09/07/20 04:28 Eosinophils # (Manual) 0.0 K/mm3 (0.0-0.4) 09/07/20 04:28 Basophils # (Manual) 0.0 K/mm3 (0.0-0.1) 09/07/20 04:28 Metamyelocytes # 0.0 K/mm3 09/07/20 04:28 Myelocytes # 0.0 K/mm3 09/07/20 04:28 Promyelocytes # 0.0 K/mm3 09/07/20 04:28 Blast Cells # 0.0 K/mm3 09/07/20 04:28 WBC Morphology Not Reportable 09/07/20 04:28 Hypersegmented Neuts Not Reportable 09/07/20 04:28 Hyposegmented Neuts Not Reportable 09/07/20 04:28 Hypogranular Neuts Not Reportable 09/07/20 04:28 Smudge Cells Not Reportable 09/07/20 04:28 Toxic Granulation Not Reportable 09/07/20 04:28 Toxic Vacuolation Not Reportable 09/07/20 04:28 Dohle Bodies Not Reportable 09/07/20 04:28 Pelger-Huet Anomaly Not Reportable 09/07/20 04:28 César Rods Not Reportable 09/07/20 04:28 Platelet Estimate Consistent w auto 09/07/20 04:28 Clumped Platelets Not Reportable 09/07/20 04:28 Plt Clumps, EDTA Not Reportable 09/07/20 04:28 Large Platelets Not Reportable 09/07/20 04:28 Giant Platelets Not Reportable 09/07/20 04:28 Platelet Satelliting Not Reportable 09/07/20 04:28 Plt Morphology Comment Not Reportable 09/07/20 04:28 RBC Morphology Not Reportable 09/07/20 04:28 Dimorphic RBCs Not Reportable 09/07/20 04:28 Polychromasia Not Reportable 09/07/20 04:28 Hypochromasia Not Reportable 09/07/20 04:28 Poikilocytosis Not Reportable 09/07/20 04:28 Anisocytosis 1+ 09/07/20 04:28 Microcytosis Not Reportable 09/07/20 04:28 Macrocytosis 1+ 09/07/20 04:28 Spherocytes Not Reportable 09/07/20 04:28 Pappenheimer Bodies Not Reportable 09/07/20 04:28 Sickle Cells Not Reportable 09/07/20 04:28 Target Cells Not Reportable 09/07/20 04:28 Tear Drop Cells Not Reportable 09/07/20 04:28 Ovalocytes Not Reportable 09/07/20 04:28 Helmet Cells Not Reportable 09/07/20 04:28 Singh-[place] Bodies Not Reportable 09/07/20 04:28 [place] Rings Not Reportable 09/07/20 04:28 Sukhjinder Cells Not Reportable 09/07/20 04:28 Bite Cells Not Reportable 09/07/20 04:28 Crenated Cell Not Reportable 09/07/20 04:28 Elliptocytes Not Reportable 09/07/20 04:28 Acanthocytes (Spur) Not Reportable 09/07/20 04:28 Rouleaux Not Reportable 09/07/20 04:28 Hemoglobin C Crystals Not Reportable 09/07/20 04:28 Schistocytes Not Reportable 09/07/20 04:28 Malaria parasites Not Reportable 09/07/20 04:28 Abe Bodies Not Reportable 09/07/20 04:28 Hem Pathologist Commnt No 09/07/20 04:28 PT 14.0 Sec. (12.2-14.9) 08/29/20 22:18 INR 1.03 (0.87-1.13) 08/29/20 22:18 APTT 31.1 Sec. (24.2-36.6) 08/29/20 22:18 Sodium 139 mmol/L (137-145) 09/11/20 04:44 Potassium 4.0 mmol/L (3.6-5.0) 09/11/20 04:44 Chloride 105.6 mmol/L (98-107) 09/11/20 04:44 Carbon Dioxide 21 mmol/L (22-30) L 09/11/20 04:44 Anion Gap 16 mmol/L 09/11/20 04:44 BUN 10 mg/dL (9-20) 09/11/20 04:44 Creatinine 0.6 mg/dL (0.8-1.3) L 09/11/20 04:44 Estimated GFR > 60 ml/min 09/11/20 04:44 BUN/Creatinine Ratio 17 % 09/11/20 04:44 Glucose 83 mg/dL (75-100) 09/11/20 04:44 Calcium 9.1 mg/dL (8.4-10.2) 09/11/20 04:44 Phosphorus 4.00 mg/dL (2.5-4.5) 09/03/20 05:13 Magnesium 2.00 mg/dL (1.7-2.3) 09/09/20 05:17 Total Bilirubin 0.60 mg/dL (0.1-1.2) 09/11/20 04:44 Direct Bilirubin 0.9 mg/dL (0-0.2) H 09/01/20 04:47 Indirect Bilirubin 0.9 mg/dL 09/01/20 04:47 AST 93 units/L (5-40) H 09/11/20 04:44 ALT 73 units/L (7-56) H 09/11/20 04:44 Alkaline Phosphatase 139 units/L (35-129) H 09/11/20 04:44 Total Creatine Kinase 374 units/L (55-170) H 08/29/20 22:30 Troponin T < 0.010 ng/mL (0.00-0.029) 09/01/20 04:47 Total Protein 6.9 g/dL (6.3-8.2) 09/11/20 04:44 Albumin 2.8 g/dL (3.9-5) L 09/11/20 04:44 Albumin/Globulin Ratio 0.7 % 09/11/20 04:44 Salicylates < 0.3 mg/dL (2.8-20.0) L 08/29/20 22:18 Urine Opiates Screen Presumptive negative 08/29/20 23:45 Urine Methadone Screen Presumptive negative 08/29/20 23:45 Acetaminophen 5.0 ug/mL (10.0-30.0) L 08/29/20 22:18 Ur Barbiturates Screen Presumptive negative 08/29/20 23:45 Ur Phencyclidine Scrn Presumptive negative 08/29/20 23:45 Ur Amphetamines Screen Presumptive negative 08/29/20 23:45 U Benzodiazepines Scrn Presumptive negative 08/29/20 23:45 Urine Cocaine Screen Presumptive negative 08/29/20 23:45 U Marijuana (THC) Screen Presumptive negative 08/29/20 23:45 Drugs of Abuse Note Disclamer 08/29/20 23:45 Plasma/Serum Alcohol 0.43 % (0-0.07) H 08/29/20 22:18 Coronavirus (PCR) Negative (Negative) 09/08/20 09:27 Hepatitis A IgM Ab Non-reactive (NonReactive) 08/30/20 13:37 Hep Bs Antigen Non-reactive (Negative) 08/30/20 13:37 Hepatitis C Antibody Non-reactive (NonReactive) 08/30/20 13:37 [place]/IV: Voiding Method Toilet Active Medications - Current Medications Current Medications: Generic Name Dose Route Start Last Admin Trade Name Freq PRN Reason Stop Dose Admin Acetaminophen 650 mg 08/30/20 00:19 Acetaminophen 325 Mg Tab PO Q4H PRN Pain MILD(1-3)/Fever >100.5/AMOS Albuterol 2.5 mg 08/30/20 00:19 Albuterol 2.5 Mg/3 Ml Nebu IH Q4HRT PRN Shortness Of Breath Famotidine 20 mg 08/30/20 10:00 09/11/20 23:13 Famotidine 20 Mg Tab PO 20 mg BID LEANNE Administration Metoprolol Tartrate 5 mg 08/30/20 17:23 08/31/20 22:40 Metoprolol Tartrate 5 Mg/5 Ml Inj IV 5 mg Q4H PRN Administration Tachyarrhythmias Metoprolol Tartrate 50 mg 09/01/20 22:00 09/11/20 23:14 Metoprolol Tartrate 50 Mg Tab PO 50 mg BID LEANNE Administration Ondansetron HCl 4 mg 08/30/20 00:19 Ondansetron 4 Mg/2 Ml Inj IV Q8H PRN Nausea And Vomiting Sodium Chloride 10 ml 08/30/20 10:00 09/11/20 23:14 Sodium Chloride 0.9% 10 Ml Flush Syringe IV 10 ml BID LEANNE Administration Sodium Chloride 10 ml 08/30/20 00:19 Sodium Chloride 0.9% 10 Ml Flush Syringe IV PRN PRN LINE FLUSH Thiamine HCl 100 mg 08/31/20 10:00 09/11/20 11:54 Thiamine 100 Mg Tab PO 100 mg QDAY LEANNE Administration Vitamin B Complex/Folic Acid 1 each 08/31/20 10:00 09/11/20 11:54 Folbee Plus Cz (Folic Acid/Vit Bcomp&C/Cu/Znox) PO 1 each QDAY LEANNE Administration Nutrition/Malnutrition Assess - Dietary Evaluation Nutrition/Malnutrition Findings: Nutrition Notes Start: 09/04/20 12:22 Freq: Status: Active Protocol: Document 09/09/20 13:03 CHRIS (Rec: 09/09/20 13:06 CHRIS [id number]) Nutrition Notes Initial or Follow up Reassessment Current Diagnosis Hypertension Other Pertinent Diagnosis alcohol withdrawal and dependence, fall Current Diet Cardiac Labs/Tests Na 136 Pertinent Medications NS at 100 ml/hr Height 5 ft 10 in Weight 71.3 kg [place] Body Weight (kg) 75.45 BMI 22.5 Weight Status Appropriate Subjective/Other Information Pt drinking 100% of 3 ONS daily. Unopened ONS at bedside . Pt not eating. Percent of energy/protein needs met: 57%/95% Burn Absent Trauma Absent Current % PO Negligible Minimum of two criteria Yes Energy Intake (severe) < or equal to 50% Estimated Energy Requirement > or equal to 5 days Interpretation of Weight Loss (severe) >2% in 1 week #1 Nutrition Diagnosis Inadequate oral intake Diagnosis Progress(for reassessment Continues documentation) Is patient on ventilator? No Is Patient Ambulatory and/or Out of Bed No REE-([facility]-confined to bed) [phone] Calculation Used for Recommendations [facility] Additional Notes Protein: (0.8-1g/kg) 63-78g Fluid: 1 ml/kcal Nutrition Intervention Change Diet Order: Continue Add Supplement/Snack (indicate name/kcal Ensure Enlive TID /protein ) Provides kCal: 1,050 Provides Protein (gm) 60 Goal #1 Meet at least 75% of energy and protein needs via PO and ONS Anticipated Discharge Needs: cardiac Follow-Up By: 09/14/20 Additional Comments FU for intakes and ONS tolerance
[2020-09-12] MEDS: FAMOTIDINE 20 MG TAB PO SCH ×2 (10:38→22:58)
[2020-09-12] MEDS: METOPROLOL TARTRATE 50 MG TAB PO SCH ×2 (10:38→22:58)
[2020-09-12] MEDS: THIAMINE 100 MG TAB PO SCH (10:38)
[2020-09-12] MEDS: FOLBEE PLUS CZ (FOLIC ACID/VIT BCOMP&C/CU/ZNOX) PO SCH (10:38)
--- NOTE | 2020-09-13 08:15 | Progress Note ---
Assessment and Plan Assessment and plan: -Alcohol withdrawal symptoms; Current Visit: Yes Status: Acute Resolved, no tremulousness, no agitation CIWA protocol discontinued Closely monitor, Ativan low-dose as needed for agitation or tremulousness --Intermittent SVT ; resolved Current Visit: Yes Status: Acute Nonsustained SVT secondary to delirium tremens/alcohol withdrawal Echocardiogram 08/31/2020: LVEF is 50 to 55%. LV normal size, LV SF normal. Mild diastolic dysfunction. RV SF is normal. Mild MR. RVSP is 36 mmHg. Continue current rate control /antihypertensive regimen: Metoprolol 50 mg twice daily --Transaminitis; Current Visit: Yes Status: Acute Trending down, due to alcoholic hepatitis Trending down --Chronic alcohol use; Current Visit: Yes Status: Chronic Strongly advised the patient to quit alcohol intake Advised to seek alcohol rehabilitation, alcohol Anonymous Patient verbalized understanding --Alcohol liver disease; LFTs trending down Current Visit: Yes Status: Acute Secondary to chronic alcohol use Advised to quit alcohol intake LFTs trending down, GI evaluated Hepatitis panel negative --Hypokalemia; Current Visit: Yes Status: Acute . Resolved --Hypophosphatemia; resolved Current Visit: Yes Status: Acute. phosphate levels normal today Monitor electrolytes -- Alcohol intoxication/present on admission Current Visit: Yes Status: Acute Resolved, thiamine folic acid and multivitamins --Status post fall Current Visit: Yes Status: Acute PT OT recommended subacute rehab -- Facial injury Current Visit: Yes Status: Acute Face CT and cervical spine and head CT shows no acute injury. PT OT recommended subacute rehab -- Hypertension Current Visit: Yes Status: Acute Well controlled , as needed hydralazine 10 mg IV --Mild to moderate malnutrition and hypoalbuminemia; Current Visit: Yes Status: Acute Nutrition supplements and supportive care --PTSD (post-traumatic stress disorder) Current Visit: Yes Status: Acute We will monitor the patient closely. Outpatient follow-up with psych -- DVT prophylaxis; Current Visit: Yes Status: Acute SCD for DVT prophylaxis because of facial trauma. Pepcid 20 mg p.o. twice daily for GI prophylaxis. Patient is a full code DC planning per case management Awaiting placement Patient is medically stable for discharge Subjective Date of service: 09/07/20 Principal diagnosis: Alcohol withdrawal Interval history: Brief history and daily hospital course: 59-year-old male patient with significant history of chronic alcohol use was admitted through emergency room with alcohol intoxication followed by Alcohol withdrawal symptoms, placed on CIWA protocol, patient had intermittent SVT requiring chemical cardioversion, cardiology evaluated the patient and medications were optimized, cleared for discharge. Patient continues to have mild tremulousness currently on Ativan as needed Follow PT OT evaluation and recommendations, discharge home when medically stab le 08/30/2020; patient is on CIWA protocols Had intermittent SVTs resolved with beta-blockers Cardiology consulted 08/31/2020; no new episodes of SVT Continues to be on CIWA protocols LFTs trending down, GI following Recommend PT OT when medically stable Hypokalemia, hypophosphatemia, replace per protocols 09/01/2020; patient had new episodes of SVT last night Requiring adenosine, metoprolol, transferred to ICU This morning patient is in sinus heart rate in 80s and 90s 09/02/2020; patient remains confused agitated at times, continue CIWA protocol 09/03/2020; continue CIWA protocol Once patient is more stable will request PT OT Will update family today 09/04/2020; hypokalemia replenished Follow PT OT evaluation recommendation DC planning per case management when medically stable possible discharge in 1 to 2 days if he comes off Ativan as needed 09/05/2020 More alert and oriented Out of bed to chair 09/06/2020 More more alert and oriented Unable to go to his home because no one is present at this point Discussed with his father and Luis Fernando Garvin's phone number is [phone] This phone number is not demographics Patient is willing to accept him tomorrow Continue IV fluids 09/07/2020 Patient is more alert and oriented Possible discharge tomorrow To discuss with Luis Fernando Garvin at [phone] More alert and responsive 09/08/2020; Patient awaiting placement 09/09/2020; awaiting placement 09/10/2020; patient is medically stable for discharge Off CIWA protocol, awaiting placement PT OT recommended subacute rehab 09/11/2020 Patient medically stable for discharge Awaiting placement 09/12/20 Patient came with alcohol withdrawal symptoms, stabilized. He is stable for discharge. Awaiting placement. 09/13/20 Patient came with alcohol withdrawal symptoms, stabilized. He is stable for discharge. Awaiting placement. History Interval history: Patient has no new complaints Hospitalist Physical - Physical exam Narrative exam: Gen: Not in acute distress, lying in bed HEENT: Normocephalic, atraumatic Neck : supple, no JVD Heart:S1 and S2 reg, no murmurs, rubs or gallop Lungs: clear to auscultation bilaterally, no wheeze Abd: Soft , non tender, non distended, normal bowel sounds Ext: No edema, no clubbing, no cyanosis Neuro: Awake, - Constitutional Vitals: Temp Pulse Resp BP Pulse Ox 97.6 F 69 20 120/78 97 09/13/20 04:52 09/13/20 04:52 09/13/20 04:52 09/13/20 04:52 09/13/20 04:52 General appearance: Present: no acute distress, well-nourished HEART Score - HEART Score Troponin: Troponin T < 0.010 ng/mL (0.00-0.029) 09/01/20 04:47 Results - Labs CBC & Chem 7: 09/07/20 04:28 09/11/20 04:44 Labs: Laboratory Last Values WBC 4.1 K/mm3 (4.5-11.0) L 09/07/20 04:28 RBC 4.00 M/mm3 (3.65-5.03) 09/07/20 04:28 Hgb 13.7 gm/dl (11.8-15.2) 09/07/20 04:28 Hct 40.0 % (35.5-45.6) 09/07/20 04:28 MCV 100 fl (84-94) H 09/07/20 04:28 MCH 34 pg (28-32) H 09/07/20 04:28 MCHC 34 % (32-34) 09/07/20 04:28 RDW 13.5 % (13.2-15.2) 09/07/20 04:28 Plt Count 197 K/mm3 (140-440) 09/07/20 04:28 Lymph % (Auto) 18.4 % (13.4-35.0) 08/31/20 03:37 [place] % (Auto) [place] 09/07/20 04:28 Eos % (Auto) 0.4 % (0.0-4.3) 08/31/20 03:37 Baso % (Auto) 1.2 % (0.0-1.8) 08/31/20 03:37 Lymph # (Auto) 0.8 K/mm3 (1.2-5.4) L 08/31/20 03:37 [place] # (Auto) 0.6 K/mm3 (0.0-0.8) 08/31/20 03:37 Eos # (Auto) 0.0 K/mm3 (0.0-0.4) 08/31/20 03:37 Baso # (Auto) 0.1 K/mm3 (0.0-0.1) 08/31/20 03:37 Add Manual Diff Complete 09/07/20 04:28 Total Counted 100 09/07/20 04:28 Seg Neutrophils % 66.7 % (40.0-70.0) 08/31/20 03:37 Seg Neuts % (Manual) 59.0 % (40.0-70.0) 09/07/20 04:28 Lymphocytes % (Manual) 27.0 % (13.4-35.0) 09/07/20 04:28 Monocytes % (Manual) 13.0 % (0.0-7.3) H 09/07/20 04:28 Basophils % (Manual) 1.0 % (0.0-1.8) 09/07/20 04:28 Nucleated RBC % Not Reportable 09/07/20 04:28 Seg Neutrophils # 3.0 K/mm3 (1.8-7.7) 08/31/20 03:37 Seg Neutrophils # Man 2.4 K/mm3 (1.8-7.7) 09/07/20 04:28 Band Neutrophils # 0.0 K/mm3 09/07/20 04:28 Lymphocytes # (Manual) 1.1 K/mm3 (1.2-5.4) L 09/07/20 04:28 Abs React Lymphs (Man) 0.0 K/mm3 09/07/20 04:28 Monocytes # (Manual) 0.5 K/mm3 (0.0-0.8) 09/07/20 04:28 Eosinophils # (Manual) 0.0 K/mm3 (0.0-0.4) 09/07/20 04:28 Basophils # (Manual) 0.0 K/mm3 (0.0-0.1) 09/07/20 04:28 Metamyelocytes # 0.0 K/mm3 09/07/20 04:28 Myelocytes # 0.0 K/mm3 09/07/20 04:28 Promyelocytes # 0.0 K/mm3 09/07/20 04:28 Blast Cells # 0.0 K/mm3 09/07/20 04:28 WBC Morphology Not Reportable 09/07/20 04:28 Hypersegmented Neuts Not Reportable 09/07/20 04:28 Hyposegmented Neuts Not Reportable 09/07/20 04:28 Hypogranular Neuts Not Reportable 09/07/20 04:28 Smudge Cells Not Reportable 09/07/20 04:28 Toxic Granulation Not Reportable 09/07/20 04:28 Toxic Vacuolation Not Reportable 09/07/20 04:28 Dohle Bodies Not Reportable 09/07/20 04:28 Pelger-Huet Anomaly Not Reportable 09/07/20 04:28 César Rods Not Reportable 09/07/20 04:28 Platelet Estimate Consistent w auto 09/07/20 04:28 Clumped Platelets Not Reportable 09/07/20 04:28 Plt Clumps, EDTA Not Reportable 09/07/20 04:28 Large Platelets Not Reportable 09/07/20 04:28 Giant Platelets Not Reportable 09/07/20 04:28 Platelet Satelliting Not Reportable 09/07/20 04:28 Plt Morphology Comment Not Reportable 09/07/20 04:28 RBC Morphology Not Reportable 09/07/20 04:28 Dimorphic RBCs Not Reportable 09/07/20 04:28 Polychromasia Not Reportable 09/07/20 04:28 Hypochromasia Not Reportable 09/07/20 04:28 Poikilocytosis Not Reportable 09/07/20 04:28 Anisocytosis 1+ 09/07/20 04:28 Microcytosis Not Reportable 09/07/20 04:28 Macrocytosis 1+ 09/07/20 04:28 Spherocytes Not Reportable 09/07/20 04:28 Pappenheimer Bodies Not Reportable 09/07/20 04:28 Sickle Cells Not Reportable 09/07/20 04:28 Target Cells Not Reportable 09/07/20 04:28 Tear Drop Cells Not Reportable 09/07/20 04:28 Ovalocytes Not Reportable 09/07/20 04:28 Helmet Cells Not Reportable 09/07/20 04:28 [place] Bodies Not Reportable 09/07/20 04:28 [place] Rings Not Reportable 09/07/20 04:28 [place] Cells Not Reportable 09/07/20 04:28 Bite Cells Not Reportable 09/07/20 04:28 Crenated Cell Not Reportable 09/07/20 04:28 Elliptocytes Not Reportable 09/07/20 04:28 Acanthocytes (Spur) Not Reportable 09/07/20 04:28 Rouleaux Not Reportable 09/07/20 04:28 Hemoglobin C Crystals Not Reportable 09/07/20 04:28 Schistocytes Not Reportable 09/07/20 04:28 Malaria parasites Not Reportable 09/07/20 04:28 Abe Bodies Not Reportable 09/07/20 04:28 Hem Pathologist Commnt No 09/07/20 04:28 PT 14.0 Sec. (12.2-14.9) 08/29/20 22:18 INR 1.03 (0.87-1.13) 08/29/20 22:18 APTT 31.1 Sec. (24.2-36.6) 08/29/20 22:18 Sodium 139 mmol/L (137-145) 09/11/20 04:44 Potassium 4.0 mmol/L (3.6-5.0) 09/11/20 04:44 Chloride 105.6 mmol/L (98-107) 09/11/20 04:44 Carbon Dioxide 21 mmol/L (22-30) L 09/11/20 04:44 Anion Gap 16 mmol/L 09/11/20 04:44 BUN 10 mg/dL (9-20) 09/11/20 04:44 Creatinine 0.6 mg/dL (0.8-1.3) L 09/11/20 04:44 Estimated GFR > 60 ml/min 09/11/20 04:44 BUN/Creatinine Ratio 17 % 09/11/20 04:44 Glucose 83 mg/dL (75-100) 09/11/20 04:44 Calcium 9.1 mg/dL (8.4-10.2) 09/11/20 04:44 Phosphorus 4.00 mg/dL (2.5-4.5) 09/03/20 05:13 Magnesium 2.00 mg/dL (1.7-2.3) 09/09/20 05:17 Total Bilirubin 0.60 mg/dL (0.1-1.2) 09/11/20 04:44 Direct Bilirubin 0.9 mg/dL (0-0.2) H 09/01/20 04:47 Indirect Bilirubin 0.9 mg/dL 09/01/20 04:47 AST 93 units/L (5-40) H 09/11/20 04:44 ALT 73 units/L (7-56) H 09/11/20 04:44 Alkaline Phosphatase 139 units/L (35-129) H 09/11/20 04:44 Total Creatine Kinase 374 units/L (55-170) H 08/29/20 22:30 Troponin T < 0.010 ng/mL (0.00-0.029) 09/01/20 04:47 Total Protein 6.9 g/dL (6.3-8.2) 09/11/20 04:44 Albumin 2.8 g/dL (3.9-5) L 09/11/20 04:44 Albumin/Globulin Ratio 0.7 % 09/11/20 04:44 Salicylates < 0.3 mg/dL (2.8-20.0) L 08/29/20 22:18 Urine Opiates Screen Presumptive negative 08/29/20 23:45 Urine Methadone Screen Presumptive negative 08/29/20 23:45 Acetaminophen 5.0 ug/mL (10.0-30.0) L 08/29/20 22:18 Ur Barbiturates Screen Presumptive negative 08/29/20 23:45 Ur Phencyclidine Scrn Presumptive negative 08/29/20 23:45 Ur Amphetamines Screen Presumptive negative 08/29/20 23:45 U Benzodiazepines Scrn Presumptive negative 08/29/20 23:45 Urine Cocaine Screen Presumptive negative 08/29/20 23:45 U Marijuana (THC) Screen Presumptive negative 08/29/20 23:45 Drugs of Abuse Note Disclamer 08/29/20 23:45 Plasma/Serum Alcohol 0.43 % (0-0.07) H 08/29/20 22:18 Coronavirus (PCR) Negative (Negative) 09/08/20 09:27 Hepatitis A IgM Ab Non-reactive (NonReactive) 08/30/20 13:37 Hep Bs Antigen Non-reactive (Negative) 08/30/20 13:37 Hepatitis C Antibody Non-reactive (NonReactive) 08/30/20 13:37 [place]/IV: Voiding Method Incontinent Active Medications - Current Medications Current Medications: Generic Name Dose Route Start Last Admin Trade Name Freq PRN Reason Stop Dose Admin Acetaminophen 650 mg 08/30/20 00:19 Acetaminophen 325 Mg Tab PO Q4H PRN Pain MILD(1-3)/Fever >100.5/AMOS Albuterol 2.5 mg 08/30/20 00:19 Albuterol 2.5 Mg/3 Ml Nebu IH Q4HRT PRN Shortness Of Breath Famotidine 20 mg 08/30/20 10:00 09/12/20 22:58 Famotidine 20 Mg Tab PO 20 mg BID LEANNE Administration Metoprolol Tartrate 5 mg 08/30/20 17:23 08/31/20 22:40 Metoprolol Tartrate 5 Mg/5 Ml Inj IV 5 mg Q4H PRN Administration Tachyarrhythmias Metoprolol Tartrate 50 mg 09/01/20 22:00 09/12/20 22:58 Metoprolol Tartrate 50 Mg Tab PO 50 mg BID LEANNE Administration Ondansetron HCl 4 mg 08/30/20 00:19 Ondansetron 4 Mg/2 Ml Inj IV Q8H PRN Nausea And Vomiting Sodium Chloride 10 ml 08/30/20 10:00 09/12/20 22:59 Sodium Chloride 0.9% 10 Ml Flush Syringe IV Not Given BID LEANNE Sodium Chloride 10 ml 08/30/20 00:19 Sodium Chloride 0.9% 10 Ml Flush Syringe IV PRN PRN LINE FLUSH Thiamine HCl 100 mg 08/31/20 10:00 09/12/20 10:38 Thiamine 100 Mg Tab PO 100 mg QDAY LEANNE Administration Vitamin B Complex/Folic Acid 1 each 08/31/20 10:00 09/12/20 10:38 Folbee Plus Cz (Folic Acid/Vit Bcomp&C/Cu/Znox) PO 1 each QDAY LEANNE Administration Nutrition/Malnutrition Assess - Dietary Evaluation Nutrition/Malnutrition Findings: Nutrition Notes Start: 09/04/20 12:22 Freq: Status: Active Protocol: Document 09/09/20 13:03 (Rec: 09/09/20 13:06 [id number]) Nutrition Notes Initial or Follow up Reassessment Current Diagnosis Hypertension Other Pertinent Diagnosis alcohol withdrawal and dependence, fall Current Diet Cardiac Labs/Tests Na 136 Pertinent Medications NS at 100 ml/hr Height 5 ft 10 in Weight 71.3 kg [place] Body Weight (kg) 75.45 BMI 22.5 Weight Status Appropriate Subjective/Other Information Pt drinking 100% of 3 ONS daily. Unopened ONS at bedside . Pt not eating. Percent of energy/protein needs met: 57%/95% Burn Absent Trauma Absent Current % PO Negligible Minimum of two criteria Yes Energy Intake (severe) < or equal to 50% Estimated Energy Requirement > or equal to 5 days Interpretation of Weight Loss (severe) >2% in 1 week #1 Nutrition Diagnosis Inadequate oral intake Diagnosis Progress(for reassessment Continues documentation) Is patient on ventilator? No Is Patient Ambulatory and/or Out of Bed No REE-([facility]-confined to bed) 3180.008 Calculation Used for Recommendations [facility] Additional Notes Protein: (0.8-1g/kg) 63-78g Fluid: 1 ml/kcal Nutrition Intervention Change Diet Order: Continue Add Supplement/Snack (indicate name/kcal Ensure Enlive TID /protein ) Provides kCal: 1,050 Provides Protein (gm) 60 Goal #1 Meet at least 75% of energy and protein needs via PO and ONS Anticipated Discharge Needs: cardiac Follow-Up By: 09/14/20 Additional Comments FU for intakes and ONS tolerance
[2020-09-13] MEDS: FAMOTIDINE 20 MG TAB PO SCH ×2 (10:14→23:23)
[2020-09-13] MEDS: THIAMINE 100 MG TAB PO SCH (10:14)
[2020-09-13] MEDS: FOLBEE PLUS CZ (FOLIC ACID/VIT BCOMP&C/CU/ZNOX) PO SCH (10:14)
[2020-09-13] MEDS: METOPROLOL TARTRATE 50 MG TAB PO SCH ×2 (10:14→23:23)
--- NOTE | 2020-09-14 08:48 | Progress Note ---
Assessment and Plan Assessment and plan: -Alcohol withdrawal symptoms; Current Visit: Yes Status: Acute Resolved, no tremulousness, no agitation CIWA protocol discontinued Closely monitor, Ativan low-dose as needed for agitation or tremulousness --Intermittent SVT ; resolved Current Visit: Yes Status: Acute Nonsustained SVT secondary to delirium tremens/alcohol withdrawal Echocardiogram 08/31/2020: LVEF is 50 to 55%. LV normal size, LV SF normal. Mild diastolic dysfunction. RV SF is normal. Mild MR. RVSP is 36 mmHg. Continue current rate control /antihypertensive regimen: Metoprolol 50 mg twice daily --Transaminitis; Current Visit: Yes Status: Acute Trending down, due to alcoholic hepatitis Trending down --Chronic alcohol use; Current Visit: Yes Status: Chronic Strongly advised the patient to quit alcohol intake Advised to seek alcohol rehabilitation, alcohol Anonymous Patient verbalized understanding --Alcohol liver disease; LFTs trending down Current Visit: Yes Status: Acute Secondary to chronic alcohol use Advised to quit alcohol intake LFTs trending down, GI evaluated Hepatitis panel negative --Hypokalemia; Current Visit: Yes Status: Acute . Resolved --Hypophosphatemia; resolved Current Visit: Yes Status: Acute. phosphate levels normal today Monitor electrolytes -- Alcohol intoxication/present on admission Current Visit: Yes Status: Acute Resolved, thiamine folic acid and multivitamins --Status post fall Current Visit: Yes Status: Acute PT OT recommended subacute rehab -- Facial injury Current Visit: Yes Status: Acute Face CT and cervical spine and head CT shows no acute injury. PT OT recommended subacute rehab -- Hypertension Current Visit: Yes Status: Acute Well controlled , as needed hydralazine 10 mg IV --Mild to moderate malnutrition and hypoalbuminemia; Current Visit: Yes Status: Acute Nutrition supplements and supportive care --PTSD (post-traumatic stress disorder) Current Visit: Yes Status: Acute We will monitor the patient closely. Outpatient follow-up with psych -- DVT prophylaxis; Current Visit: Yes Status: Acute SCD for DVT prophylaxis because of facial trauma. Pepcid 20 mg p.o. twice daily for GI prophylaxis. Patient is a full code DC planning per case management Awaiting placement Patient is medically stable for discharge Subjective Date of service: 09/07/20 Principal diagnosis: Alcohol withdrawal Interval history: Brief history and daily hospital course: 59-year-old male patient with significant history of chronic alcohol use was admitted through emergency room with alcohol intoxication followed by Alcohol withdrawal symptoms, placed on CIWA protocol, patient had intermittent SVT requiring chemical cardioversion, cardiology evaluated the patient and medications were optimized, cleared for discharge. Patient continues to have mild tremulousness currently on Ativan as needed Follow PT OT evaluation and recommendations, discharge home when medically stab le 08/30/2020; patient is on CIWA protocols Had intermittent SVTs resolved with beta-blockers Cardiology consulted 08/31/2020; no new episodes of SVT Continues to be on CIWA protocols LFTs trending down, GI following Recommend PT OT when medically stable Hypokalemia, hypophosphatemia, replace per protocols 09/01/2020; patient had new episodes of SVT last night Requiring adenosine, metoprolol, transferred to ICU This morning patient is in sinus heart rate in 80s and 90s 09/02/2020; patient remains confused agitated at times, continue CIWA protocol 09/03/2020; continue CIWA protocol Once patient is more stable will request PT OT Will update family today 09/04/2020; hypokalemia replenished Follow PT OT evaluation recommendation DC planning per case management when medically stable possible discharge in 1 to 2 days if he comes off Ativan as needed 09/05/2020 More alert and oriented Out of bed to chair 09/06/2020 More more alert and oriented Unable to go to his home because no one is present at this point Discussed with his father and Luis Fernando Garvin's phone number is [phone] This phone number is not demographics Patient is willing to accept him tomorrow Continue IV fluids 09/07/2020 Patient is more alert and oriented Possible discharge tomorrow To discuss with Luis Fernando Garvin at [phone] More alert and responsive 09/08/2020; Patient awaiting placement 09/09/2020; awaiting placement 09/10/2020; patient is medically stable for discharge Off CIWA protocol, awaiting placement PT OT recommended subacute rehab 09/11/2020 Patient medically stable for discharge Awaiting placement 09/12/20 Patient came with alcohol withdrawal symptoms, stabilized. He is stable for discharge. Awaiting placement. 09/13/20 Patient came with alcohol withdrawal symptoms, stabilized. He is stable for discharge. Awaiting placement. 09/14/20 Patient with alcohol abuse, alcohol withdrawal syndrome, transaminitis. He is now stabilised, stable for discharge Awaiting placement. History Interval history: Patient has no new complaints Hospitalist Physical - Physical exam Narrative exam: Gen: Not in acute distress, lying in bed HEENT: Normocephalic, atraumatic Neck : supple, no JVD Heart:S1 and S2 reg, no murmurs, rubs or gallop Lungs: clear to auscultation bilaterally, no wheeze Abd: Soft , non tender, non distended, normal bowel sounds Ext: No edema, no clubbing, no cyanosis Neuro: Awake, - Constitutional Vitals: Temp Pulse Resp BP Pulse Ox 98.2 F 65 18 127/78 99 09/14/20 04:24 09/14/20 04:24 09/14/20 04:24 09/14/20 04:24 09/14/20 04:24 General appearance: Present: no acute distress, well-nourished HEART Score - HEART Score Troponin: Troponin T < 0.010 ng/mL (0.00-0.029) 09/01/20 04:47 Results - Labs CBC & Chem 7: 09/07/20 04:28 09/11/20 04:44 Labs: Laboratory Last Values WBC 4.1 K/mm3 (4.5-11.0) L 09/07/20 04:28 RBC 4.00 M/mm3 (3.65-5.03) 09/07/20 04:28 Hgb 13.7 gm/dl (11.8-15.2) 09/07/20 04:28 Hct 40.0 % (35.5-45.6) 09/07/20 04:28 MCV 100 fl (84-94) H 09/07/20 04:28 MCH 34 pg (28-32) H 09/07/20 04:28 MCHC 34 % (32-34) 09/07/20 04:28 RDW 13.5 % (13.2-15.2) 09/07/20 04:28 Plt Count 197 K/mm3 (140-440) 09/07/20 04:28 Lymph % (Auto) 18.4 % (13.4-35.0) 08/31/20 03:37 [place] % (Auto) Blow Up Operator 09/07/20 04:28 Eos % (Auto) 0.4 % (0.0-4.3) 08/31/20 03:37 Baso % (Auto) 1.2 % (0.0-1.8) 08/31/20 03:37 Lymph # (Auto) 0.8 K/mm3 (1.2-5.4) L 08/31/20 03:37 [place] # (Auto) 0.6 K/mm3 (0.0-0.8) 08/31/20 03:37 Eos # (Auto) 0.0 K/mm3 (0.0-0.4) 08/31/20 03:37 Baso # (Auto) 0.1 K/mm3 (0.0-0.1) 08/31/20 03:37 Add Manual Diff Complete 09/07/20 04:28 Total Counted 100 09/07/20 04:28 Seg Neutrophils % 66.7 % (40.0-70.0) 08/31/20 03:37 Seg Neuts % (Manual) 59.0 % (40.0-70.0) 09/07/20 04:28 Lymphocytes % (Manual) 27.0 % (13.4-35.0) 09/07/20 04:28 Monocytes % (Manual) 13.0 % (0.0-7.3) H 09/07/20 04:28 Basophils % (Manual) 1.0 % (0.0-1.8) 09/07/20 04:28 Nucleated RBC % Not Reportable 09/07/20 04:28 Seg Neutrophils # 3.0 K/mm3 (1.8-7.7) 08/31/20 03:37 Seg Neutrophils # Man 2.4 K/mm3 (1.8-7.7) 09/07/20 04:28 Band Neutrophils # 0.0 K/mm3 09/07/20 04:28 Lymphocytes # (Manual) 1.1 K/mm3 (1.2-5.4) L 09/07/20 04:28 Abs React Lymphs (Man) 0.0 K/mm3 09/07/20 04:28 Monocytes # (Manual) 0.5 K/mm3 (0.0-0.8) 09/07/20 04:28 Eosinophils # (Manual) 0.0 K/mm3 (0.0-0.4) 09/07/20 04:28 Basophils # (Manual) 0.0 K/mm3 (0.0-0.1) 09/07/20 04:28 Metamyelocytes # 0.0 K/mm3 09/07/20 04:28 Myelocytes # 0.0 K/mm3 09/07/20 04:28 Promyelocytes # 0.0 K/mm3 09/07/20 04:28 Blast Cells # 0.0 K/mm3 09/07/20 04:28 WBC Morphology Not Reportable 09/07/20 04:28 Hypersegmented Neuts Not Reportable 09/07/20 04:28 Hyposegmented Neuts Not Reportable 09/07/20 04:28 Hypogranular Neuts Not Reportable 09/07/20 04:28 Smudge Cells Not Reportable 09/07/20 04:28 Toxic Granulation Not Reportable 09/07/20 04:28 Toxic Vacuolation Not Reportable 09/07/20 04:28 Dohle Bodies Not Reportable 09/07/20 04:28 Pelger-Huet Anomaly Not Reportable 09/07/20 04:28 César Rods Not Reportable 09/07/20 04:28 Platelet Estimate Consistent w auto 09/07/20 04:28 Clumped Platelets Not Reportable 09/07/20 04:28 Plt Clumps, EDTA Not Reportable 09/07/20 04:28 Large Platelets Not Reportable 09/07/20 04:28 Giant Platelets Not Reportable 09/07/20 04:28 Platelet Satelliting Not Reportable 09/07/20 04:28 Plt Morphology Comment Not Reportable 09/07/20 04:28 RBC Morphology Not Reportable 09/07/20 04:28 Dimorphic RBCs Not Reportable 09/07/20 04:28 Polychromasia Not Reportable 09/07/20 04:28 Hypochromasia Not Reportable 09/07/20 04:28 Poikilocytosis Not Reportable 09/07/20 04:28 Anisocytosis 1+ 09/07/20 04:28 Microcytosis Not Reportable 09/07/20 04:28 Macrocytosis 1+ 09/07/20 04:28 Spherocytes Not Reportable 09/07/20 04:28 Pappenheimer Bodies Not Reportable 09/07/20 04:28 Sickle Cells Not Reportable 09/07/20 04:28 Target Cells Not Reportable 09/07/20 04:28 Tear Drop Cells Not Reportable 09/07/20 04:28 Ovalocytes Not Reportable 09/07/20 04:28 Helmet Cells Not Reportable 09/07/20 04:28 [place] Bodies Not Reportable 09/07/20 04:28 [place] Rings Not Reportable 09/07/20 04:28 [place] Cells Not Reportable 09/07/20 04:28 Bite Cells Not Reportable 09/07/20 04:28 Crenated Cell Not Reportable 09/07/20 04:28 Elliptocytes Not Reportable 09/07/20 04:28 Acanthocytes (Spur) Not Reportable 09/07/20 04:28 Rouleaux Not Reportable 09/07/20 04:28 Hemoglobin C Crystals Not Reportable 09/07/20 04:28 Schistocytes Not Reportable 09/07/20 04:28 Malaria parasites Not Reportable 09/07/20 04:28 Abe Bodies Not Reportable 09/07/20 04:28 Hem Pathologist Commnt No 09/07/20 04:28 PT 14.0 Sec. (12.2-14.9) 08/29/20 22:18 INR 1.03 (0.87-1.13) 08/29/20 22:18 APTT 31.1 Sec. (24.2-36.6) 08/29/20 22:18 Sodium 139 mmol/L (137-145) 09/11/20 04:44 Potassium 4.0 mmol/L (3.6-5.0) 09/11/20 04:44 Chloride 105.6 mmol/L (98-107) 09/11/20 04:44 Carbon Dioxide 21 mmol/L (22-30) L 09/11/20 04:44 Anion Gap 16 mmol/L 09/11/20 04:44 BUN 10 mg/dL (9-20) 09/11/20 04:44 Creatinine 0.6 mg/dL (0.8-1.3) L 09/11/20 04:44 Estimated GFR > 60 ml/min 09/11/20 04:44 BUN/Creatinine Ratio 17 % 09/11/20 04:44 Glucose 83 mg/dL (75-100) 09/11/20 04:44 Calcium 9.1 mg/dL (8.4-10.2) 09/11/20 04:44 Phosphorus 4.00 mg/dL (2.5-4.5) 09/03/20 05:13 Magnesium 2.00 mg/dL (1.7-2.3) 09/09/20 05:17 Total Bilirubin 0.60 mg/dL (0.1-1.2) 09/11/20 04:44 Direct Bilirubin 0.9 mg/dL (0-0.2) H 09/01/20 04:47 Indirect Bilirubin 0.9 mg/dL 09/01/20 04:47 AST 93 units/L (5-40) H 09/11/20 04:44 ALT 73 units/L (7-56) H 09/11/20 04:44 Alkaline Phosphatase 139 units/L (35-129) H 09/11/20 04:44 Total Creatine Kinase 374 units/L (55-170) H 08/29/20 22:30 Troponin T < 0.010 ng/mL (0.00-0.029) 09/01/20 04:47 Total Protein 6.9 g/dL (6.3-8.2) 09/11/20 04:44 Albumin 2.8 g/dL (3.9-5) L 09/11/20 04:44 Albumin/Globulin Ratio 0.7 % 09/11/20 04:44 Salicylates < 0.3 mg/dL (2.8-20.0) L 08/29/20 22:18 Urine Opiates Screen Presumptive negative 08/29/20 23:45 Urine Methadone Screen Presumptive negative 08/29/20 23:45 Acetaminophen 5.0 ug/mL (10.0-30.0) L 08/29/20 22:18 Ur Barbiturates Screen Presumptive negative 08/29/20 23:45 Ur Phencyclidine Scrn Presumptive negative 08/29/20 23:45 Ur Amphetamines Screen Presumptive negative 08/29/20 23:45 U Benzodiazepines Scrn Presumptive negative 08/29/20 23:45 Urine Cocaine Screen Presumptive negative 08/29/20 23:45 U Marijuana (THC) Screen Presumptive negative 08/29/20 23:45 Drugs of Abuse Note Disclamer 08/29/20 23:45 Plasma/Serum Alcohol 0.43 % (0-0.07) H 08/29/20 22:18 Coronavirus (PCR) Negative (Negative) 09/08/20 09:27 Hepatitis A IgM Ab Non-reactive (NonReactive) 08/30/20 13:37 Hep Bs Antigen Non-reactive (Negative) 08/30/20 13:37 Hepatitis C Antibody Non-reactive (NonReactive) 08/30/20 13:37 [place]/IV: Voiding Method Toilet Active Medications - Current Medications Current Medications: Generic Name Dose Route Start Last Admin Trade Name Freq PRN Reason Stop Dose Admin Acetaminophen 650 mg 08/30/20 00:19 Acetaminophen 325 Mg Tab PO Q4H PRN Pain MILD(1-3)/Fever >100.5/AMOS Albuterol 2.5 mg 08/30/20 00:19 Albuterol 2.5 Mg/3 Ml Nebu IH Q4HRT PRN Shortness Of Breath Famotidine 20 mg 08/30/20 10:00 09/13/20 23:23 Famotidine 20 Mg Tab PO 20 mg BID LEANNE Administration Metoprolol Tartrate 5 mg 08/30/20 17:23 08/31/20 22:40 Metoprolol Tartrate 5 Mg/5 Ml Inj IV 5 mg Q4H PRN Administration Tachyarrhythmias Metoprolol Tartrate 50 mg 09/01/20 22:00 09/13/20 23:23 Metoprolol Tartrate 50 Mg Tab PO 50 mg BID LEANNE Administration Ondansetron HCl 4 mg 08/30/20 00:19 Ondansetron 4 Mg/2 Ml Inj IV Q8H PRN Nausea And Vomiting Sodium Chloride 10 ml 08/30/20 10:00 09/14/20 08:28 Sodium Chloride 0.9% 10 Ml Flush Syringe IV Not Given BID LEANNE Sodium Chloride 10 ml 08/30/20 00:19 Sodium Chloride 0.9% 10 Ml Flush Syringe IV PRN PRN LINE FLUSH Thiamine HCl 100 mg 08/31/20 10:00 09/13/20 10:14 Thiamine 100 Mg Tab PO 100 mg QDAY LEANNE Administration Vitamin B Complex/Folic Acid 1 each 08/31/20 10:00 09/13/20 10:14 Folbee Plus Cz (Folic Acid/Vit Bcomp&C/Cu/Znox) PO 1 each QDAY LEANNE Administration Nutrition/Malnutrition Assess - Dietary Evaluation Nutrition/Malnutrition Findings: Nutrition Notes Start: 09/04/20 12:22 Freq: Status: Active Protocol: Document 09/09/20 13:03 CHRIS (Rec: 09/09/20 13:06 CHRIS [id number]) Nutrition Notes Initial or Follow up Reassessment Current Diagnosis Hypertension Other Pertinent Diagnosis alcohol withdrawal and dependence, fall Current Diet Cardiac Labs/Tests Na 136 Pertinent Medications NS at 100 ml/hr Height 5 ft 10 in Weight 71.3 kg [place] Body Weight (kg) 75.45 BMI 22.5 Weight Status Appropriate Subjective/Other Information Pt drinking 100% of 3 ONS daily. Unopened ONS at bedside . Pt not eating. Percent of energy/protein needs met: 57%/95% Burn Absent Trauma Absent Current % PO Negligible Minimum of two criteria Yes Energy Intake (severe) < or equal to 50% Estimated Energy Requirement > or equal to 5 days Interpretation of Weight Loss (severe) >2% in 1 week #1 Nutrition Diagnosis Inadequate oral intake Diagnosis Progress(for reassessment Continues documentation) Is patient on ventilator? No Is Patient Ambulatory and/or Out of Bed No REE-([place]-[facility]. Jeor-confined to bed) [phone] Calculation [facility]ations [facility] Additional Notes Protein: (0.8-1g/kg) 63-78g Fluid: 1 ml/kcal Nutrition Intervention Change Diet Order: Continue Add Supplement/Snack (indicate name/kcal Ensure Enlive TID /protein ) Provides kCal: 1,050 Provides Protein (gm) 60 Goal #1 Meet at least 75% of energy and protein needs via PO and ONS Anticipated Discharge Needs: cardiac Follow-Up By: 09/14/20 Additional Comments FU for intakes and ONS tolerance
[2020-09-14] MEDS: FOLBEE PLUS CZ (FOLIC ACID/VIT BCOMP&C/CU/ZNOX) PO SCH (11:06)
[2020-09-14] MEDS: METOPROLOL TARTRATE 50 MG TAB PO SCH ×2 (11:06→22:43)
[2020-09-14] MEDS: FAMOTIDINE 20 MG TAB PO SCH ×2 (11:07→22:43)
[2020-09-14] MEDS: THIAMINE 100 MG TAB PO SCH (11:07)
[2020-09-15] MEDS: THIAMINE 100 MG TAB PO SCH (09:18)
[2020-09-15] MEDS: METOPROLOL TARTRATE 50 MG TAB PO SCH (09:18)
[2020-09-15] MEDS: FAMOTIDINE 20 MG TAB PO SCH (09:18)
[2020-09-15] MEDS: FOLBEE PLUS CZ (FOLIC ACID/VIT BCOMP&C/CU/ZNOX) PO SCH (09:18)
--- NOTE | 2020-09-15 13:00 | Discharge Summary ---
Providers - Providers Date of Admission: 08/30/20 04:07 Attending physician: NIURKA MCKEON MD 08/30/20 00:19 Consult to Physician [CONS] Routine Comment: Consulting Provider: JOSE DA SILVA Physician Instructions: Reason For Exam: Elevated liver enzyme 08/30/20 17:20 Consult to Physician [CONS] Routine Comment: Consulting Provider: DORY JUNIOR Physician Instructions: Reason For Exam: SVT/tachycardia/alcohol withdrawal symptoms 08/31/20 14:14 Physical Therapy Evaluation and Treat [CONS] Urgent Comment: hx of CVA Reason For Exam: PT to eval and treat 08/31/20 14:15 Occupational Therapy Evaluate and Treat [CONS] Routine Comment: Reason For Exam: OT to evak and treat 09/03/20 14:50 Occupational Therapy Evaluate and Treat [CONS] Routine Comment: Reason For Exam: Evaluate and treat/DC needs Primary care physician: MANAGER [employer] Hospitalization Reason for admission: Fall Condition: Stable Hospital course: 59-year-old male with history of hypertension, PTSD, and alcohol use disorder brought in by EMS after he had a ground-level fall from standing sometime today. According to the EMS report, the patient's mother has a boyfriend who checks on him and went to check on him tonight and found him on the floor. The patient admits to drinking several beers today but cannot say how many. According to this individual, he has been drinking nonstop for the past 4 days, not eating, and falling frequently. He typically drinks a lot but has been drinking more over the past few days. The patient smells of alcohol but is alert and oriented x4. The patient does not remember suffering a fall. He states he has no complaints at this time including no headache, no vision change no neck pain no back pain no chest pain no abdominal pain no musculoskeletal pain in any other part of his body, as well as no focal weakness, numbness, or any other complaints. He does not remember his last tetanus shot. In the emergency room patient alcohol level is 0.43. Also AST is 473 ALT [address] scan of the head shows no acute intracranial abnormality -Alcohol withdrawal symptoms; Current Visit: Yes Status: Acute Resolved, no tremulousness, no agitation CIWA protocol discontinued Closely monitor, Ativan low-dose as needed for agitation or tremulousness --Intermittent SVT ; resolved Current Visit: Yes Status: Acute Nonsustained SVT secondary to delirium tremens/alcohol withdrawal Echocardiogram 08/31/2020: LVEF is 50 to 55%. LV normal size, LV SF normal. Mild diastolic dysfunction. RV SF is normal. Mild MR. RVSP is 36 mmHg. Continue current rate control /antihypertensive regimen: Metoprolol 50 mg twice daily --Transaminitis; Current Visit: Yes Status: Acute Trending down, due to alcoholic hepatitis Trending down --Chronic alcohol use; Current Visit: Yes Status: Chronic Strongly advised the patient to quit alcohol intake Advised to seek alcohol rehabilitation, alcohol Anonymous Patient verbalized understanding --Alcohol liver disease; LFTs trending down Current Visit: Yes Status: Acute Secondary to chronic alcohol use Advised to quit alcohol intake LFTs trending down, GI evaluated Hepatitis panel negative --Hypokalemia; Current Visit: Yes Status: Acute . Resolved --Hypophosphatemia; resolved Current Visit: Yes Status: Acute. phosphate levels normal today Monitor electrolytes -- Alcohol intoxication/present on admission Current Visit: Yes Status: Acute Resolved, thiamine folic acid and multivitamins --Status post fall Current Visit: Yes Status: Acute PT OT recommended subacute rehab -- Facial injury Current Visit: Yes Status: Acute Face CT and cervical spine and head CT shows no acute injury. PT OT recommended subacute rehab -- Hypertension Current Visit: Yes Status: Acute Well controlled , as needed hydralazine 10 mg IV --Mild to moderate malnutrition and hypoalbuminemia; Current Visit: Yes Status: Acute Nutrition supplements and supportive care --PTSD (post-traumatic stress disorder) Current Visit: Yes Status: Acute We will monitor the patient closely. Outpatient follow-up with psych -- DVT prophylaxis; Current Visit: Yes Status: Acute SCD for DVT prophylaxis because of facial trauma. Pepcid 20 mg p.o. twice daily for GI prophylaxis. Patient is a full code DC planning per case management Awaiting placement Patient is medically stable for discharge 09/15: Patient ambulating the hallway no acute distress I had extensive discussion with the patient today and he verbalized understanding that he is to enroll in AA. Discussed with case management no rehab facility willing to accept the patient at this time. Disposition: DC-01 TO HOME OR SELFCARE Final Discharge Diagnosis (Prints w/discharge instructions): Alcoholic liver disease with DTs Time spent for discharge: 35 minutes Core Measure Documentation - Palliative Care Palliative Care/ Comfort Measures: Not Applicable - Core Measures Any of the following diagnoses?: none Exam - Physical Exam Narrative exam: VITAL SIGNS: Reviewed. GENERAL: The patient appears normally developed, otherwise disheveled appearing vital signs as documented. HEAD: No signs of head trauma. EYES: Pupils are equal. Extraocular motions intact. EARS: Hearing grossly intact. MOUTH: Oropharynx is normal. NECK: No adenopathy, no JVD. CHEST: Chest with clear breath sounds bilaterally. No wheezes, rales, or rhonchi. CARDIAC: Regular rate and rhythm. S1 and S2, without murmurs, gallops, or rubs. VASCULAR: No Edema. Peripheral pulses normal and equal in all extremities. ABDOMEN: Soft, non tender and non distended. No rebound or guarding, and no masses palpated. Bowel Sounds normal. MUSCULOSKELETAL: Good range of motion of all major joints. Extremities without clubbing, cyanosis or edema. NEUROLOGIC EXAM: Alert and oriented x 3 No focal sensory or strength deficits. Speech normal. Follows commands. PSYCHIATRIC: Mood normal. He appears to comprehend. Requesting that he wants to go home bleeding with no distress SKIN: detail exam as documented in skin assessment - Constitutional Vitals: Temp Pulse Resp BP Pulse Ox 98.6 F 69 17 127/76 98 09/15/20 07:31 09/15/20 09:18 09/15/20 09:52 09/15/20 09:18 09/15/20 09:52 Plan Activity: advance as tolerated, fall precautions Diet: regular Special Instructions: record daily weights, record daily BP diary Plan of Treatment: Must avoid alcohol on a role in AA Follow up with: PRIMARY CARE, [Primary Care Provider] - 3-5 Days Prescriptions: Folic Acid/Vit Bcomp&C/Cu/Znox [Folbee Plus Cz] 1 each PO QDAY #30 tablet Metoprolol [Lopressor TAB] 50 mg PO BID #60 tablet Famotidine [Pepcid] 20 mg PO DAILY #30 tablet Thiamine [Vitamin B-1] 100 mg PO QDAY #30 tablet
[2020-09-15 14:17] VITALS: BP 136/86
== END 2020-09-15 16:16 | disposition home health service (06) | DRG 433 ==
LOC: ED 21:43 → 4A 08-30 04:07 → CC1 08-31 23:22 → 4A 09-01 16:14
PROVIDERS: ADMIT Hospitalist; ATTEND Internal Medicine
DX: K70.9 Alcoholic liver disease, unspecified (principal); I47.1 Supraventricular tachycardia; E44.0 Moderate protein-calorie malnutrition; F10.231 Alcohol dependence with withdrawal delirium; R74.01 Elevation of levels of liver transaminase levels; F43.11 Post-traumatic stress disorder, acute; E83.39 Other disorders of phosphorus metabolism; E87.6 Hypokalemia; S09.93XA Unspecified injury of face, initial encounter; Y90.1 Blood alcohol level of 20-39 mg/100 ml; Z20.822 Contact with and (suspected) exposure to COVID-19; I10 Essential (primary) hypertension; F10.229 Alcohol dependence with intoxication, unspecified; W18.39XA Other fall on same level, initial encounter; Y93.89 Activity, other specified; Z72.89 Other problems related to lifestyle; Z68.22 Body mass index [BMI] 22.0-22.9, adult; Y92.89 Other specified places as the place of occurrence of the external cause; Y99.8 Other external cause status
CPT/HCPCS: 36415; 70450; 70486; 71045; 72125; 80048; 80053; 80076; 80307; 80320; 82550; 82962; 83735; 84100; 84484; 85007; 85025; 85027; 85610; 85730; 86706; 86708; 86803; 90715; 93005; 93306; 94640; 94644; 96374; G0378; G0480; J0153; J2060; J3411; J3480; J7030; U0003